=== PATIENT | female | born 1990 | race Caucasian/White ===

== ENCOUNTER 2023-10-26 21:55 | Emergency (ER) | payer MEDICAID, SELFPAY ==
[2023-10-26 21:59] VITALS: BP 147/118; PULSE 139; RESP 22; TEMP 37.3; O2SAT 96; BMI 39.9
--- NOTE | 2023-10-26 22:25 | XR_ITS ---
The [address] [address] Patient Name: FELIZ WEINBERG MRN: [id number] date: 1990 Sex: F Assigned Patient Location: ER Current Patient Location: ER Accession/Order Number: [id number] Exam Date: 10/26/2023 22:30 Report Date: 10/26/2023 22:49 At the request of: BRENNEN SAMUELS Procedure: XR hand LT min 3V EXAM: XR hand LT min 3V HISTORY: hand injury COMPARISON: None. TECHNIQUE: 3 views left hand FINDINGS: There is a anterior dislocation of the proximal fourth interphalangeal joint. Foreshortening of the joint of approximately 5-6 mm. No definite fracture. Carpal rows and arcs are maintained. XR/XR hand LT min 3V IMPRESSION: Anterior subluxation of the fourth proximal interphalangeal joint with overlying soft tissue swelling. Electronically authenticated by: KILO MONTERO Date: 10/26/2023 22:49
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
[2023-10-26] MEDS: ACETAMINOPHEN 500 MG TABLET 1000 MG PO (23:07)
[2023-10-26] MEDS: IBUPROFEN 400 MG TABLET 800 MG PO (23:08)
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
[2023-10-27] MEDS: ONDANSETRON 4 MG RAPDIS TABLET SL (00:11)
[2023-10-27 00:25] VITALS: BP 180/96; PULSE 118; RESP 16; TEMP 36.8; O2SAT 97
== END 2023-10-27 00:30 | disposition home or self-care (01) ==
PROVIDERS: Emergency Provider Emergency Medicine
DX: S63.285A Dislocation of proximal interphalangeal joint of left ring finger, initial encounter (principal); S09.90XA Unspecified injury of head, initial encounter; S00.03XA Contusion of scalp, initial encounter; Y04.8XXA Assault by other bodily force, initial encounter
CPT/HCPCS: 26770; 73130; 73140; 99283

== ENCOUNTER 2025-01-14 16:29 | Emergency (ER) | payer MEDICAID, SELFPAY ==
[2025-01-14 16:38] VITALS: BP 143/96; PULSE 112; TEMP 36.9; O2SAT 98; BMI 38.9
--- OUTSIDE RECORDS SUMMARY | 2025-01-14 16:44 | XMS_ITS | CCD ---
Author Organization [facility] CliniSyin Care Team Providers Care Biomass Plant Technician Name Role Phone SG, DR GALLAGHER Primary Care Unavailable PAY, DR CASSIDY Admitting Unavailable PAY, DR CASSIDY Attending Unavailable MERNA, DR GRAEME Greenwood Consulting Unavailable PAY, DR CASSIDY Consulting Unavailable MILLIE, ABIODUN HARRIS Consulting Unavailable ANI, DR ZOYA Carrizales Admitting Unavailable ANI, DR ZOYA Carrizales Attending Unavailable ROSA, DR GALLAGHER Primary Care Unavailable ANI, DR ZOYA Carrizales Consulting Unavailable HOMER RODRIGUEZ Consulting Unavailable [facility] Primary Care Provider ROSHAN Falk Emergency Provider [phone] [facility] Primary Care Provider DO Gagandeep Bernard Attending Provider [phone] DO Vignesh Vogel Other Provider [facility] Primary Care Provider Gagandeep Bernard DO Attending Provider Vignesh Vogel DO Other Provider Alec Antoine DO Emergency Provider Brayan Calderón MD Admit Provider Brayan Calderón MD Attending Provider [phone] [facility] Primary Care Unavaila Isak Avendano Attending Unavailable Isak Falk Admharvey Unavailable [facility] Primary Care Unavaila Gagandeep Yee Attending Unavailable Gagandeep Bernard Admitting Unavailable Vignesh Vogel Consulting Unavailable [facility] Primary Care Unavaila Brayan Kyle Attending Unavailable Brayan Calderón Admitting Unavailable Medications Current Medications Medication Drug Class(es) Dates Sig (Normalized) Sig (Original) [id number] 200 actuat albuterol 0.09 mg/actuat metered dose inhaler (7 sources) beta2-Adrenergic Agonist Start: 10-01-2024 End: 10-03-2024 take 1 puff(s) by inhalation every four hours as needed for wheezing Albuterol Sulfate 90 mcg/actuation HFA aerosol inhaler Active 1 PUFF INHALATION Q4H as needed for shortness of breath or wheezing 8.5 October 03, 2024 11:56am Start: 03-12-2018 End: 06-05-2018 take 1 puff(s) by inhalation every four to six hours as needed for wheezing Albuterol Sulfate 90 mcg/actuation Hfa Aerosol Inhaler Discontinued 2 PUFF INHALATION EVERY 4-6 HOURS as needed for Shortness Of Breath Or Wheezing March 11, 2018 11:00pm June 05, 2018 7:09pm Blood-Glucose Meter kit (1 source) Start: 10-03-2024 Blood-Glucose Meter kit Active KIT 1 October 03, 2024 12:00am glucose checks four times daily 0.5 ml dulaglutide 1.5 mg/ml auto-injector (2 sources) GLP-1 Receptor Agonist Start: 10-01-2024 Dulaglutide (Trulicity) 0.75 mg/0.5 mL pen injector Active 0.75 MG SUBCUT TU@0900 October 01, 2024 12:00am escitalopram 20 mg oral tablet (2 sources) Serotonin Reuptake Inhibitor Start: 10-01-2024 take 1 tablet by mouth once daily Escitalopram Oxalate 20 mg tablet Active 20 MG PO Daily October 01, 2024 12:00am Fluticasone Propion-Salmeterol (1 source) Corticosteroid, beta2-Adrenergic Agonist Start: 10-03-2024 Fluticasone Propion-Salmeterol (Advair Diskus) 250-50 mcg/dose blister with device Active 1 INH INHALATION Twice daily 60 October 03, 2024 12:00am may use whatever steroid/LABA inhaler is on formulary, if cheaper;intermediate or high dose hydrOXYzine pamoate 25 mg oral capsule (2 sources) Antihistamine Start: 10-01-2024 take 1 capsule by mouth three times daily as needed for anxiety Hydroxyzine Pamoate 25 mg capsule Active 25 MG PO Three times daily as needed for anxiety October 01, 2024 12:00am Insulin Aspart U-100 (Novolog Flexpen U-100 Insulin) 100 unit/mL (3 mL) Insulin Pen (1 source) Start: 10-03-2024 Insulin Aspart U-100 (Novolog Flexpen U-100 Insulin) 100 unit/mL (3 mL) Insulin Pen Active 0 UNIT SUBCUT 3X/Day with meals and bedtime 3 October 03, 2024 12:00am Please contact the information source for Protocol details. 3 ml insulin glargine 100 unt/ml pen injector (1 source) Insulin Analog Start: 10-03-2024 inject 10 [IU] by subcutaneous injection once daily Insulin Glargine (Lantus Solostar U-100 Insulin) 100 unit/mL (3 mL) Insulin Pen Active 10 UNIT SUBCUT Daily 0.5 October 03, 2024 12:00am isopropyl alcohol 0.7 ml/ml medicated pad (1 source) Start: 10-03-2024 Alcohol Swabs pads, medicated Active 1 PAD TOPICAL Four times daily October 03, 2024 12:00am glucose checks four times daily methylPREDNISolone 16 mg oral tablet (1 source) Corticosteroid Start: 10-03-2024 take 2 tablets by mouth twice daily Methylprednisolone 16 mg Tablet Active 32 MG PO Twice daily 20 October 03, 2024 12:00am Norgestimate-Ethinyl Estradiol (Fpg-Za-Chyawtcon) 0.18/0.215/0.25 mg-25 mcg tablet (2 sources) Start: 10-01-2024 take 1 tablet by mouth once daily Norgestimate-Ethinyl Estradiol (Aiy-Nw-Cwrzmaayh) 0.18/0.215/0.25 mg-25 mcg tablet Active 1 TAB PO Daily October 01, 2024 12:00am traZODone hydrochloride 50 mg oral tablet (2 sources) Serotonin Reuptake Inhibitor Start: 10-01-2024 take 1 tablet by mouth once daily at bedtime as needed for sleep Trazodone 50 mg tablet Active 50 MG PO Daily at bedtime as needed for sleep October 01, 2024 12:00am Completed/Discontinued Medications Medication Drug Class(es) Dates Sig (Normalized) Sig (Original) azithromycin 250 mg oral tablet (4 sources) Macrolide Antimicrobial Start: 03-12-2018 End: 06-05-2018 Azithromycin 250 mg tablet Discontinued 250 MG PO Daily March 11, 2018 11:00pm June 05, 2018 7:09pm Take two tabs (500mg) on day 1 then take one tab daily for 4 days benzonatate 100 mg oral capsule (4 sources) Non-narcotic Antitussive Start: 12-28-2017 End: 03-12-2018 take 2 capsules by mouth three times daily as needed for cough Benzonatate (Tessalon Perles) 100 mg capsule Discontinued 200 MG PO Three times daily as needed for cough December 28, 2017 12:00am March 12, 2018 10:24am ibuprofen 800 mg oral tablet (4 sources) Nonsteroidal Anti-inflammatory Drug Start: 07-15-2018 End: 10-01-2024 take 1 tablet by mouth three times daily as needed for pain Ibuprofen 800 mg tablet Discontinued 800 MG PO Three times daily as needed for pain July 14, 2018 11:00pm October 01, 2024 2:31pm predniSONE 20 mg oral tablet (4 sources) Start: 03-12-2018 End: 06-05-2018 take 2 tablets by mouth once daily at mealtime Prednisone 20 mg tablet Discontinued 40 MG PO Daily March 11, 2018 11:00pm June 05, 2018 7:09pm administer with food or milk Start: 03-12-2018 End: 06-05-2018 take 40 mg by mouth once daily at mealtime Prednisone Discontinued 40 MG PO Daily March 12, 2018 12:00am June 05, 2018 8:09pm administer with food or milk promethazine hydrochloride 25 mg oral tablet (4 sources) Phenothiazine Start: 06-05-2018 End: 07-15-2018 take 1 tablet by mouth every six hours as needed for nausea and vomiting Promethazine 25 mg tablet Discontinued 25 MG PO Q6H as needed for nausea and vomiting June 04, 2018 11:00pm July 15, 2018 6:28pm Problems Active Problems Problem Classification Problem Date Documented Da te Episodic/Chronic Abdominal pain (4 sources) Unspecified abdominal pain; Translations: [UNSPECIFIED ABDOMINAL PAIN] Onset: 01-24-2022 Episodic Acute bronchitis (5 sources) Acute bronchitis; Translations: [Acute bronchitis, unspecified] Onset: 10-01-2024 10-01-2024 Episodic Calculus of urinary tract (1 source) Calculus of ureter; Translations: [CALCULUS OF URETER] Onset: 01-26-2022 Episodic Chronic obstructive pulmonary disease and bronchiectasis (4 sources) Bronchitis; Translations: [Bronchitis, not specified as acute or chronic] 11-01-2023 Episodic Comment on above: Problem List clean-u p per request of Phys. EHR Cmte Diabetes mellitus without complication (1 source) Hyperglycemia, unspecified; Translations: [Hyperglycemia, unspecified] Onset: 10-01-2024 Episodic Nausea and vomiting (1 source) Nausea with vomiting, unspecified; Translations: [NAUSEA WITH VOMITING UNSPECIFIED] Onset: 01-26-2022 Episodic Other connective tissue disease (3 sources) Pain in left foot; Translations: [PAIN IN LEFT FOOT] Onset: 01-22-2022 Episodic Other connective tissue disease (1 source) Achilles tendinitis, left leg; Translations: [ACHILLES TENDINITIS LEFT LEG] Onset: 01-24-2022 Episodic Other connective tissue disease (4 sources) Tendinitis of finger; Translations: [Other enthesopathies, not elsewhere classified] 02-08-2024 Episodic Other upper respiratory infections (4 sources) Acute upper respiratory infection; Translations: [Acute upper respiratory infection, unspecified] 11-01-2023 Episodic Comment on above: Problem List clean-u p per request of Phys. EHR Cmte Respiratory failure; insufficiency; arrest (adult) (5 sources) Acute hypoxemic respiratory failure; Translations: [Acute respiratory failure with hypoxia] Onset: 10-01-2024 10-01-2024 Episodic Past or Other Problems Problem Classification Problem Date Documented Da te Episodic/Chronic Other connective tissue disease (1 source) Pain in left finger(s); Translations: [Pain in left finger(s)] Onset: 02-08-2024 Episodic Results Test Name Value Interpretation Reference Range Facility Basophils Auto (Bld) [#/Vol] Ordered By: Milady Jay on 10-03-2024 Basophils (Bld) [#/Vol] Automated basophil count 0.0-0.2 [facility] Basophils/100 WBC Auto (Bld) Ordered By: Milady Jay on 10-03-2024 Basophils/100 WBC (Bld) Automated basophil % . [facility] Complete Blood Count Auto Di ffon 10-03-2024 Basophils (Bld) [#/Vol] 0.0 10*3/uL Normal 0.0-0.2 [facility] Comment on above: Result Comment: PERF ORMED BY: [place] [address] PATHOLOGIST ORDINARY SEAMAN MALENA SORIA M.D. Performed By: #### C OVID19 FLU RSV, CEPHEID NEG #### [address] Basophils/100 WBC (Bld) 0.2 % Normal . [facility] Comment on above: Performed By: #### C OVID19 FLU RSV, CEPHEID NEG #### [address] Eosinophils (Bld) [#/Vol] 0.0 10*3/uL Normal 0.0-0.45 [facility] Comment on above: Performed By: #### C OVID19 FLU RSV, CEPHEID NEG #### [address] Eosinophils/100 WBC (Bld) 0.1 % Normal . [facility] Comment on above: Performed By: #### C OVID19 FLU RSV, CEPHEID NEG #### [address] Erythrocyte distribution width (RBC) [Ratio] 12.6 % Normal 11.9-15.3 [facility] Comment on above: Performed By: #### C OVID19 FLU RSV, CEPHEID NEG #### [address] Hematocrit (Bld) [Volume fraction] 37.9 % Normal 34.0-46.4 [facility] Comment on above: Performed By: #### C OVID19 FLU RSV, CEPHEID NEG #### [address] Hemoglobin (Bld) [Mass/Vol] 13.3 g/dL Normal 11.8-15.4 [facility] Comment on above: Performed By: #### C OVID19 FLU RSV, CEPHEID NEG #### [place] [address] [place] Lymphocytes (Bld) [#/Vol] 2.5 10*3/uL Normal 1.00-4.8 [facility] Comment on above: Performed By: #### C OVID19 FLU RSV, CEPHEID NEG #### [address] Lymphocytes/100 WBC (Bld) 12.6 % Normal . [facility] Comment on above: Performed By: #### C OVID19 FLU RSV, CEPHEID NEG #### [address] MCH (RBC) [Entitic mass] 30.1 pg Normal 24.7-34.3 [facility] Comment on above: Performed By: #### C OVID19 FLU RSV, CEPHEID NEG #### [address] MCV (RBC) [Entitic vol] 86.0 fL Normal 80-100 [facility] Comment on above: Performed By: #### C OVID19 FLU RSV, CEPHEID NEG #### [address] Mean Corpuscular HGB Conc 35.0 g/dL Normal 32.0-35.0 [facility] Comment on above: Performed By: #### C OVID19 FLU RSV, CEPHEID NEG #### [address] Monocytes (Bld) [#/Vol] 0.9 10*3/uL High 0.0-0.8 [facility] Comment on above: Performed By: #### C OVID19 FLU RSV, CEPHEID NEG #### [address] Monocytes/100 WBC (Bld) 4.3 % Normal . [facility] Comment on above: Performed By: #### C OVID19 FLU RSV, CEPHEID NEG #### [address] Neutrophils (Bld) [#/Vol] 16.6 10*3/uL High 1.8-7.7 [facility] Comment on above: Performed By: #### C OVID19 FLU RSV, CEPHEID NEG #### [address] Neutrophils/100 WBC (Bld) 82.8 % Normal . [facility] Comment on above: Performed By: #### C OVID19 FLU RSV, CEPHEID NEG #### [address] NRBC% 0.0 /100{WBC} Normal 0-0.5 [facility] Comment on above: Performed By: #### C OVID19 FLU RSV, CEPHEID NEG #### [address] Platelet mean volume (Bld) [Entitic vol] 6.3 fL Normal 6.3-10.7 [facility] Comment on above: Performed By: #### C OVID19 FLU RSV, CEPHEID NEG #### [address] Platelets (Bld) [#/Vol] 434 10*3/uL Normal 150-450 [facility] Comment on above: Performed By: #### C OVID19 FLU RSV, CEPHEID NEG #### [address] RBC (Bld) [#/Vol] 4.41 10*6/uL Normal 3.60-5.00 [facility] Comment on above: Performed By: #### C OVID19 FLU RSV, CEPHEID NEG #### [address] WBC (Bld) [#/Vol] 20.0 10*3/uL High 3.8-11.6 [facility] Comment on above: Performed By: #### C OVID19 FLU RSV, CEPHEID NEG #### [place] [address] [place] Eosinophils Auto (Bld) [#/Vo l]Ordered By: Milady Jay on 10-03-2024 Eosinophils (Bld) [#/Vol] Automated eosinophil count 0.0-0.45 [facility] Eosinophils/100 WBC Auto (Bl d)Ordered By: Milady Jay on 10-03-2024 Eosinophils/100 WBC (Bld) Automated eosinophil % . [facility] Erythrocyte distribution wid th Auto (RBC) [Ratio]Ordered By: Milady Jay on 10-03-2024 Erythrocyte distribution width (RBC) [Ratio] Erythrocyte distribution width [Ratio] by Automated count 11.9-15.3 [facility] Glucose Glucometer (BldC) [M ass/Vol]Ordered By: Brayan Calderón on 10-03-2024 Glucose [Mass/Vol] Capillary blood gluc ose measurement by glucometer (mass/volume) [facility] Comment on above: Random Glucose Refer ence Range is dependent on time and content of last meal. Glucose of more than 200 mg/dL in a nonstressed, ambulatory subject supports the diagnosis of Diabetes Mellitus. Glucose Poct Glucometerson 1 12-03-2023 Glucose [Mass/Vol] 216 mg/dL Normal [facility] Comment on above: Result Comment: [place] Glucose Reference Range is dependent on time and content of last meal. Glucose of more than 200 mg/dL in a nonstressed, ambulatory subject supports the diagnosis of Diabetes Mellitus. PERFORMED BY: [place] [address] PATHOLOGIST ORDINARY SEAMAN MALENA SORIA M.D. Performed By: #### C OVID19 FLU RSV, CEPHEID NEG #### [address] Glucose [Mass/Vol] 273 mg/dL Normal [facility] Comment on above: Result Comment: [place] [facility] Glucose Reference Range is dependent on time and content of last meal. Glucose of more than 200 mg/dL in a nonstressed, ambulatory subject supports the diagnosis of Diabetes Mellitus. PERFORMED BY: [place] [address] PATHOLOGIST ORDINARY SEAMAN MALENA SORIA M.D. Performed By: #### C OVID19 FLU RSV, CEPHEID NEG #### [facility] [address] Hematocrit Auto (Bld) [Volum e fraction]Ordered By: Milady Jay on 10-03-2024 Hematocrit (Bld) [Volume fraction] Hematocrit [Volume Fraction] of Blood by Automated count 34.0-46.4 [facility] Hemoglobin [Mass/volume] in BloodOrdered By: Milady Jay on 10-03-2024 Hemoglobin (Bld) [Mass/Vol] Hemoglobin [Mass/volume] in Blood 11.8-15.4 [facility] Leukocytes [#/volume] correc david for nucleated erythrocytes in Blood by Automated counOrdered By: Milady Jay on 10-03-2024 WBC corrected for nucl RBC Auto (Bld) [#/Vol] Leukocytes [#/volume] corrected for nucleated erythrocytes in Blood by Automated coun High 3.8-11.6 [facility] Lymphocytes Auto (Bld) [#/Vo l]Ordered By: Milady Jay on 10-03-2024 Lymphocytes (Bld) [#/Vol] Lymphocytes [#/volume] in Blood by Automated count 1.00-4.8 [facility] Lymphocytes/100 WBC Auto (Bl d)Ordered By: Milady Jay on 10-03-2024 Lymphocytes/100 WBC (Bld) Lymphocytes/100 leukocytes in Blood by Automated count . [facility] MCH Auto (RBC) [Entitic mass ]Ordered By: Milady Jay on 10-03-2024 MCH (RBC) [Entitic mass] MCH [Entitic mass] by Automated count 24.7-34.3 [facility] MCHC Auto (RBC) [Mass/Vol]Or dered By: Milady Jay on 10-03-2024 MCHC (RBC) [Mass/Vol] MCHC [Mass/volume] by Automated count 32.0-35.0 [facility] MCV Auto (RBC) [Entitic vol] Ordered By: Milady Jay on 10-03-2024 MCV (RBC) [Entitic vol] MCV [Entitic volume] by Automated count 80-100 [facility] Monocytes Auto (Bld) [#/Vol] Ordered By: Milady Jay on 10-03-2024 Monocytes (Bld) [#/Vol] Automated blood monocyte count High 0.0-0.8 [facility] Monocytes/100 WBC Auto (Bld) Ordered By: Milady Jay on 10-03-2024 Monocytes/100 WBC (Bld) Automated monocyte % . [facility] Neutrophils Auto (Bld) [#/Vo l]Ordered By: Milady Jay on 10-03-2024 Neutrophils (Bld) [#/Vol] Neutrophils [#/volume] in Blood by Automated count High 1.8-7.7 [facility] Neutrophils/100 WBC Auto (Bl d)Ordered By: Milady Jay on 10-03-2024 Neutrophils/100 WBC (Bld) Automated neutrophil % . [facility] Nucleated erythrocytes [Pres ence] in Blood by Automated countOrdered By: Milady Jay on 10-03-2024 Nucleated RBC Auto Ql (Bld) Nucleated erythrocytes [Presence] in Blood by Automated count 0-0.5 [facility] Platelet mean volume Auto (B ld) [Entitic vol]Ordered By: Milady Jay on 10-03-2024 Platelet mean volume (Bld) [Entitic vol] Platelet mean volume [Entitic volume] in Blood by Automated count 6.3-10.7 [facility] Platelets Auto (Bld) [#/Vol] Ordered By: Milady Jay on 10-03-2024 Platelets (Bld) [#/Vol] Platelets [#/volume] in Blood by Automated count 150-450 [facility] RBC Auto (Bld) [#/Vol]Ordere d By: Milady Jay on 10-03-2024 RBC (Bld) [#/Vol] Erythrocytes [#/volu me] in Blood by Automated count 3.60-5.00 [facility] WBC Auto (Bld) [#/Vol]Ordere d By: Milady Jay on 10-03-2024 WBC (Bld) [#/Vol] Leukocytes [#/volume ] in Blood by Automated count High 3.8-11.6 [facility] Complete Blood Count Auto Di ffon 10-02-2024 Basophils (Bld) [#/Vol] 0.1 10*3/uL Normal 0.0-0.2 [facility] Comment on above: Result Comment: PERF ORMED BY: [facility] [address] [place] [address] PATHOLOGIST ORDINARY SEAMAN DUC QUIGLEY M.D. Performed By: #### M G, CMP #### [facility] [address] [place] [address] [place] Basophils/100 WBC (Bld) 0.3 % Normal . [facility] Comment on above: Performed By: #### M G, CMP #### [facility] [address] [place] [address] [place] Eosinophils (Bld) [#/Vol] 0.0 10*3/uL Normal 0.0-0.45 [facility] Comment on above: Performed By: #### M G, CMP #### [facility] [address] Eosinophils/100 WBC (Bld) 0.1 % Normal . [facility] Comment on above: Performed By: #### M G, CMP #### [address] Erythrocyte distribution width (RBC) [Ratio] 12.6 % Normal 11.9-15.3 [facility] Comment on above: Performed By: #### M G, CMP #### [address] Hematocrit (Bld) [Volume fraction] 40.0 % Normal 34.0-46.4 [facility] Comment on above: Performed By: #### M G, CMP #### [place] [address] [place] Hemoglobin (Bld) [Mass/Vol] 13.8 g/dL Normal 11.8-15.4 [facility] Comment on above: Performed By: #### M G, CMP #### [facility] [address] [place] [address] [place] Lymphocytes (Bld) [#/Vol] 2.0 10*3/uL Normal 1.00-4.8 [facility] Comment on above: Performed By: #### M G, CMP #### [facility] [address] [place] [address] [place] Lymphocytes/100 WBC (Bld) 9.3 % Normal . [facility] Comment on above: Performed By: #### M G, CMP #### [address] MCH (RBC) [Entitic mass] 29.5 pg Normal 24.7-34.3 [facility] Comment on above: Performed By: #### M G, CMP #### [address] MCV (RBC) [Entitic vol] 85.5 fL Normal 80-100 [facility] Comment on above: Performed By: #### Yaakov G, CMP #### [address] Mean Corpuscular HGB Conc 34.6 g/dL Normal 32.0-35.0 [facility] Comment on above: Performed By: #### Yaakov G, CMP #### [address] Monocytes (Bld) [#/Vol] 0.8 10*3/uL Normal 0.0-0.8 [facility] Comment on above: Performed By: #### Yaakov G, CMP #### [place] [address] [place] Monocytes/100 WBC (Bld) 3.8 % Normal . [facility] Comment on above: Performed By: #### Yaakov G, CMP #### [address] Neutrophils (Bld) [#/Vol] 18.6 10*3/uL High 1.8-7.7 [facility] Comment on above: Performed By: #### Yaakov G, CMP #### [address] Neutrophils/100 WBC (Bld) 86.5 % Normal . [facility] Comment on above: Performed By: #### M G, CMP #### [address] NRBC% 0.1 /100{WBC} Normal 0-0.5 [facility] Comment on above: Performed By: #### Yaakov G, CMP #### [facility] [address] Platelet mean volume (Bld) [Entitic vol] 6.2 fL Low 6.3-10.7 [facility] Comment on above: Performed By: #### M G, CMP #### [facility] [address] Platelets (Bld) [#/Vol] 432 10*3/uL Normal 150-450 [facility] Comment on above: Performed By: #### Yaakov G, CMP #### [address] RBC (Bld) [#/Vol] 4.68 10*6/uL Normal 3.60-5.00 [facility] Comment on above: Performed By: #### Yaakov G, CMP #### [address] WBC (Bld) [#/Vol] 21.5 10*3/uL High 3.8-11.6 [facility] Comment on above: Performed By: #### Yaakov G, CMP #### [address] Glucose Poct Glucometerson 1 12-02-2023 Glucose [Mass/Vol] 170 mg/dL Normal [facility] Comment on above: Result Comment: [facility] Glucose Reference Range is dependent on time and content of last meal. Glucose of more than 200 mg/dL in a nonstressed, ambulatory subject supports the diagnosis of Diabetes Mellitus. PERFORMED BY: [place] [address] PATHOLOGIST ORDINARY SEAMAN MALENA SORIA M.D. Performed By: #### C OVID19 FLU RSV, CEPHEID NEG #### [address] Glucose [Mass/Vol] 214 mg/dL Normal [facility] Comment on above: Result Comment: [facility] Glucose Reference Range is dependent on time and content of last meal. Glucose of more than 200 mg/dL in a nonstressed, ambulatory subject supports the diagnosis of Diabetes Mellitus. PERFORMED BY: [place] [address] PATHOLOGIST ORDINARY SEAMAN MALENA SORAI M.D. Performed By: #### C OVID19 FLU RSV, CEPHEID NEG #### [facility] [address] [place] [address] Glucose [Mass/Vol] 241 mg/dL Normal [facility] Comment on above: Result Comment: [place] Glucose Reference Range is dependent on time and content of last meal. Glucose of more than 200 mg/dL in a nonstressed, ambulatory subject supports the diagnosis of Diabetes Mellitus. PERFORMED BY: [place] [address] PATHOLOGIST ORDINARY SEAMAN MALENA SORIA M.D. Performed By: #### M G, CMP #### [facility] [address] [place] [address] Glucose [Mass/Vol] 214 mg/dL Normal [facility] Comment on above: Result Comment: [place] Glucose Reference Range is dependent on time and content of last meal. Glucose of more than 200 mg/dL in a nonstressed, ambulatory subject supports the diagnosis of Diabetes Mellitus. PERFORMED BY: [place] [address] PATHOLOGIST ORDINARY SEAMAN DUC QUIGLEY M.D. Performed By: #### G LULS #### Point of Care testing , Alanine aminotransferase [En zymatic activity/volume] in Serum or PlasmaOrdered By: Alec Antoine on 10-01-2024 ALT [Catalytic activity/Vol] Alanine aminotransferase [Enzymatic activity/volume] in Serum or Plasma [facility] Albumin [Mass/volume] in Ser um or Plasma by Bromocresol green (BCG) dye binding methoOrdered By: Alec Antoine on 10-01-2024 Albumin BCG dye [Mass/Vol] Albumin [Mass/volume] in Serum or Plasma by Bromocresol green (BCG) dye binding metho 3.5-5.7 [facility] Alkaline phosphatase [Enzyma tic activity/volume] in Serum or PlasmaOrdered By: Alec Antoine on 10-01-2024 ALP [Catalytic activity/Vol] Alkaline phosphatase [Enzymatic activity/volume] in Serum or Plasma 34-104 [facility] Appearance of UrineOrdered B y: Alec Antoine on 10-01-2024 Appearance (U) Urine appearance Clear [facility] Aspartate aminotransferase [ Enzymatic activity/volume] in Serum or PlasmaOrdered By: Alec Antoine on 10-01-2024 AST [Catalytic activity/Vol] Aspartate aminotransferase [Enzymatic activity/volume] in Serum or Plasma 13-39 [facility] B-Type Natriuretic Peptideon 10-01-2024 Natriuretic peptide B (Bld) [Mass/Vol] 22.0 pg/mL Normal 5-100 [facility] Comment on above: Result Comment: PERF ORMED BY: [facility] [address] [place] [address] PATHOLOGIST ORDINARY SEAMAN DUC QUIGLEY M.D. Performed By: #### B CONVERTIBLE TOP INSTALLER, PTT, PT, CBC, HS TROP, CK #### [facility] [address] Bacteria [Presence] in Urine by AutomatedOrdered By: Alec Antoine on 10-01-2024 Bacteria Auto Ql (U) Bacteria [Presence] in Urine by Automated None Seen [facility] Basophils Auto (Bld) [#/Vol] Ordered By: Alec Antoine on 10-01-2024 Basophils (Bld) [#/Vol] Automated basophil count 0.0-0.2 [facility] Basophils/100 WBC Auto (Bld) Ordered By: Alec Antoine on 10-01-2024 Basophils/100 WBC (Bld) Automated basophil % . [facility] Bilirubin Test strip Ql (U)O rdered By: Alec Antoine on 10-01-2024 Bilirubin Ql (U) Bilirubin.total [Pre sence] in Urine by Test strip Negative [facility] Bilirubin.total [Mass/volume ] in Serum or PlasmaOrdered By: Alec Antoine on 10-01-2024 Bilirubin [Mass/Vol] Bilirubin.total [Mass/volume] in Serum or Plasma 0.3-1.0 [facility] Blood Cultureon 10-01-2024 Bacteria identified Cx Nom (Bld) NO GROWTH 5 DAYS PERFORMED BY: [facility] [address] [facility] [place] [address] PATHOLOGIST ORDINARY SEAMAN MALENA SORIA M.D. Normal [facility] Comment on above: Performed By: #### M G, CMP #### [facility] [address] [place] [address] [facility] COVID Cepheid NegativeOrdere d By: Alec Antoine on 10-01-2024 SARS-CoV-2 (COVID-19) Ab IA Ql COVID Cepheid Negative [facility] Comment on above: This is a duplicate Cepheid Xpert Xpress CoV-2/Flu/RSV Plus RNA by RT-PCR result to be used for statistical tracking purpose only. COVID-19 / Flu A/B / RSV PCR on 10-01-2024 SARS-CoV-2 (COVID-19) RNA STEPHAN+probe Ql (Unsp spec) COVID-19 Cepheid Result Negative for SARS-CoV-2 RNA by RT-PCR Flu A Cepheid Result Negative for Flu A RNA by RT-PCR Flu B Cepheid Result Negative for Flu B RNA by RT-PCR RSV Cepheid Result Negative for RSV RNA by RT-PCR COVID19 Blank Space -- Reference: Negative COVID19 Blank Space -- Cepheid Disclaimer The Cepheid Xpert Xpress CoV-2/Flu/RSV Plus has Cepheid Disclaimer not been FDA cleared or approved; this test has Cepheid Disclaimer been authorized by FDA under an EUA for use by Cepheid Disclaimer authorized laboratories; this test has been Cepheid Disclaimer authorized only for the simultaneous qualitative Cepheid Disclaimer detection and differentiation of nucleic acids from Cepheid Disclaimer SARS-CoV-2, influenza A, influenza B, and Cepheid Disclaimer respiratory syncytial virus (RSV), and not for any Cepheid Disclaimer other viruses or pathogens; and this test is only Cepheid Disclaimer authorized for the duration of the declaration that Cepheid Disclaimer circumstances exist justifying the authorization of Cepheid Disclaimer emergency use of in vitro diagnostic tests for Cepheid Disclaimer detection and/or diagnosis of COVID-19 under Cepheid Disclaimer Section 564(b)(1) of the Act, 21 U.S.C. 360bbb- Cepheid Disclaimer 3(b)(1), unless the authorization is terminated or Cepheid Disclaimer revoked sooner. PERFORMED BY: [place] [address] PATHOLOGIST ORDINARY SEAMAN DUC QUIGLEY M.D. Normal [facility] Comment on above: Performed By: #### C OVID19 FLU RSV, CEPHEID NEG #### [address] angio chest PE protocolon 10-01-2024 CT angio chest PE protocol [facility] [place] [address] [place] [address] CT Scan Report Signed Patient: Stephanie Zayas MR#: [id number] : 1990 Acct:[id number] Age/Sex: 34 / F ADM Date: 10/01/24 Loc: ER Room: Type: [facility] Attending Dr: Copies to: Alec Antoine DO Ordering Provider: Alec Antoine DO Date of Service: 10/01/24 CT/CT angio chest PE protocol: dyspnea CT PULMONARY ANGIOGRAM WITH CONTRAST CLINICAL HISTORY: Cough and shortness of breath COMPARISON: None TECHNIQUE: Spiral images were obtained through the chest following intravenous administration of 90 mL of Isovue 370. Images were reviewed using both narrow and wide window settings. Sagittal, coronal and 3 D volume-rendered reconstructions were performed and reviewed. This CT exam was performed using one or more following dose reduction techniques: Automated exposure control, adjustment of the mA and/or kV according to patient size, or use of iterative reconstruction technique. FINDINGS: The heart is not enlarged. There is no pericardial effusion. No aortic aneurysm or dissection is seen. There is adequate opacification of the pulmonary arteries. There is some res piratory motion. No definite urinary emboli are identified. A few small nonpathologic mediastinal lymph nodes are present. There is minor endplate spurring at the spine. Respiratory motion slightly limits evaluation of the lung parenchyma. There is no infiltrate, effusion or pneumothorax. The tiny left lower lobe nodular density adjacent to the major fissure may be an intrapulmonary lymph node. Limited cuts through the upper abdomen show possible fatty liver. There is a tiny low-density left adrenal nodule and mild thickening of the adrenal limbs. CT/CT angio chest PE protocol IMPRESSION: NO OBVIOUS PULMONARY EMBOLISM WITHIN LIMITS OF RESPIRATORY MOTION. NO ACUTE INTRATHORACIC FINDINGS. Impression dictated by: Kati Mckeon M.D.10/01/2024 1:55 PM Dictation Location: [place] [address] Transcribed By: MO 10/01/24 1355 Dictated By: Kati Mckeon MD 10/01/24 1347 Signed By: 10/01/24 1355 Normal [facility] Calcium [Mass/volume] in Ser um or PlasmaOrdered By: Alec Antoine on 10-01-2024 Calcium [Mass/Vol] Calcium [Mass/volume ] in Serum or Plasma 8.6-10.3 [facility] Carbon dioxide, total [Moles /volume] in Serum or PlasmaOrdered By: Alec Antoine on 10-01-2024 CO2 [Moles/Vol] Carbon dioxide, tota l [Moles/volume] in Serum or Plasma 21.0-31.0 [facility] Cepheid COVID PCR Negativeon 10-01-2024 SARS-CoV-2 (COVID-19) RNA STEPHAN+probe Ql (Unsp spec) Negative Normal Negative [facility] Comment on above: Result Comment: This is a duplicate Cepheid Xpert Xpress CoV-2/Flu/RSV Plus RNA by RT-PCR result to be used for statistical tracking purpose only. PERFORMED BY: [place] [address] PATHOLOGIST ORDINARY SEAMAN DUC QUIGLEY M.D. Performed By: #### C OVID19 FLU RSV, CEPHEID NEG #### [address] Chloride [Moles/volume] in S zully or PlasmaOrdered By: Alec Antoine on 10-01-2024 Chloride [Moles/Vol] Chloride [Moles/vol ume] in Serum or Plasma 98-107 [facility] Color Auto (U)Ordered By: Shailesh Antoine on 10-01-2024 Color (U) Color of Urine by Auto Yellow [facility] Complete Blood Count Auto Di ffon 10-01-2024 Basophils (Bld) [#/Vol] 0.1 10*3/uL Normal 0.0-0.2 [facility] Comment on above: Result Comment: PERF ORMED BY: [place] [address] PATHOLOGIST ORDINARY SEAMAN DUC QUIGLEY M.D. Performed By: #### B CONVERTIBLE TOP INSTALLER, PTT, PT, CBC, HS TROP, CK #### [address] Basophils/100 WBC (Bld) 0.8 % Normal . [facility] Comment on above: Performed By: #### B CONVERTIBLE TOP INSTALLER, PTT, PT, CBC, HS TROP, CK #### [address] Eosinophils (Bld) [#/Vol] 1.1 10*3/uL High 0.0-0.45 [facility] Comment on above: Performed By: #### B CONVERTIBLE TOP INSTALLER, PTT, PT, CBC, HS TROP, CK #### [address] Eosinophils/100 WBC (Bld) 5.8 % Normal . [facility] Comment on above: Performed By: #### B CONVERTIBLE TOP INSTALLER, PTT, PT, CBC, HS TROP, CK #### [address] Erythrocyte distribution width (RBC) [Ratio] 12.9 % Normal 11.9-15.3 [facility] Comment on above: Performed By: #### B CONVERTIBLE TOP INSTALLER, PTT, PT, CBC, HS TROP, CK #### [address] Hematocrit (Bld) [Volume fraction] 40.9 % Normal 34.0-46.4 [facility] Comment on above: Performed By: #### B CONVERTIBLE TOP INSTALLER, PTT, PT, CBC, HS TROP, CK #### [address] Hemoglobin (Bld) [Mass/Vol] 14.4 g/dL Normal 11.8-15.4 [facility] Comment on above: Performed By: #### B CONVERTIBLE TOP INSTALLER, PTT, PT, CBC, HS TROP, CK #### [address] Lymphocytes (Bld) [#/Vol] 2.5 10*3/uL Normal 1.00-4.8 [facility] Comment on above: Performed By: #### B CONVERTIBLE TOP INSTALLER, PTT, PT, CBC, HS TROP, CK #### [address] Lymphocytes/100 WBC (Bld) 13.6 % Normal . [facility] Comment on above: Performed By: #### B CONVERTIBLE TOP INSTALLER, PTT, PT, CBC, HS TROP, CK #### [address] MCH (RBC) [Entitic mass] 30.3 pg Normal 24.7-34.3 [facility] Comment on above: Performed By: #### B CONVERTIBLE TOP INSTALLER, PTT, PT, CBC, HS TROP, CK #### [address] MCV (RBC) [Entitic vol] 85.8 fL Normal 80-100 [facility] Comment on above: Performed By: #### B CONVERTIBLE TOP INSTALLER, PTT, PT, CBC, HS TROP, CK #### [address] Mean Corpuscular HGB Conc 35.3 g/dL High 32.0-35.0 [facility] Comment on above: Performed By: #### B CONVERTIBLE TOP INSTALLER, PTT, PT, CBC, HS TROP, CK #### [address] Monocytes (Bld) [#/Vol] 1.3 10*3/uL High 0.0-0.8 [facility] Comment on above: Performed By: #### B CONVERTIBLE TOP INSTALLER, PTT, PT, CBC, HS TROP, CK #### [facility] [address] [place] [address] [place] Monocytes/100 WBC (Bld) 18.16 % Normal 0.00-20.00 [facility] Comment on above: Performed By: #### B CONVERTIBLE TOP INSTALLER, PTT, PT, CBC, HS TROP, CK #### [place] [address] [place] Monocytes/100 WBC (Bld) 7.2 % Normal . [facility] Comment on above: Performed By: #### B CONVERTIBLE TOP INSTALLER, PTT, PT, CBC, HS TROP, CK #### [address] Neutrophils (Bld) [#/Vol] 13.1 10*3/uL High 1.8-7.7 [facility] Comment on above: Performed By: #### B CONVERTIBLE TOP INSTALLER, PTT, PT, CBC, HS TROP, CK #### [place] [address] [place] Neutrophils/100 WBC (Bld) 72.6 % Normal . [facility] Comment on above: Performed By: #### B CONVERTIBLE TOP INSTALLER, PTT, PT, CBC, HS TROP, CK #### [place] [address] [place] NRBC% 0.1 /100{WBC} Normal 0-0.5 [facility] Comment on above: Performed By: #### B CONVERTIBLE TOP INSTALLER, PTT, PT, CBC, HS TROP, CK #### [place] [address] [place] Platelet mean volume (Bld) [Entitic vol] 6.1 fL Low 6.3-10.7 [facility] Comment on above: Performed By: #### B CONVERTIBLE TOP INSTALLER, PTT, PT, CBC, HS TROP, CK #### [place] [address] [place] Platelets (Bld) [#/Vol] 423 10*3/uL Normal 150-450 [facility] Comment on above: Performed By: #### B CONVERTIBLE TOP INSTALLER, PTT, PT, CBC, HS TROP, CK #### [address] RBC (Bld) [#/Vol] 4.77 10*6/uL Normal 3.60-5.00 [facility] Comment on above: Performed By: #### B CONVERTIBLE TOP INSTALLER, PTT, PT, CBC, HS TROP, CK #### [address] WBC (Bld) [#/Vol] 18.1 10*3/uL High 3.8-11.6 [facility] Comment on above: Performed By: #### B CONVERTIBLE TOP INSTALLER, PTT, PT, CBC, HS TROP, CK #### [address] Comprehensive Metabolic Pane [facility] 10-01-2024 Albumin [Mass/Vol] 4.7 g/dL Normal 3.5-5.7 [facility] Comment on above: Performed By: #### Yaakov Vigil, CMP #### [address] Albumin/Globulin [Mass ratio] 1.4 {ratio} Normal [facility] Comment on above: Performed By: #### Yaakov Vigil, CMP #### [address] ALP [Catalytic activity/Vol] 78 U/L Normal 34-104 [facility] Comment on above: Performed By: #### M Musa, CMP #### [address] ALT [Catalytic activity/Vol] 40 U/L Normal 7-52 [facility] Comment on above: Performed By: #### M G, CMP #### [address] Anion gap [Moles/Vol] 14.5 mmol/L Normal 6.0-15.0 [facility] Comment on above: Performed By: #### Yaakov Vigil, CMP #### [address] AST [Catalytic activity/Vol] 23 U/L Normal 13-39 [facility] Comment on above: Performed By: #### Yaakov Vigil, CMP #### [address] Bilirubin [Mass/Vol] 0.5 mg/dL Normal 0.3-1.0 [facility] Comment on above: Performed By: #### Yaakov Vigil, CMP #### [address] Calcium [Mass/Vol] 9.3 mg/dL Normal 8.6-10.3 [facility] Comment on above: Performed By: #### Yaakov Vigil, CMP #### [address] Chloride [Moles/Vol] 102 mmol/L Normal 98-107 [facility] Comment on above: Performed By: #### Yaakov Vigil, CMP #### [address] CO2 [Moles/Vol] 22.4 mmol/L Normal 21.0-31.0 [facility] Comment on above: Performed By: #### Yaakov Vigil, CMP #### [address] Creatinine [Mass/Vol] 0.60 mg/dL Normal 0.60-1.20 [facility] Comment on above: Performed By: #### Yaakov Vigil, CMP #### [address] Creatinine Clr Calc Pharmacy 176.33 Normal [facility] Comment on above: Performed By: #### Yaakov Vigil, CMP #### [address] GFR/1.73 sq M.predicted MDRD (S/P/Bld) [Vol rate/Area] mL/min/{1.73_m2} Normal [facility] Comment on above: Performed By: #### Yaakov Vigil, CMP #### [address] Globulin (S) [Mass/Vol] 3.3 g/dL Normal [facility] Comment on above: Performed By: #### M G, CMP #### [address] Glucose [Mass/Vol] 220 mg/dL High 70-100 [facility] Comment on above: Result Comment: [place] Glucose Reference Range is dependent on time and content of last meal. Glucose of more than 200 mg/dL in a nonstressed, ambulatory subject supports the diagnosis of Diabetes Mellitus. ADA recommended reference range Performed By: #### M G, CMP #### [address] Potassium [Moles/Vol] 3.9 mmol/L Normal 3.5-5.1 [facility] Comment on above: Performed By: #### Yaakov G, CMP #### [place] [address] [place] Protein [Mass/Vol] 8.0 g/dL Normal 6.4-8.9 [facility] Comment on above: Performed By: #### Yaakov G, CMP #### [place] [address] [place] Sodium [Moles/Vol] 135 mmol/L Low 136-145 [facility] Comment on above: Performed By: #### Yaakov G, CMP #### [place] [id number] [place] Urea nitrogen [Mass/Vol] 10 mg/dL Normal 7-25 [facility] Comment on above: Performed By: #### M G, CMP #### [place] [id number] [place] Creatine Kinaseon 10-01-2024 CK [Catalytic activity/Vol] 147 U/L Normal 30-223 [facility] Comment on above: Performed By: #### B CONVERTIBLE TOP INSTALLER, PTT, PT, CBC, HS TROP, CK #### [place] [id number] [place] Creatine kinase [Enzymatic a ctivity/volume] in Serum or PlasmaOrdered By: Alec Antoine on 10-01-2024 CK [Catalytic activity/Vol] Creatine kinase [Enzymatic activity/volume] in Serum or Plasma 30-223 [facility] Creatinine [Mass/volume] in Serum or PlasmaOrdered By: Alec Antoine on 10-01-2024 Creatinine [Mass/Vol] Creatinine [Mass/v olume] in Serum or Plasma 0.60-1.20 [facility] Dipstick and Microscopicon 1 12-01-2023 Appearance (U) Clear Normal Clear [facility] Comment on above: Order Comment: Name Collection Type:: Clean-Voided Midstream Performed By: #### C OVID19 FLU RSV, CEPHEID NEG #### [address] Bacteria,Urine None Seen Normal None Seen [facility] Comment on above: Order Comment: Name Collection Type:: Clean-Voided Midstream Performed By: #### C OVID19 FLU RSV, CEPHEID NEG #### [place] [address] [place] Bilirubin,Urine Negative Normal Negative [facility] Comment on above: Order Comment: Name Collection Type:: Clean-Voided Midstream Performed By: #### C OVID19 FLU RSV, CEPHEID NEG #### [place] [address] [place] Color (U) Light-Yellow Normal Yellow [facility] Comment on above: Order Comment: Name Collection Type:: Clean-Voided Midstream Performed By: #### C OVID19 FLU RSV, CEPHEID NEG #### [place] [address] [place] Glucose Ql (U) 300 mg/dL High Normal [facility] Comment on above: Order Comment: Name Collection Type:: Clean-Voided Midstream Performed By: #### C OVID19 FLU RSV, CEPHEID NEG #### [place] [address] [place] Hyaline Casts,Urine None Normal 0-8 [facility] Comment on above: Order Comment: Name Collection Type:: Clean-Voided Midstream Result Comment: PERF ORMED BY: [place] [address] PATHOLOGIST ORDINARY SEAMAN DUC QUIGLEY M.D. Performed By: #### C OVID19 FLU RSV, CEPHEID NEG #### [address] Ketones Ql (U) Negative Normal Negative [facility] Comment on above: Order Comment: Name Collection Type:: Clean-Voided Midstream Performed By: #### C OVID19 FLU RSV, CEPHEID NEG #### [address] Leukocyte esterase Test strip Ql (U) Negative Normal Negative [facility] Comment on above: Order Comment: Name Collection Type:: Clean-Voided Midstream Performed By: #### C OVID19 FLU RSV, CEPHEID NEG #### [place] [address] [place] Nitrite,Urine Negative Normal Negative [facility] Comment on above: Order Comment: Name Collection Type:: Clean-Voided Midstream Performed By: #### C OVID19 FLU RSV, CEPHEID NEG #### [address] Occult Blood,Urine Negative Normal Negative [facility] Comment on above: Order Comment: Name Collection Type:: Clean-Voided Midstream Result Comment: PERF ORMED BY: [place] [address] PATHOLOGIST ORDINARY SEAMAN DUC QUIGLEY M.D. Performed By: #### C OVID19 FLU RSV, CEPHEID NEG #### [address] pH (U) 6.0 [pH] Normal 5.0-9.0 [facility] Comment on above: Order Comment: Name Collection Type:: Clean-Voided Midstream Performed By: #### C OVID19 FLU RSV, CEPHEID NEG #### [address] Protein (U) [Mass/Vol] 30 mg/dL High Negative [facility] Comment on above: Order Comment: Name Collection Type:: Clean-Voided Midstream Performed By: #### C OVID19 FLU RSV, CEPHEID NEG #### [address] RBC,Urine None Seen Normal 0-4 [facility] Comment on above: Order Comment: Name Collection Type:: Clean-Voided Midstream Performed By: #### C OVID19 FLU RSV, CEPHEID NEG #### [address] Specificy [place],Urine 1.028 Normal 1.001-1.030 [facility] Comment on above: Order Comment: Name Collection Type:: Clean-Voided Midstream Performed By: #### C OVID19 FLU RSV, CEPHEID NEG #### [address] Squamous Epithelial Cell,Urine 1 [HPF] Normal 0-2 [facility] Comment on above: Order Comment: Name Collection Type:: Clean-Voided Midstream Performed By: #### C OVID19 FLU RSV, CEPHEID NEG #### [address] Urobilinogen,Urine Normal Normal Normal [facility] Comment on above: Order Comment: Name Collection Type:: Clean-Voided Midstream Performed By: #### C OVID19 FLU RSV, CEPHEID NEG #### [address] WBC,Urine 1 [HPF] Normal 0-4 [facility] Comment on above: Order Comment: Name Collection Type:: Clean-Voided Midstream Performed By: #### C OVID19 FLU RSV, CEPHEID NEG #### [address] ECG 12 lead ECGon 10-01-2024 ECG 12 lead ECG [facility] [place] [address] [place] [address] Electrocardiograph Report Signed Patient: Stephanie Zayas MR#: [id number] : 1990 Acct:[id number] Age/Sex: 34 / F ADM Date: 10/01/24 Loc: Room: [address] [place] [address] Type: ADM IN Attending Dr: Brayan Calderón MD Ordering Provider: Alec Antoine DO Date of Service: 10/01/2411/12/1637 ECG/ECG 12 lead ECG: clinically indicated Copies to: Test Reason : Blood Pressure : 180/103 mmHG Vent. Rate : 134 BPM Atrial Rate : 134 BPM P-R Int : 132 ms QRS Dur : 90 ms QT Int : 300 ms P-R-T Axes : 77 -61 76 degrees QTcB Int : 448 ms Sinus tachycardia Left anterior fascicular block Septal infarct , age undetermined Abnormal ECG When compared with ECG of 01-Oct-2024 11:45, Left anterior fascicular block is now present Septal infarct is now present Confirmed by LILIANA WEBBER DO ([id number]) on 10/02/2024 2:01:30 AM Referred By: Electronically Signed By: LILIANA WEBBER DO Transcribed By: MUS Signed By Liliana Webber DO 0201 Normal [facility] ECG 12 lead ECG [facility] [place] [address] [place] [address] Electrocardiograph Report Signed Patient: Stephanie Zayas MR#: [id number] : 1990 Acct:[id number] Age/Sex: 34 / F ADM Date: 10/01/24 Loc: ER Room: Type: [facility] ER Attending Dr: Ordering Provider: Alec Antoine DO Date of Service: 10/01/2411/12/1155 ECG/ECG 12 lead ECG: Shortness of Breath/Dyspnea Copies to: Test Reason : Blood Pressure : 185/97 mmHG Vent. Rate : 96 BPM Atrial Rate : 96 BPM P-R Int : 154 ms QRS Dur : 94 ms QT Int : 390 ms P-R-T Axes : 72 -7 56 degrees QTcB Int : 492 ms Normal sinus rhythm Incomplete right bundle branch block Prolonged QT Confirmed by Alec ANTOINE DO ([id number]) on 10/01/2024 2:09:05 PM Referred By: Electronically Signed By: Alec ANTOINE DO Transcribed By: MUS Signed By Alec Antoine DO 1 12/01/23 1409 Normal [facility] Eosinophils Auto (Bld) [#/Vo l]Ordered By: Alec Antoine on 10-01-2024 Eosinophils (Bld) [#/Vol] Automated eosinophil count High 0.0-0.45 [facility] Eosinophils/100 WBC Auto (Bl d)Ordered By: Alec Antoine on 10-01-2024 Eosinophils/100 WBC (Bld) Automated eosinophil % . [facility] Epithelial cells.squamous [# /area] in Urine sediment by Automated countOrdered By: Alec Antoine on 10-01-2024 Epithelial cells.squamous Auto (Urine sed) [#/Area] Epithelial cells.squamous [#/area] in Urine sediment by Automated count 0-2 [facility] Erythrocyte distribution wid th Auto (RBC) [Ratio]Ordered By: Alec Antoine on 10-01-2024 Erythrocyte distribution width (RBC) [Ratio] Erythrocyte distribution width [Ratio] by Automated count 11.9-15.3 [facility] Erythrocytes [#/area] in Uri ne sediment by Automated countOrdered By: Alec Antoine on 10-01-2024 RBC Auto (Urine sed) [#/Area] Erythrocytes [#/area] in Urine sediment by Automated count 0-4 [facility] Globulin Calc (S) [Mass/Vol] Ordered By: Alec Antoine on 10-01-2024 Globulin (S) [Mass/Vol] Serum globulin measurement by calculation (mass/volume) [facility] Glucose Poct Glucometerson 1 12-01-2023 Glucose [Mass/Vol] 224 mg/dL Normal [facility] Comment on above: Result Comment: [facility] Glucose Reference Range is dependent on time and content of last meal. Glucose of more than 200 mg/dL in a nonstressed, ambulatory subject supports the diagnosis of Diabetes Mellitus. PERFORMED BY: [address] [place] [id number] PATHOLOGIST ORDINARY SEAMAN DUC QUIGLEY M.D. Performed By: #### G LULS #### Point of Care testing , Glucose [Mass/Vol] 199 mg/dL Normal [facility] Comment on above: Result Comment: [facility] Glucose Reference Range is dependent on time and content of last meal. Glucose of more than 200 mg/dL in a nonstressed, ambulatory subject supports the diagnosis of Diabetes Mellitus. PERFORMED BY: [address] [address] PATHOLOGIST ORDINARY SEAMAN DUC QUIGLEY M.D. Performed By: #### M G, CMP #### [facility] [address] Glucose [Mass/volume] in Ser um or PlasmaOrdered By: Alec Antoine on 10-01-2024 Glucose [Mass/Vol] Glucose [Mass/volume ] in Serum or Plasma High 70-100 [facility] Comment on above: ADA recommended refe rence rangeRandom Glucose Reference Range is dependent on time and content of last meal. Glucose of more than 200 mg/dL in a nonstressed, ambulatory subject supports the diagnosis of Diabetes Mellitus. Glucose [Mass/volume] in Uri ne by Test stripOrdered By: Alec Antoine on 10-01-2024 Glucose Test strip (U) [Mass/Vol] Glucose [Mass/volume] in Urine by Test strip High Normal [facility] Hematocrit Auto (Bld) [Volum e fraction]Ordered By: Alec Antoine on 10-01-2024 Hematocrit (Bld) [Volume fraction] Hematocrit [Volume Fraction] of Blood by Automated count 34.0-46.4 [facility] Hemoglobin Test strip Ql (U) Ordered By: Alec Antoine on 10-01-2024 Hemoglobin Ql (U) Hemoglobin [Presence ] in Urine by Test strip Negative [facility] Hemoglobin [Mass/volume] in BloodOrdered By: Alec Antoine on 10-01-2024 Hemoglobin (Bld) [Mass/Vol] Hemoglobin [Mass/volume] in Blood 11.8-15.4 [facility] Hyaline casts [#/area] in Ur ine sediment by Automated countOrdered By: Alec Antoine on 10-01-2024 Hyaline casts Auto (Urine sed) [#/Area] Hyaline casts [#/area] in Urine sediment by Automated count 0-8 [facility] INR in Platelet poor plasma by Coagulation assayOrdered By: Alec Antoine on 10-01-2024 INR Coag (PPP) [Relative time] INR in Platelet poor plasma by Coagulation assay [facility] Comment on above: INR Therapeutic Rang e A) Pre- and Peroperative OAT started two weeks before surgery. NOT HIP SURGERY: 1.5 - 2.5 HIP SURGERY: 2 - 3B) Primary and secondary prevention of venous THROMBOSIS: 2 - 3C) Active venous thrombosis, pulmonary embolismand prevention of recurrent venous thrombosis: 2 - 3D) Prevention of arterial thromboembolismincluding patients with mechanical heart valves: 3 - 4.5 Ketones Test strip Ql (U)Ord ered By: Alec Antoine on 10-01-2024 Ketones Ql (U) Ketones [Presence] i n Urine by Test strip Negative [facility] Lactate [Moles/volume] in Se rum or PlasmaOrdered By: Alec Antoine on 10-01-2024 Lactate [Moles/Vol] Lactate [Moles/volum e] in Serum or Plasma Critically high 0.5-2.2 [facility] Comment on above: Critical Result : Ca lled to and read back by: ADRIEL CHOI at: 10/01/2024 18:22:45 by:LFM Lactate [Moles/Vol] Lactate [Moles/volum e] in Serum or Plasma Critically high 0.5-2.2 [facility] Comment on above: Critical Result : Ca lled to and read back by: AMRIK LEWIS at: 10/01/2024 14:05:17 by:SHERRY Lactic Acidon 10-01-2024 Lactate [Moles/Vol] 2.0 mmol/L Off scale high 0.5-2.2 [facility] Comment on above: Result Comment: Crit ical Result : Called to and read back by: AMRIK LEWIS at: 10/01/2024 14:05:17 by:SHERRY PERFORMED BY: [place] [address] PATHOLOGIST ORDINARY SEAMAN DUC QUIGLEY M.D. Performed By: #### M G, CMP #### [address] Lactic Acid Reflexon 024 Lactic Acid Reflex 2.1 mmol/L Off scale high 0.5-2.2 [facility] Comment on above: Result Comment: Crit ical Result : Called to and read back by: ADRIEL CHOI at: 10/01/2024 18:22:45 by:LFM PERFORMED BY: [address] [place] [address] PATHOLOGIST ORDINARY SEAMAN DUC QUIGLEY M.D. Performed By: #### M G, CMP #### [address] Leukocyte esterase [Presence ] in Urine by Test stripOrdered By: Alec Antoine on 10-01-2024 Leukocyte esterase Test strip Ql (U) Leukocyte esterase [Presence] in Urine by Test strip Negative [facility] Leukocytes [#/area] in Urine sediment by Automated countOrdered By: Alec Antoine on 10-01-2024 WBC Auto (Urine sed) [#/Area] Leukocytes [#/area] in Urine sediment by Automated count 0-4 [facility] Leukocytes [#/volume] correc david for nucleated erythrocytes in Blood by Automated counOrdered By: Alec Antoine on 10-01-2024 WBC corrected for nucl RBC Auto (Bld) [#/Vol] Leukocytes [#/volume] corrected for nucleated erythrocytes in Blood by Automated coun High 3.8-11.6 [facility] Lymphocytes Auto (Bld) [#/Vo l]Ordered By: Alec Antoine on 10-01-2024 Lymphocytes (Bld) [#/Vol] Lymphocytes [#/volume] in Blood by Automated count 1.00-4.8 [facility] Lymphocytes/100 WBC Auto (Bl d)Ordered By: Alec Antoine on 10-01-2024 Lymphocytes/100 WBC (Bld) Lymphocytes/100 leukocytes in Blood by Automated count . [facility] MCH Auto (RBC) [Entitic mass ]Ordered By: Alec Antoine on 10-01-2024 MCH (RBC) [Entitic mass] MCH [Entitic mass] by Automated count 24.7-34.3 [facility] MCHC Auto (RBC) [Mass/Vol]Or dered By: Alec Antoine on 10-01-2024 MCHC (RBC) [Mass/Vol] MCHC [Mass/volume] by Automated count High 32.0-35.0 [facility] MCV Auto (RBC) [Entitic vol] Ordered By: Alec Antoine on 10-01-2024 MCV (RBC) [Entitic vol] MCV [Entitic volume] by Automated count 80-100 [facility] Magnesiumon 10-01-2024 Magnesium [Mass/Vol] 1.7 mg/dL Low 1.9-2.7 [facility] Comment on above: Result Comment: PERF ORMED BY: [place] [address] PATHOLOGIST ORDINARY SEAMAN DUC QUIGLEY M.D. Performed By: #### M G, CMP #### [address] Magnesium [Mass/volume] in S zully or PlasmaOrdered By: Alec Antoine on 10-01-2024 Magnesium [Mass/Vol] Magnesium [Mass/vol ume] in Serum or Plasma Low 1.9-2.7 [facility] Monocyte distribution width [Entitic volume] in Blood by AutomatedOrdered By: Alec Antoine on 10-01-2024 Monocyte distribution width Auto (Bld) [Entitic vol] Monocyte distribution width [Entitic volume] in Blood by Automated 0.00-20.00 [facility] Monocytes Auto (Bld) [#/Vol] Ordered By: Alec Antoine on 10-01-2024 Monocytes (Bld) [#/Vol] Automated blood monocyte count High 0.0-0.8 [facility] Monocytes/100 WBC Auto (Bld) Ordered By: Alec Antoine on 10-01-2024 Monocytes/100 WBC (Bld) Automated monocyte % . [facility] Natriuretic peptide B [Mass/ Vol]Ordered By: Alec Antoine on 10-01-2024 Natriuretic peptide B (Bld) [Mass/Vol] BNP ser/plas 5-100 [facility] Neutrophils Auto (Bld) [#/Vo l]Ordered By: Alec Antoine on 10-01-2024 Neutrophils (Bld) [#/Vol] Neutrophils [#/volume] in Blood by Automated count High 1.8-7.7 [facility] Neutrophils/100 WBC Auto (Bl d)Ordered By: Alec Antoine on 10-01-2024 Neutrophils/100 WBC (Bld) Automated neutrophil % . [facility] Nitrite Test strip Ql (U)Ord ered By: Alec Antoine on 10-01-2024 Nitrite Ql (U) Nitrite [Presence] i n Urine by Test strip Negative [facility] No Panel InformationOrdered By: Alec Antoine on 10-01-2024 Estimated GFR (CKD-EPI) > 60.0 mL/Min [facility] Creatinine Clearance (Chem 176.33 [facility] Nucleated erythrocytes [Pres ence] in Blood by Automated countOrdered By: Alec Antoine on 10-01-2024 Nucleated RBC Auto Ql (Bld) Nucleated erythrocytes [Presence] in Blood by Automated count 0-0.5 [facility] Partial Thromboplastin Timeo n 10-01-2024 aPTT Coag (Bld) [Time] 33.7 s Normal 25.1-36.5 [facility] Comment on above: Result Comment: A he matocrit value greater than 55% may lead to inaccurate results in coagulation testing. Patients having hematocrit values >55% require a special collection tube for coagulation studies. Please contact the laboratory at [phone] for redraw instructions. PERFORMED BY: [place] [address] PATHOLOGIST ORDINARY SEAMAN DUC QUIGLEY M.D. Performed By: #### C OVID19 FLU RSV, CEPHEID NEG #### [address] Platelet mean volume Auto (B ld) [Entitic vol]Ordered By: Alec Antoine on 10-01-2024 Platelet mean volume (Bld) [Entitic vol] Platelet mean volume [Entitic volume] in Blood by Automated count Low 6.3-10.7 [facility] Platelets Auto (Bld) [#/Vol] Ordered By: Alec Antoine on 10-01-2024 Platelets (Bld) [#/Vol] Platelets [#/volume] in Blood by Automated count 150-450 [facility] Potassium [Moles/volume] in Serum or PlasmaOrdered By: Alec Antoine on 10-01-2024 Potassium [Moles/Vol] Potassium [Moles/v olume] in Serum or Plasma 3.5-5.1 [facility] Protein Test strip (U) [Mass /Vol]Ordered By: Alec Antoine on 10-01-2024 Protein (U) [Mass/Vol] Protein [Mass/vol ume] in Urine by Test strip High Negative [facility] Protein [Mass/volume] in Ser um or PlasmaOrdered By: Alec Antoine on 10-01-2024 Protein [Mass/Vol] Protein [Mass/volume ] in Serum or Plasma 6.4-8.9 [facility] Prothrombin Time INRon 10-01 INR Coag (PPP) [Relative time] 1.0 {INR} Normal [facility] Comment on above: Result Comment: INR Therapeutic Range A) Pre- and Peroperative OAT started two weeks before surgery. NOT HIP SURGERY: 1.5 - 2.5 HIP SURGERY: 2 - 3 B) Primary and secondary prevention of venous THROMBOSIS: 2 - 3 C) Active venous thrombosis, pulmonary embolism and prevention of recurrent venous thrombosis: 2 - 3 D) Prevention of arterial thromboembolism including patients with mechanical heart valves: 3 - 4.5 Performed By: #### C OVID19 FLU RSV, CEPHEID NEG #### [facility] [address] PT Coag (PPP) [Time] 11.8 s Normal 9.0-12.9 [facility] Comment on above: Result Comment: A he matocrit value greater than 55% may lead to inaccurate results in coagulation testing. Patients having hematocrit values >55% require a special collection tube for coagulation studies. Please contact the laboratory at [phone] for redraw instructions. Performed By: #### C OVID19 FLU RSV, CEPHEID NEG #### [facility] [address] [place] [id number] [facility] Prothrombin time (PT)Ordered By: Alec Antoine on 10-01-2024 PT Coag (PPP) [Time] Prothrombin time (PT) 9.0- 12.9 [facility] Comment on above: A hematocrit value g reater than 55% may lead to inaccurate results in coagulation testing. Patients having hematocrit values >55% require a special collection tube for coagulation studies. Please contact the laboratory at [phone] for redraw instructions. RBC Auto (Bld) [#/Vol]Ordere d By: Alec Antoine on 10-01-2024 RBC (Bld) [#/Vol] Erythrocytes [#/volu me] in Blood by Automated count 3.60-5.00 [facility] Respiratory specimen influen za A virus, influenza B virus, respiratory syncytical virOrdered By: Alec Antoine on 10-01-2024 SARS-CoV-2 (COVID-19) RNA STEPHAN+probe Ql (Unsp spec) Respiratory specimen influenza A virus, influenza B virus, respiratory syncytical vir [facility] Serum or plasma albumin/glob ulin mass ratioOrdered By: Alec Antoine on 10-01-2024 Albumin/Globulin [Mass ratio] Serum or plasma albumin/globulin mass ratio [facility] Serum or plasma anion gap de terminationOrdered By: Alec Antoine on 10-01-2024 Anion gap [Moles/Vol] Serum or plasma an ion gap determination 6.0-15.0 [facility] Sodium [Moles/volume] in Ser um or PlasmaOrdered By: Alec Antoine on 10-01-2024 Sodium [Moles/Vol] Sodium [Moles/volume ] in Serum or Plasma Low 136-145 [facility] Specific gravity Test strip (U) [Rel density]Ordered By: Alec Antoine on 10-01-2024 Specific gravity (U) [Rel density] Specific gravity of Urine by Test strip 1.001-1.030 [facility] Troponin I High Sensitivityo n 10-01-2024 Troponin I High Sensitivity 2.9 pg/mL Normal 0.0-15.0 [facility] Comment on above: Result Comment: PERF ORMED BY: [place] [address] PATHOLOGIST ORDINARY SEAMAN DUC QUIGLEY M.D. Performed By: #### B CONVERTIBLE TOP INSTALLER, PTT, PT, CBC, HS TROP, CK #### [facility] [address] Troponin I.cardiac [Mass/vol ume] in Serum or Plasma by Detection limit <= 0.01 ng/Ordered By: Alec Antoine on 10-01-2024 Troponin I.cardiac DL <= 0.01 ng/mL [Mass/Vol] Troponin I.cardiac [Mass/volume] in Serum or Plasma by Detection limit <= 0.01 ng/ 0.0-15.0 [facility] Urea nitrogen [Mass/volume] in Serum or PlasmaOrdered By: Alec Antoine on 10-01-2024 Urea nitrogen [Mass/Vol] Urea nitrogen [Mass/volume] in Serum or Plasma 06-13 [facility] Urobilinogen Test strip (U) [Mass/Vol]Ordered By: Alec Antoine on 10-01-2024 Urobilinogen (U) [Mass/Vol] Urobilinogen [Mass/volume] in Urine by Test strip Normal [facility] WBC Auto (Bld) [#/Vol]Ordere d By: Alec Antoine on 10-01-2024 WBC (Bld) [#/Vol] Leukocytes [#/volume ] in Blood by Automated count High 3.8-11.6 [facility] X-ray reportOrdered By: Zoya Busby on 10-01-2024 Study report [facility] [place] [address] XRay Report Signed Patient: Stephanie Zayas MR#: [id number] : 1990 Acct:[id number] Age/Sex: 34 / F ADM Date: 4 Loc: ER Room: Type: [facility] ER Attending Dr: Copies to: Alec Antoine DO~ Ordering Provider: Alec Antoine DO Date of Service: 10/01/24 XR/XR chest 2V*: Shortness of Breath/Dyspnea XR chest 2V* 10/01/2024 11:55 AM SIGNS AND SYMPTOMS: Cough, shortness of breath PROTOCOL: Frontal and lateral radiograph of the chest COMPARISON: None FINDINGS: The trachea is midline. The heart and mediastinal structures are within normal limits. The lung parenchyma is clear. The bony thorax is intact. XR/XR chest 2V* IMPRESSION: No acute cardiopulmonary pathology. Impression dictated by: Zoya Busby M.D.10/01/2024 12:50 PM Dictation Location: [place] [address] Transcribed By: [facility] 10/01/24 1250 Dictated By: Zoya Busby II, MD 10/01/24 1250 Signed By: 10/01/[address] [facility] Work Phone: XR chest 2V*on 10-01-2024 XR chest 2V* [facility] [place] [address] [place] [address] XRay Report Signed Patient: Stephanie Zayas MR#: [id number] : 1990 Acct:[id number] Age/Sex: 34 / F ADM Date: 10/01/24 Loc: ER Room: Type: [facility] ER Attending Dr: Copies to: Alec Antoine DO Ordering Provider: Alec Antoine DO Date of Service: 10/01/24 XR/XR chest 2V*: Shortness of Breath/Dyspnea XR chest 2V* 10/01/2024 11:55 AM SIGNS AND SYMPTOMS: Cough, shortness of breath PROTOCOL: Frontal and lateral radiograph of the chest COMPARISON: None FINDINGS: The trachea is midline. The heart and mediastinal structures are within normal limits. The lung parenchyma is clear. The bony thorax is intact. XR/XR chest 2V* IMPRESSION: No acute cardiopulmonary pathology. Impression dictated by: Zoya Busby M.D.10/01/2024 12:50 PM Dictation Location: [place] [address] Transcribed By: [facility] 10/01/24 1250 Dictated By: Zoya Busby II, MD 10/01/24 1250 Signed By: 10/01/24 1250 Normal [facility] aPTT in Platelet poor plasma by Coagulation assayOrdered By: Alec Antoine on 10-01-2024 aPTT Coag (PPP) [Time] Activated partial thromboplastin time (aPTT) in platelet poor plasma by coagulation a 25.1-36.5 [facility] Comment on above: A hematocrit value g reater than 55% may lead to inaccurate results in coagulation testing. Patients having hematocrit values >55% require a special collection tube for coagulation studies. Please contact the laboratory at [phone] for redraw instructions. pH Test strip (U)Ordered By: Alec Antoine on 10-01-2024 pH (U) pH of Urine by Test strip 5.0-9.0 [facility] Alanine aminotransferase [En zymatic activity/volume] in Serum or PlasmaOrdered By: Vignesh Vogel on 09-03-2024 ALT [Catalytic activity/Vol] 77 U/L High [facility] Comment on above: Order Comment: Reaso n for Exam Routine lab draw Performed By: #### M Musa, CMP #### [facility] [address] [place] [address] ALT [Catalytic activity/Vol] Alanine aminotransferase [Enzymatic activity/volume] in Serum or Plasma High [facility] Albumin [Mass/volume] in Ser um or Plasma by Bromocresol green (BCG) dye binding methoOrdered By: Vignesh Vogel on 09-03-2024 Albumin BCG dye [Mass/Vol] 4.6 g/dL 3.5-5.7 [facility] Albumin BCG dye [Mass/Vol] Albumin [Mass/volume] in Serum or Plasma by Bromocresol green (BCG) dye binding metho 3.5-5.7 [facility] Alkaline phosphatase [Enzyma tic activity/volume] in Serum or PlasmaOrdered By: Vignesh Vogel on 09-03-2024 ALP [Catalytic activity/Vol] 92 U/L Normal 34-104 [facility] Comment on above: Order Comment: Reaso n for Exam Routine lab draw Performed By: #### M Musa, CMP #### [facility] [address] [place] [address] ALP [Catalytic activity/Vol] Alkaline phosphatase [Enzymatic activity/volume] in Serum or Plasma 34-104 [facility] Aspartate aminotransferase [ Enzymatic activity/volume] in Serum or PlasmaOrdered By: Vignesh Vogel on 09-03-2024 AST [Catalytic activity/Vol] 49 U/L [facility] [address] Comment on above: Order Comment: Reaso n for Exam Routine lab draw Performed By: #### M Musa, CMP #### [facility] [address] [place], [place] [id number] [place] AST [Catalytic activity/Vol] Aspartate aminotransferase [Enzymatic activity/volume] in Serum or Plasma High [address] Automated basophil %Ordered By: Vignesh Vogel on 09-03-2024 Basophils/100 WBC (Bld) 0.5 % Normal . [facility] Comment on above: Order Comment: Reaso n for Exam Routine lab draw Performed By: #### M G, CMP #### [address] Automated basophil countOrde red By: Vignesh Vogel on 09-03-2024 Basophils (Bld) [#/Vol] 0.1 10*3/uL Normal 0.0-0.2 [facility] Comment on above: Order Comment: Reaso n for Exam Routine lab draw Result Comment: PERF ORMED BY: [place] [address] PATHOLOGIST ORDINARY SEAMAN DUC QUIGLEY M.D. Performed By: #### M G, CMP #### [address] Automated blood monocyte cou ntOrdered By: Vignesh Vogel on 09-03-2024 Monocytes (Bld) [#/Vol] 1.0 10*3/uL High 0.0-0.8 [facility] Comment on above: Order Comment: Reaso n for Exam Routine lab draw Performed By: #### M G, CMP #### [address] Automated eosinophil %Ordere d By: Vignesh Vgoel on 09-03-2024 Eosinophils/100 WBC (Bld) 1.2 % Normal . [facility] Comment on above: Order Comment: Reaso n for Exam Routine lab draw Performed By: #### M G, CMP #### [address] Automated eosinophil countOr dered By: Vignesh Vogel on 09-03-2024 Eosinophils (Bld) [#/Vol] 0.2 10*3/uL Normal 0.0-0.45 [facility] Comment on above: Order Comment: Reaso n for Exam Routine lab draw Performed By: #### M G, CMP #### [address] Automated monocyte %Ordered By: Vignesh Vogel on 09-03-2024 Monocytes/100 WBC (Bld) 7.0 % Normal . [facility] Comment on above: Order Comment: Reaso n for Exam Routine lab draw Performed By: #### M G, CMP #### [facility] [address] Automated neutrophil %Ordere d By: Vignesh Vogel on 09-03-2024 Neutrophils/100 WBC (Bld) 71.4 % Normal . [facility] Comment on above: Order Comment: Reaso n for Exam Routine lab draw Performed By: #### M G, CMP #### [facility] [address] [place] [address] [place] Basophils Auto (Bld) [#/Vol] Ordered By: Vignesh Vogel on 09-03-2024 Basophils (Bld) [#/Vol] Automated basophil count 0.0-0.2 [facility] Basophils/100 WBC Auto (Bld) Ordered By: Vignesh Vogel on 09-03-2024 Basophils/100 WBC (Bld) Automated basophil % . [facility] Bilirubin.total [Mass/volume ] in Serum or PlasmaOrdered By: Vignesh Vogel on 09-03-2024 Bilirubin [Mass/Vol] 0.8 mg/dL Normal 0.3-1.0 [facility] Comment on above: Order Comment: Reaso n for Exam Routine lab draw Performed By: #### M Musa, CMP #### [address] Bilirubin [Mass/Vol] Bilirubin.total [Mass/volume] in Serum or Plasma 0.3-1.0 [facility] Calcium [Mass/volume] in Ser um or PlasmaOrdered By: Vignesh Vogel on 09-03-2024 Calcium [Mass/Vol] 9.4 mg/dL Normal 8.6-10.3 [facility] Comment on above: Order Comment: Reaso n for Exam Routine lab draw Performed By: #### M G, CMP #### [place] [id number] [facility] Calcium [Mass/Vol] Calcium [Mass/volume ] in Serum or Plasma 8.6-10.3 [facility] Carbon dioxide, total [Moles /volume] in Serum or PlasmaOrdered By: Vignesh Vogel on 09-03-2024 CO2 [Moles/Vol] 23.8 mmol/L Normal 21.0-31.0 [facility] Comment on above: Order Comment: Reaso n for Exam Routine lab draw Performed By: #### M Musa, CMP #### [facility] [address] [place] [address] [place] CO2 [Moles/Vol] Carbon dioxide, tota l [Moles/volume] in Serum or Plasma 21.0-31.0 [facility] Chloride [Moles/volume] in S zully or PlasmaOrdered By: Vignesh Vogel on 09-03-2024 Chloride [Moles/Vol] 100 mmol/L Normal 98-107 [facility] Comment on above: Order Comment: Reaso n for Exam Routine lab draw Performed By: #### Yaakov Vigil, CMP #### [facility] [address] [place] [id number] [place] Chloride [Moles/Vol] Chloride [Moles/vol ume] in Serum or Plasma 98-107 [facility] Cholesterol [Mass/volume] in Serum or PlasmaOrdered By: Vignesh Vogel on 09-03-2024 Cholesterol [Mass/Vol] 196 mg/dL Normal 140-200 [facility] Comment on above: Chol less than 200 m g/dl low riskChol 201-239 mg/dl borderline riskChol 240 mg/dl and greater high risk Order Comment: Reaso n for Exam Routine lab draw Result Comment: Chol less than 200 mg/dl low risk Chol 201-239 mg/dl borderline risk Chol 240 mg/dl and greater high risk Performed By: #### M Musa, CMP #### [facility] [address] [place] [address] [place] Cholesterol [Mass/Vol] Cholesterol [Mass /volume] in Serum or Plasma 140-200 [facility] Comment on above: Chol less than 200 m g/dl low riskChol 201-239 mg/dl borderline riskChol 240 mg/dl and greater high risk Cholesterol in HDL [Mass/vol ume] in Serum or PlasmaOrdered By: Vignesh Vogel on 09-03-2024 Cholesterol in HDL [Mass/Vol] Serum or plasma high density lipoprotein (HDL) cholesterol measurement 23-92 [facility] Comment on above: HDL CHOL ATP-III CLA SSIFICATION Cardiovascular RiskHDL > or equal to 60 mg/dL LOWHDL < 40 mg/dL HIGH Cholesterol in LDL Calc [Mas s/Vol]Ordered By: Vignesh Vogel on 09-03-2024 Cholesterol in LDL [Mass/Vol] TNP [facility] Comment on above: Test not performed Cholesterol in LDL [Mass/Vol] Cholesterol in LDL [Mass/volume] in Serum or Plasma by calculation [facility] Comment on above: Test not performed Cholesterol in LDL [Mass/vol ume] in Serum or PlasmaOrdered By: Vignesh Vogel on 09-03-2024 Cholesterol in LDL [Mass/Vol] 112 mg/dL High 0-100 [facility] Comment on above: LDL ATP III CLASSIFI CATIONLDL less than 100 mg/dL OptimalLDL 100-129 mg/dL Near or above optimalLDL 130-159 mg/dL Borderline highLDL 160-189 mg/dL HighLDL greater than 189 mg/dL Very high Cholesterol in LDL [Mass/Vol] Cholesterol in LDL [Mass/volume] in Serum or Plasma High 0-100 [facility] Comment on above: LDL ATP III CLASSIFI CATIONLDL less than 100 mg/dL OptimalLDL 100-129 mg/dL Near or above optimalLDL 130-159 mg/dL Borderline highLDL 160-189 mg/dL HighLDL greater than 189 mg/dL Very high Cholesterol in VLDL Calc [Ma ss/Vol]Ordered By: Vignesh Vogel on 09-03-2024 Cholesterol in VLDL [Mass/Vol] 90 mg/dL [facility] Cholesterol in VLDL [Mass/Vol] Cholesterol in VLDL [Mass/volume] in Serum or Plasma by calculation [facility] Complete Blood Count Auto Di ffon 09-03-2024 Mean Corpuscular HGB Conc 35.0 g/dL Normal 32.0-35.0 [facility] Comment on above: Order Comment: Reaso n for Exam Routine lab draw Performed By: #### M G, CMP #### [address] NRBC% 0.0 /100{WBC} Normal 0-0.5 [facility] Comment on above: Order Comment: Reaso n for Exam Routine lab draw Performed By: #### M G, CMP #### [facility] [address] [place] [id number] [place] Comprehensive Metabolic Pane reece 09-03-2024 Albumin [Mass/Vol] 4.6 g/dL Normal 3.5-5.7 [facility] Comment on above: Order Comment: Reaso n for Exam Routine lab draw Performed By: #### M G, CMP #### [facility] [address] [place] [id number] [place] GFR/1.73 sq M.predicted MDRD (S/P/Bld) [Vol rate/Area] mL/min/{1.73_m2} Normal [facility] Comment on above: Order Comment: Reaso n for Exam Routine lab draw Performed By: #### M G, CMP #### [facility] [address] [place] [address] [place] Creatinine [Mass/volume] in Serum or PlasmaOrdered By: Vignesh Vogel on 09-03-2024 Creatinine [Mass/Vol] 0.61 mg/dL Normal 0.60-1.20 [facility] Comment on above: Order Comment: Reaso n for Exam Routine lab draw Performed By: #### M G, CMP #### [facility] [address] [place], [place] [phone] [place] Creatinine [Mass/Vol] Creatinine [Mass/v olume] in Serum or Plasma 0.60-1.20 [facility] Eosinophils Auto (Bld) [#/Vo l]Ordered By: Vignesh Vogel on 09-03-2024 Eosinophils (Bld) [#/Vol] Automated eosinophil count 0.0-0.45 [facility] Eosinophils/100 WBC Auto (Bl d)Ordered By: Vignesh Vogel on 09-03-2024 Eosinophils/100 WBC (Bld) Automated eosinophil % . [facility] Erythrocyte distribution wid th Auto (RBC) [Ratio]Ordered By: Vignesh Vogel on 09-03-2024 Erythrocyte distribution width (RBC) [Ratio] Erythrocyte distribution width [Ratio] by Automated count 11.9-15.3 [facility] Erythrocyte distribution wid th [Ratio] by Automated countOrdered By: Vignesh Vogel on 09-03-2024 Erythrocyte distribution width (RBC) [Ratio] 12.4 % Normal 11.9-15.3 [facility] Comment on above: Order Comment: Farraho n for Exam Routine lab draw Performed By: #### M Musa, CMP #### [address] Erythrocytes [#/volume] in B lood by Automated countOrdered By: Vignesh Vogel on 09-03-2024 RBC (Bld) [#/Vol] 4.81 10*6/uL Normal 3.60-5.00 [facility] Comment on above: Order Comment: Reaso n for Exam Routine lab draw Performed By: #### M Musa, CMP #### [address] Globulin Calc (S) [Mass/Vol] Ordered By: Vignesh Vogel on 09-03-2024 Globulin (S) [Mass/Vol] Serum globulin measurement by calculation (mass/volume) [facility] Glucose [Mass/volume] in Ser um or PlasmaOrdered By: Vignesh Vogel on 09-03-2024 Glucose [Mass/Vol] 195 mg/dL High 70-100 [facility] Comment on above: ADA recommended refe rence rangeRandom Glucose Reference Range is dependent on time and content of last meal. Glucose of more than 200 mg/dL in a nonstressed, ambulatory subject supports the diagnosis of Diabetes Mellitus. Order Comment: Reaso n for Exam Routine lab draw Result Comment: [place] Glucose Reference Range is dependent on time and content of last meal. Glucose of more than 200 mg/dL in a nonstressed, ambulatory subject supports the diagnosis of Diabetes Mellitus. ADA recommended reference range Performed By: #### M Musa, CMP #### [address] Glucose [Mass/Vol] Glucose [Mass/volume ] in Serum or Plasma High 70-100 [facility] Comment on above: ADA recommended refe rence rangeRandom Glucose Reference Range is dependent on time and content of last meal. Glucose of more than 200 mg/dL in a nonstressed, ambulatory subject supports the diagnosis of Diabetes Mellitus. Hematocrit Auto (Bld) [Volum e fraction]Ordered By: Vignesh Vogel on 09-03-2024 Hematocrit (Bld) [Volume fraction] Hematocrit [Volume Fraction] of Blood by Automated count 34.0-46.4 [facility] Hematocrit [Volume Fraction] of Blood by Automated countOrdered By: Vignesh Vogel on 09-03-2024 Hematocrit (Bld) [Volume fraction] 41.2 % Normal 34.0-46.4 [facility] Comment on above: Order Comment: Reaso n for Exam Routine lab draw Performed By: #### Yaakov Vigil, CMP #### [facility] [address] [place] [address] [place] Hemoglobin [Mass/volume] in BloodOrdered By: Vignesh Vogel on 09-03-2024 Hemoglobin (Bld) [Mass/Vol] 14.4 g/dL Normal 11.8-15.4 [facility] Comment on above: Order Comment: Reaso n for Exam Routine lab draw Performed By: #### Yaakov Vigil, CMP #### [facility] [address] [place] [address] [place] Hemoglobin (Bld) [Mass/Vol] Hemoglobin [Mass/volume] in Blood 11.8-15.4 [facility] LDL Cholesterol Measuredon LDL Cholesterol Measured 112 mg/dL High 0-100 [facility] Comment on above: Order Comment: Reaso n for Exam Routine lab draw Result Comment: LDL ATP III CLASSIFICATION LDL less than 100 mg/dL Optimal LDL 100-129 mg/dL Near or above optimal LDL 130-159 mg/dL Borderline high LDL 160-189 mg/dL High LDL greater than 189 mg/dL Very high PERFORMED BY: [place] [address] PATHOLOGIST ORDINARY SEAMAN [facility]DC QUIGLEY M.D. Performed By: #### Yaakov Vigil, CMP #### [facility] [address] [place] [address] [place] Leukocytes [#/volume] correc david for nucleated erythrocytes in Blood by Automated counOrdered By: Vignesh Vogel on 09-03-2024 WBC corrected for nucl RBC Auto (Bld) [#/Vol] 13.8 10*3/uL High 3.8-11.6 [facility] WBC corrected for nucl RBC Auto (Bld) [#/Vol] Leukocytes [#/volume] corrected for nucleated erythrocytes in Blood by Automated coun [facility] 3.8-11.6 [facility] Leukocytes [#/volume] in Blo od by Automated countOrdered By: Vignesh Vogel on 09-03-2024 WBC (Bld) [#/Vol] 13.8 10*3/uL [facility] 3.8-11.6 [facility] Comment on above: Order Comment: Reaso n for Exam Routine lab draw Performed By: #### M G, CMP #### [address] Lipid Panelon 09-03-2024 LDL Cholesterol,Calculated Not performed Normal 0-100 [facility] Comment on above: Order Comment: Reaso n for Exam Routine lab draw Performed By: #### M G, CMP #### [address] Triglyceride w/Reflex 450 mg/dL High 0-149 [facility] Comment on above: Order Comment: Reaso n for Exam Routine lab draw Result Comment: TRIG ATP III CLASSIFICATION TRIG less than 150 mg/dL Normal TRIG 150-199 mg/dL Borderline high TRIG 200-500 mg/dL High TRIG greater than 500 mg/dL Very high Standard traceable to the Center for Disease Conrtrol and Prevention (CDC) test method. If the triglyceride result is greater than 400, LDLC and related calculations cannot be calculated and resulted. Performed By: #### M G, CMP #### [address] VLDL CHOLESTEROL 90 mg/dL Normal [facility] Comment on above: Order Comment: Reaso n for Exam Routine lab draw Performed By: #### M G, CMP #### [place] [address] [place] Lymphocytes Auto (Bld) [#/Vo l]Ordered By: Vignesh Vogel on 09-03-2024 Lymphocytes (Bld) [#/Vol] Lymphocytes [#/volume] in Blood by Automated count 1.00-4.8 [facility] Lymphocytes [#/volume] in Bl ood by Automated countOrdered By: Vignesh Vogel on 09-03-2024 Lymphocytes (Bld) [#/Vol] 2.8 10*3/uL Normal 1.00-4.8 [facility] Comment on above: Order Comment: Reaso n for Exam Routine lab draw Performed By: #### M G, CMP #### [facility] [address] [place] [address] Lymphocytes/100 WBC Auto (Bl d)Ordered By: Vignesh Vogel on 09-03-2024 Lymphocytes/100 WBC (Bld) Lymphocytes/100 leukocytes in Blood by Automated count . [facility] Lymphocytes/100 leukocytes i n Blood by Automated countOrdered By: Vignesh Vogel on 09-03-2024 Lymphocytes/100 WBC (Bld) 19.9 % Normal . [facility] Comment on above: Order Comment: Reaso n for Exam Routine lab draw Performed By: #### M G, CMP #### [address] MCH Auto (RBC) [Entitic mass ]Ordered By: Vignesh Vogel on 09-03-2024 MCH (RBC) [Entitic mass] MCH [Entitic mass] by Automated count 24.7-34.3 [facility] MCH [Entitic mass] by Automa david countOrdered By: Vignesh Vogel on 09-03-2024 MCH (RBC) [Entitic mass] 30.0 pg Normal 24.7-34.3 [facility] Comment on above: Order Comment: Reaso n for Exam Routine lab draw Performed By: #### M G, CMP #### [address] MCHC Auto (RBC) [Mass/Vol]Or dered By: Vignesh Vogel on 09-03-2024 MCHC (RBC) [Mass/Vol] 35.0 g/dL 32.0-35.0 [facility] MCHC (RBC) [Mass/Vol] MCHC [Mass/volume] by Automated count 32.0-35.0 [facility] MCV Auto (RBC) [Entitic vol] Ordered By: Vignesh Vogel on 09-03-2024 MCV (RBC) [Entitic vol] MCV [Entitic volume] by Automated count 80-100 [facility] MCV [Entitic volume] by Auto mated countOrdered By: Vignesh Vogel on 09-03-2024 MCV (RBC) [Entitic vol] 85.7 fL Normal 80-100 [facility] Comment on above: Order Comment: Reaso n for Exam Routine lab draw Performed By: #### M G, CMP #### [address] Monocytes Auto (Bld) [#/Vol] Ordered By: Vignesh Vogel on 09-03-2024 Monocytes (Bld) [#/Vol] Automated blood monocyte count High 0.0-0.8 [facility] Monocytes/100 WBC Auto (Bld) Ordered By: Vignesh Vogel on 09-03-2024 Monocytes/100 WBC (Bld) Automated monocyte % . [facility] Neutrophils Auto (Bld) [#/Vo l]Ordered By: Vignesh Vogel on 09-03-2024 Neutrophils (Bld) [#/Vol] Neutrophils [#/volume] in Blood by Automated count High 1.8-7.7 [facility] Neutrophils [#/volume] in Bl ood by Automated countOrdered By: Vignesh Vogel on 09-03-2024 Neutrophils (Bld) [#/Vol] 9.9 10*3/uL High 1.8-7.7 [facility] Comment on above: Order Comment: Reaso n for Exam Routine lab draw Performed By: #### M G, CMP #### [place] [address] [place] Neutrophils/100 WBC Auto (Bl d)Ordered By: Vignesh Vogel on 09-03-2024 Neutrophils/100 WBC (Bld) Automated neutrophil % . [facility] No Panel InformationOrdered By: Vignesh Vogel on 09-03-2024 Estimated GFR (CKD-EPI) > 60.0 mL/Min [facility] Creatinine Clearance (Chem N/A [facility] Nucleated erythrocytes [Pres ence] in Blood by Automated countOrdered By: Vignesh Vogel on 09-03-2024 Nucleated RBC Auto Ql (Bld) 0.0 /100{WBC} 0-0.5 [facility] Nucleated RBC Auto Ql (Bld) Nucleated erythrocytes [Presence] in Blood by Automated count 0-0.5 [facility] Platelet mean volume Auto (B ld) [Entitic vol]Ordered By: Vignesh Vogel on 09-03-2024 Platelet mean volume (Bld) [Entitic vol] Platelet mean volume [Entitic volume] in Blood by Automated count 6.3-10.7 [facility] Platelet mean volume [Entiti c volume] in Blood by Automated countOrdered By: Vignesh Vogel on 09-03-2024 Platelet mean volume (Bld) [Entitic vol] 6.4 fL Normal 6.3-10.7 [facility] Comment on above: Order Comment: Reaso n for Exam Routine lab draw Performed By: #### M Musa, CMP #### [place] [address] [place] Platelets Auto (Bld) [#/Vol] Ordered By: Vignesh Vogel on 09-03-2024 Platelets (Bld) [#/Vol] Platelets [#/volume] in Blood by Automated count 150-450 [facility] Platelets [#/volume] in Bloo d by Automated countOrdered By: Vignesh Vogel on 09-03-2024 Platelets (Bld) [#/Vol] 388 10*3/uL Normal 150-450 [facility] Comment on above: Order Comment: Reaso n for Exam Routine lab draw Performed By: #### Yaakov Vigil, CMP #### [facility] [address] [place] [address] [place] Potassium [Moles/volume] in Serum or PlasmaOrdered By: Vignesh Vogel on 09-03-2024 Potassium [Moles/Vol] 4.2 mmol/L Normal 3.5-5.1 [facility] Comment on above: Order Comment: Reaso n for Exam Routine lab draw Performed By: #### Yaakov Vigil, CMP #### [facility] [address] [place], [place] [id number] [place] Potassium [Moles/Vol] Potassium [Moles/v olume] in Serum or Plasma 3.5-5.1 [facility] Protein [Mass/volume] in Ser um or PlasmaOrdered By: Vignesh Vogel on 09-03-2024 Protein [Mass/Vol] 8.0 g/dL Normal 6.4-8.9 [facility] Comment on above: Order Comment: Reaso n for Exam Routine lab draw Performed By: #### M Musa, CMP #### [facility] [address] [place] [address] Protein [Mass/Vol] Protein [Mass/volume ] in Serum or Plasma 6.4-8.9 [facility] RBC Auto (Bld) [#/Vol]Ordere d By: Vignesh Vogel on 09-03-2024 RBC (Bld) [#/Vol] Erythrocytes [#/volu me] in Blood by Automated count 3.60-5.00 [facility] Serum globulin measurement b y calculation (mass/volume)Ordered By: Vignesh Vogel on 09-03-2024 Globulin (S) [Mass/Vol] 3.4 g/dL Normal [facility] Comment on above: Order Comment: Reaso n for Exam Routine lab draw Performed By: #### M G, CMP #### [facility] [address] [place] [address] Serum or plasma albumin/glob ulin mass ratioOrdered By: Vignesh Vogel on 09-03-2024 Albumin/Globulin [Mass ratio] 1.4 {ratio} [facility] Comment on above: Order Comment: Reaso n for Exam Routine lab draw Performed By: #### M Musa, CMP #### [facility] [address] [place] [address] Albumin/Globulin [Mass ratio] Serum or plasma albumin/globulin mass ratio [facility] Serum or plasma anion gap de terminationOrdered By: Vignesh Vogel on 09-03-2024 Anion gap [Moles/Vol] 15.4 mmol/L High 6.0-15.0 [facility] Comment on above: Order Comment: Reaso n for Exam Routine lab draw Performed By: #### M G, CMP #### [facility] [address] [place] [address] [place] Anion gap [Moles/Vol] Serum or plasma an ion gap determination High 6.0-15.0 [facility] Serum or plasma high density lipoprotein (HDL) cholesterol measurementOrdered By: Vignesh Vogel on 09-03-2024 Cholesterol in HDL [Mass/Vol] 28 mg/dL Normal 23-92 [facility] Comment on above: HDL CHOL ATP-III CLA SSIFICATION Cardiovascular RiskHDL > or equal to 60 mg/dL LOWHDL < 40 mg/dL HIGH Order Comment: Reaso n for Exam Routine lab draw Result Comment: HDL CHOL ATP-III CLASSIFICATION Cardiovascular Risk HDL > or equal to 60 mg/dL LOW HDL < 40 mg/dL HIGH Performed By: #### M Musa, CMP #### [facility] [address] Serum or plasma total choles terol/high density lipoprotein (HDL) cholesterol mass ratOrdered By: Vignesh Vogel on 09-03-2024 Cholesterol.total/Chol esterol in HDL [Mass ratio] 7.0 {ratio} Normal <5.0 [facility] Comment on above: Order Comment: Reaso n for Exam Routine lab draw Result Comment: PERF ORMED BY: [place] [address] PATHOLOGIST ORDINARY SEAMAN DUC QUIGLEY M.D. Performed By: #### M Msua, CMP #### [facility] [address] [place] [address] Cholesterol.total/Chol esterol in HDL [Mass ratio] Serum or plasma total cholesterol/high density lipoprotein (HDL) cholesterol mass rat <5.0 [facility] Sodium [Moles/volume] in Ser um or PlasmaOrdered By: Vignesh Vogel on 09-03-2024 Sodium [Moles/Vol] 135 mmol/L Low 136-145 [facility] Comment on above: Order Comment: Reaso n for Exam Routine lab draw Performed By: #### M G, CMP #### [facility] [address] Sodium [Moles/Vol] Sodium [Moles/volume ] in Serum or Plasma Low 136-145 [facility] Triglyceride [Mass/volume] i n Serum or PlasmaOrdered By: Vignesh Vogel on 09-03-2024 Triglyceride [Mass/Vol] 450 mg/dL High 0-149 [facility] Comment on above: If the triglyceride result is greater than 400, LDLC and related calculations cannot be calculated and resulted.TRIG ATP III CLASSIFICATIONTRIG less than 150 mg/dL NormalTRIG 150-199 mg/dL Borderline highTRIG 200-500 mg/dL High TRIG greater than 500 mg/dL Very highStandard traceable to the Center for Disease Conrtrol and Prevention (CDC) test method. Triglyceride [Mass/Vol] Triglyceride [Mass/volume] in Serum or Plasma High 0-149 [facility] Comment on above: If the triglyceride result is greater than 400, LDLC and related calculations cannot be calculated and resulted.TRIG ATP III CLASSIFICATIONTRIG less than 150 mg/dL NormalTRIG 150-199 mg/dL Borderline highTRIG 200-500 mg/dL High TRIG greater than 500 mg/dL Very highStandard traceable to the Center for Disease Conrtrol and Prevention (CDC) test method. Urea nitrogen [Mass/volume] in Serum or PlasmaOrdered By: Vignesh Vogel on 09-03-2024 Urea nitrogen [Mass/Vol] 18 mg/dL Normal 06-13 [facility] Comment on above: Order Comment: Reaso n for Exam Routine lab draw Performed By: #### M G, CMP #### [address] Urea nitrogen [Mass/Vol] Urea nitrogen [Mass/volume] in Serum or Plasma 06-13 [facility] WBC Auto (Bld) [#/Vol]Ordere d By: Vignesh Vogel on 09-03-2024 WBC (Bld) [#/Vol] Leukocytes [#/volume ] in Blood by Automated count High 3.8-11.6 [facility] XR finger LT 4th digiton XR finger LT 4th digit [facility] [place] [address] XRay Report Signed Patient: Stephanie Zayas MR#: [id number] : 1990 Acct:[id number] Age/Sex: 33 / F ADM Date: 02/08/24 Loc: ER Room: Type: [facility] ER Attending Dr: Copies to: Isak Falk APRN Ordering Provider: Isak Falk APRN Date of Service: 02/08/24 XR/XR finger LT 4th digit: Extremity Injury, Upper 3 views left hand plain film COMPARISON: None HISTORY: Left fourth digit swelling proximally. Dislocation 3 months ago. ACUTE FINDINGS: There is cortical irregularity and articular step-off involving the distal portion of the fourth proximal phalanx. This appears to correspond with old healed fracture. DEGENERATIVE CHANGE: Unremarkable SOFT TISSUE FINDINGS: Proximal left fourth digit soft tissue prominence identified. JOINT EFFUSION: None POSTOP CHANGES: None BONY MINERALIZATION: Adequate XR/XR finger LT 4th digit IMPRESSION: Healed/healing fracture distal portion of the fourth proximal phalanx with adjacent soft tissue swelling. Impression dictated by: Aston Griffin M.D.02/08/2024 12:49 PM Dictation Location: [place] [address] Transcribed By: [facility] 02/08/24 1249 Dictated By: Aston Griffin DO 02/08/24 1246 Signed By: 02/08/24 1249 Normal [facility] CBC W MANUAL DIFFon 01-25-20 22 ATYPICAL LYMPH # Normal [facility] Comment on above: Performed By: #### C MELISSA ####[facility] [id number] [place] [address]Dr. Marge [place] ATYPICAL LYMPH % Normal [facility] Comment on above: Performed By: #### C MELISSA ####[facility] [id number] [place] [address]Dr. Yilan Harrell BAND # Normal 0.0-0.3 [facility] Comment on above: Performed By: #### C JENNIFERMAN ####[facility] [address] [place] [address]Dr. Yilan Har[place] BAND % Normal 0-5 [facility] Comment on above: Performed By: #### C JENNIFERMAN ####[facility] [address] [place] [address]Dr. Judielan Harrell BASOM # 0.00 103/ul Normal 0.00-0.10 [facility] Comment on above: Performed By: #### C MELISSA ####[facility] [address] [place] [address]Dr. Marge Harrell BASOM % 0.0 % Critically low 0.2-2.0 [facility] Comment on above: Performed By: #### C MELISSA ####[facility] [address] [place] [address]Dr. Marge Harrell BLAST # Normal [facility] Comment on above: Performed By: #### C MELISSA ####[facility] [address] [place] [address]Dr. Marge Harrell BLAST % Normal [facility] Comment on above: Performed By: #### C MELISSA ####[facility] [address] [place], [place] [address]Dr. Marge Harrell CORRECTED WBC Normal 4.0-11.0 [facility] Comment on above: Performed By: #### C MELISSA ####[facility] [address] [place], [place] [address]Dr. Marge Harrell EOS # 0.20 103/ul Normal 0.00-0.70 [facility] Comment on above: Performed By: #### C MELISSA ####[facility] [address] [place], [place] [address]Dr. Marge Harrell EOS% 1.0 % Normal 0.9-7.0 [facility] Comment on above: Performed By: #### C MELISSA ####[facility] [address] [place], [place] [address]Dr. Marge Harrell HCT 42.4 % Normal 36.0-48.0 [facility] Comment on above: Performed By: #### C MELISSA ####[facility] [address] [place], [place] [address]Dr. Marge Harrell HGB 14.3 g/dl Normal 12.0-16.0 [facility] [facility] Comment on above: Performed By: #### C MELISSA ####[facility] [address] [place], [place] [address]Dr. Marge Harrell LYMPHM # 3.37 103/ul Normal 1.20-3.80 [facility] Comment on above: Performed By: #### C MELISSA ####[facility] [address] [place] [id number]. Marge Harrell LYMPHM% 17.0 % Critically low 20.5-60.0 [facility] Comment on above: Performed By: #### C MELISSA ####[facility] [address] [place] [id number]. Marge Harrell MCH 29.4 pg Normal 26.7-34.0 [facility] Comment on above: Performed By: #### C MELISSA ####[facility] [address] [place] [id number]. Marge Harrell MCHC 33.7 g/dl Normal 29.9-35.2 [facility] Comment on above: Performed By: #### C MELISSA ####[facility] [address] [place] [address]Dr. Marge Harrell MCV 87.1 fL Normal 81.0-99.0 [facility] Comment on above: Performed By: #### C MELISSA ####[facility] [address] [place], [place] [id number]. Marge Harrell METAMYELOCYTE # Normal [facility] Comment on above: Performed By: #### C MELISSA ####[facility] [address] [place] [id number]. Marge Harrell METAMYELOCYTE % Normal [facility] Comment on above: Performed By: #### C MELISSA ####[facility] [address] [place] [id number]. Marge Harrell MONOM# 1.39 103/ul Critically high 0.30-0.80 [facility] Comment on above: Performed By: #### C MELISSA ####[facility] [address] [place] [id number]. Marge Harrell MONOM% 7.0 % Normal 1.7-12.0 [facility] Comment on above: Performed By: #### C MELISSA ####[facility] [address] [place] [id number]. Marge Harrell MPV 8.6 fL Critically low 9.5-13.5 [facility] Comment on above: Performed By: #### C MELISSA ####[facility] [address] [place] [id number]. Marge Harrell MYELOCYTE # Normal [facility] Comment on above: Performed By: #### C MELISSA ####[facility] [address] [place] [id number]. Marge Harrell MYELOCYTE % Normal [facility] Comment on above: Performed By: #### C MELISSA ####[facility] [address] [place] [address]Dr. Marge Harrell NRBC Normal [facility] Comment on above: Performed By: #### C MELISSA ####[facility] [address] [place] [id number]. Marge Harrell PLT 418 103/ul Normal 150-450 [facility] Comment on above: Performed By: #### C MELISSA ####[facility] [address] [place], [place] [id number]. Marge Harrell RBC 4.87 106/ul Normal 4.20-5.40 [facility] Comment on above: Performed By: #### C MELISSA ####[facility] L[address] [place], [place] [id number]. Marge Harrell RDW 12.3 % Normal 11.0-15.0 [facility] Comment on above: Performed By: #### C MELISSA ####[facility] [address] [place] [id number]. Marge Harrell SEG # 14.85 103/ul Critically high 1.40-6.50 [facility] Comment on above: Performed By: #### C MELISSA ####[facility] [address] [place] [address]Dr. Marge Harrell SEG % 75.0 % Normal 43.0-75.0 [facility] Comment on above: Performed By: #### Genesis TORRES ####[facility] [address] [place] [id number]. Marge Harrell TOXIC GRANULATION SLIGHT Normal [facility] Comment on above: Performed By: #### C MELISSA ####[facility] [address] [place], [place] [address]FcJazmyn Harrell WBC 19.8 103/ul Critically high 4.0-11.0 [facility] Comment on above: Performed By: #### C MELISSA ####[facility] [address] [place], [place] [address]Jz. Marge [address] CT ABD/PELVIS WO CONon 01-24 CT ABD/PELVIS WO CON EXAMINATION: CT ABD /PELVIS WO CON, 01/24/2022 12:59 PM EST HISTORY: CALCULUS OF KIDNEY , right flank pain COMPARISON: None. TECHNIQUE: CT scan of the abdomen and pelvis was performed without IV contrast. CT dose reduction technique was used, including Automated Exposure Control. FINDINGS: LUNG BASES: No visible pulmonary or pleural disease. LIVER: Diffuse hypoattenuation suggesting hepatic steatosis BILIARY: No dilatation or calcification. PANCREAS: No lesion, fluid collection, ductal dilatation, or atrophy. SPLEEN: No enlargement or focal lesion. ADRENALS: No mass or enlargement. KIDNEYS: Mild right hydronephrosis extending to a 3 mm stone in the right ureteral pelvic junction axial image 70. Nonobstructing left nephrolithiasis BOWEL/MESENTERY: No visible mass, obstruction, or bowel wall thickening. AORTA/VASCULAR: No aneurysm or dissection. RETROPERITONEUM: No mass or adenopathy. LYMPH NODES: No adenopathy. URINARY BLADDER: No visible focal wall thickening, lesion, or calculus. PELVIC ORGANS: Asymmetrically enlarged right ovary measuring 3.1 x 6.6 cm with central hypodensity. No surrounding inflammatory changes. ABDOMINAL WALL: No mass or hernia. BONES: No bony lesion or fracture. OTHER: Negative. IMPRESSION: 3 mm right ureteropelvic junction stone with mild right hydronephrosis Asymmetrically enlarged right ovary, nonspecific Electronically authenticated by: GRAEME BAUMAN Date: 2022-01-24 15:11 Normal [facility] ER URINE PROFILEon 2 Bilirubin Ql (U) SMALL Abnormal NEGATIVE [facility] Comment on above: Performed By: #### P DAMEON WARD ERUR #### [facility] [address] [address] [address] Marge Harrell Clarity (U) SL CLOUDY Abnormal CLEAR [facility] Comment on above: Performed By: #### P REGU UMICRO, ERUR #### [facility] [address] [address] [address] Marge Harrell Color (U) DK. YELLOW Normal YELLOW [facility] Comment on above: Performed By: #### P REGU UMICRO, ERUR #### [facility] [address] [address] [address] Marge FRIEDAHD A micrscopic examina tion will be performed if indicated. Normal [facility] Comment on above: Performed By: #### P REGU UMICRO, ERUR #### [facility] [address] [address] [address] Marge Harrell Glucose Ql (U) Negative Normal NEGATIVE [facility] Comment on above: Performed By: #### P REGU UMICRO, ERUR #### [facility] [address] [address] [address] aMrge Harrell Hemoglobin Ql (U) LARGE Abnormal NEGATIVE [facility] Comment on above: Performed By: #### P REGUNAZICRO, ERUR #### [facility] [address] [address] [address] Marge Harrell Ketones Ql (U) Negative Normal NEGATIVE [facility] Comment on above: Performed By: #### P REGU UMICRO, ERUR #### [facility] [address] [address] [address] Marge Harrell LEUKOCYTES Negative Normal NEGATIVE [facility] Comment on above: Performed By: #### P REGU UMICRO, ERUR #### [facility] [address] [address] [address] Marge Harrell Nitrite Ql (U) Negative Normal NEGATIVE [facility] Comment on above: Performed By: #### P REGU UMICRO, ERUR #### [facility] [address] [address] [address] Marge Harrell pH (U) 5.5 [pH] Normal 5-9 [facility] Comment on above: Performed By: #### DAMEON CM, ERUR #### [facility] [address] [place] [address] Dr. Marge Harrell Protein (U) [Mass/Vol] 100 mg/dL Abnormal NEGAT CHRISSIE/ TRACE [facility] Comment on above: Performed By: #### DAMEON CM, ERUR #### [facility] [address] [place] [address] Dr. Marge Harrell SPEC GRAVITY >=1.030 Abnormal 1.005-<=1.0 25 [facility] Comment on above: Performed By: #### DAMEON CM, ERUR #### [facility] [address] [place] [address] Dr. Marge Harrell UR MICRO IND INDICATED Normal [facility] Comment on above: Performed By: #### DAMEON CM, ERUR #### [facility] [address] [place] [address] Dr. Marge Harrell Urobilinogen Qn (U) 0.2 {Zev'U}/dL Normal 0.2 - 1. 0 [facility] Comment on above: Performed By: #### DAMEON CM, ERUR #### [facility] [address] [place] [address] Dr. Marge Harrell LACTATE/LACTIC ACIDon 2021 Lactate [Moles/Vol] 1.9 mmol/L Normal 0.7-2.0 [facility] Comment on above: Performed By: #### L ACT #### [facility] [address] [place] [address] Dr. Marge Harrell Lactate [Moles/Vol] 2.4 mmol/L Critically high 0.7-2.0 [facility] Comment on above: Performed By: #### L ACT #### [facility] [address] [place] [address] Dr. Marge Harrell LIPASEon 01-24-2022 Lipase [Catalytic activity/Vol] 35.0 U/L Normal 23.0-300.0 [facility] Comment on above: Performed By: #### C MP, LIPA #### [facility] [address] [place] [address] Dr. Marge Harrell URon 01-24-2022 , QUAL Negative Normal NEGATIVE [facility] Comment on above: Performed By: #### P REGU, UMICRO, ERUR #### [facility] [address] [place] [address] Dr. Marge Harrell PROF 14(COMP METB)on 022 Albumin [Mass/Vol] 4.0 g/dL Normal 3.5-5.0 [facility] Comment on above: Performed By: #### C MP, LIPA #### [facility] [address] [place] [address] Dr. Marge Harrell Albumin/Globulin [Mass ratio] 0.9 {ratio} Normal [facility] Comment on above: Performed By: #### C MP, LIPA #### [facility] [address] [place] [address] Dr. Marge Harrell ALP [Catalytic activity/Vol] 116 U/L Normal 38-126 [facility] Comment on above: Performed By: #### C MP, LIPA #### [facility] [address] [place] [address] Dr. Marge Harrell ALT [Catalytic activity/Vol] 84 U/L Critically high 9-52 [facility] Comment on above: Performed By: #### C MP, LIPA #### [facility] [address] [place] [address] Dr. Marge Harrell Anion gap [Moles/Vol] 14.3 mmol/L Normal [facility] Comment on above: Performed By: #### C MP, LIPA #### [facility] [address] [place] [address] Dr. Marge Harrell AST [Catalytic activity/Vol] 28 U/L Normal 14-36 [facility] Comment on above: Performed By: #### C MP, LIPA #### [facility] [address] [place] [address] Dr. Marge Harrell Bilirubin [Mass/Vol] 0.4 mg/dL Normal 0.2-1.3 [facility] Comment on above: Performed By: #### C MP, LIPA #### [facility] [address] [place] [address] Dr. Marge Harrell Calcium [Mass/Vol] 8.8 mg/dL Normal 8.4-10.2 [facility] Comment on above: Performed By: #### C MP, LIPA #### [facility] [address] [place] [address] Dr. Marge Harrell Chloride [Moles/Vol] 101 mmol/L Normal 98-107 [facility] Comment on above: Performed By: #### C MP, LIPA #### [facility] [address] [place] [address] Dr. Marge Harrell CO2 [Moles/Vol] 22.5 mmol/L Normal 22.0-30.0 [facility] Comment on above: Performed By: #### C MP, LIPA #### [facility] [address] [place] [address] Dr. Marge Harrell Creatinine [Mass/Vol] 0.70 mg/dL Normal 0.52-1.04 [facility] Comment on above: Performed By: #### C MP, LIPA #### [facility] [address] [place] [address] Dr. Marge Harrell EGFR-AF MACANESE >60 Normal >=60 [facility] Comment on above: Performed By: #### C MP, LIPA #### [facility] [address] [place] [address] Dr. Marge Harrell EGFR-NON AF MACANESE >60 Normal >=60 [facility] Comment on above: Performed By: #### C MP, LIPA #### [facility] [address] [place] [address] Dr. Marge Harrell Globulin (S) [Mass/Vol] 4.5 g/dL Normal [facility] Comment on above: Performed By: #### C MP, LIPA #### [facility] [address] [place] [address] Dr. Marge Harrell Glucose [Mass/Vol] 148 mg/dL Critically high 74-106 [facility] Comment on above: Performed By: #### C MP, LIPA #### [facility] [address] [place] [address] Dr. Marge Harrell Potassium [Moles/Vol] 3.8 mmol/L Normal 3.4-5.0 [facility] Comment on above: Performed By: #### C MP, LIPA #### [facility] [address] [place] [address] Dr. Marge Harrell Protein [Mass/Vol] 8.5 g/dL Critically high 6.1-8.2 [facility] Comment on above: Performed By: #### C TEDDY, LIPA #### [facility] [address] [place] [address] Dr. Marge Harrell Sodium [Moles/Vol] 134 mmol/L Critically low 137-145 [facility] Comment on above: Performed By: #### C TEDDY, LIPA #### [facility] [address] [place] [address] Dr. Marge Harrell Urea nitrogen [Mass/Vol] 19.0 mg/dL Critically high 7.0-17.0 [facility] Comment on above: Performed By: #### C TEDDY, LIPA #### [facility] [address] [place] [address] Dr. Marge Harrell Urea nitrogen/Creatinine [Mass ratio] 27.1 mg/mg Normal [facility] Comment on above: Performed By: #### C TEDDY, LIPA #### [facility] [address] [place] [address] Dr. Marge Harrell URINE MICROSCOPIC ONLYon BACTERIA NONE SEEN Normal NONE SEEN [facility] Comment on above: Performed By: #### P DAMEON WARD ERUR #### [facility] [address] [place] [address] Dr. Marge Harrell Bacteria identified Cx Nom (U) NOT INDICATED Normal [facility] Comment on above: Performed By: #### P DAMEON WARD ERUR #### [facility] [address] [address] [address] Marge Harrell CA OX CRYSTALS MODERATE Normal [facility] Comment on above: Performed By: #### P REGNAZ BotelloICRO, ERUR #### [facility] [address] [address] [address] Marge Harrell CAST NONE SEEN Normal NONE SEEN [facility] Comment on above: Performed By: #### P REGUNAZICRO, ERUR #### [facility] [address] [address] [address] Marge Harrell Crystals LM Nom (Urine sed) SEEN Abnormal NONE SEEN [facility] Comment on above: Performed By: #### P REGKRISTOPHER BotelloRO, ERUR #### [facility] [address] [address] [address] Marge Harrell Epithelial cells LM Ql (Urine sed) MODERATE Abnormal NONE SEEN /RARE [facility] Comment on above: Performed By: #### P REGUNAZICRO, ERUR #### [facility] [address] [address] [address] Marge Harrell MUCOUS TRACE Abnormal NONE SEEN [facility] Comment on above: Performed By: #### P REGKRISTOPHER BotelloRO, ERUR #### [facility] [address] [address] [address] Marge Harrell RBC 20-50 Abnormal 0-2 [facility] Comment on above: Performed By: #### P REGKRISTOPHER BotelloRO, ERUR #### [facility] [address] [address] [address] Marge Harrell WBC NONE SEEN Normal NONE SEEN [facility] Comment on above: Performed By: #### P REGKRISTOPHER BotelloRO, ERUR #### [facility] [address] [place] [address] Dr. Marge Harrell URon 01-22-2022 , QUAL Negative Normal NEGATIVE [facility] Comment on above: Performed By: #### P REGU #### [facility] [address] [address] [address] Marge Harrell XR ANKLE LT MIN 3 Von 2021 XR ANKLE LT MIN 3 V IMAGES REVIEWED: XR ANKLE LT MIN 3 V COMPARISON: None available. CLINICAL INDICATION: Pain and swelling. FINDINGS/IMPRESSION: 1. No radiographic evidence of acute osseous abnormality of the left ankle. 2. Mild soft tissue swelling. 3. Mild enthesopathic change at the distal Achilles tendon insertion. Electronically authenticated by: HOMER RODRIGUEZ Date: 2022-01-22 20:19 Normal [facility] Coding Summary.on 07-02-2021 Coding Summary. [id number] Gh0bWw +PGhlYWQ+SX0KEXSiK49sePAna G2PB3nAWW1IVTVUSRDFMT1ACX0 nfZV0IFjjA0JlhpLp HwduuQBpQG54EWo0OEA8zHurNH pzvE7cdZNeF8q8GfOqFI93oQ11 AQolMPIoCdG4NgHwfcyoqAVn Q4elRuAgvRRiLgd+PHRhYmxlIH qlIYRkFVokWPGkRjVceCjlRI4o Yd5bWNBaDGNchWsnfERcMxQl u5taCSBzAEfaBM8mpAndS2BejF O3QDLrm2f8Xz11xAF+PHRkIHN0 oDuhMEbmq495PlWau1mwPRX4 bBCsRDjrTQJ4X26om1D7XYRaBK VyYIS4kQC7oL9fkZmdryntV4Hx kQXbNtI6YUJ1jNOeyU1jjPsn dwonmT1cBtj+L97NVP5JMIEZII 2HDip2U9WkCxbsxOW+PN02IKSv RE65yBQfrVWma3luvKa5DlVk ZGJoODD8kAhvTCdaf4NpPSXbH8 6laXQby5W5UGDbgGskbHSmBlXe dNH9yC0gMUtgjmeua7dcldby Kzlvd7sshz42sO99T18rIDopST TcETQ6ZEIuEAKhqYhpux0puO5y Ii8+TGvio6kbj1kqfRy4IjLj NRNrmpVseFtmFVU2s8ClPl88U3 WyvQdxt9OhAmt7yx71uLTsw5A9 bLH5SJltRKNmvG1uREupVxO5 EFAgOaEalE61cMPiLEkvDn9ewD rviOoqAP2mPSJdazqmIZFmkT1l PKCjsKMygUjlIL0iHDGgdbej z294TfRdWZO8PZNgkIKwU0SluQ 0oCmJdFPYsMRRtB5WjjQPwYIos D981PQzjXtS2RHHvwrLiK7Fj CSWcrRbfCwF9l8J8Bl1Rc4Nncb qzNJZ0JUxyDKS2UlYxPcOqShN0 E8IqLua9XVWaiDovLO0pD8Al WSPrdapecmpmkVZ8WUJvWLNyoS 99aMAcVIhtYx6fb9G8y008ENLl NPQgtN95Wt2epKveVMZecJHM cF0kigcka2aqgsoaKtZoFHVxJA z0TAb0TZXhaIeiXnJvAIL3DtV9 YVW3bWKxyL0njWskcatffT4c Oyc+K12zgE1xEFT2RMI3scapWG PnsfFoRM37AH18N1KsMcsbtQOf bGU+LWLucoOunEswPD9uLiVg v4xyp8HdWBimP3EvLLTaMMquWv d3ISOlBLJ0aLB6oD3iRHQlQGsf c6U9iOO2U1ZiuxNpup4ya8gs JSBsPAmxC97rtBTyw7J3JDBunO T1PECcaKoqMsWzwU19Dvb+PGNv jSglg8ThBorhs4zzj9ybjFi6 GbEtMKUyjmQjmLltMWQ4o2FbXu 21Q43nVHelNRGpBUGtCBSfPXFv mUjkdz5eyE1zDb2+PGNvbCB3 yCC3qG3fPHZjYeU0GAgjV602Jj RotKBePbuzw7nfh8idwHe7ZnQx CWDdwrRuoKxqLVN7u2EeLb64 X68fSQwpJEYfFXWeDZKaNLQzjN dcab2fcJ9eXu9+SQ0sa2ebww90 uO74cLJ+DYYeZFA6yNbsMRbp ARAzwW4yQVxzLfM6TOFqWlOmjP 37kGTbPLaaEx9vsVqvaDghHJ1g YMJbycfob639OqPcb1fsGLQg zPSqZExpFMS8X68nd2H6YDLpUF RsNXD3iPA3fW6aoYfpcctvpXNd gNvjkpIqpLwsPAttAZjaF243 IHRvcDsnPlBhdGllbnQgTmFtZT m8Y7JtWkf2ELXxqUtcED4rzATs ZPqkZq5jwTkihZgqLK0wDDCx tvucy275GzOer7ndAAVveFQzRX faICX9L00jg8J3JJMsFHYiSTT9 lLE4oU7ihSsmrsxstLNdjNbo vnLzjCifTCxqKYmmC636ORRpxL daKjHgcmNyVQNxiXV5WS49TK21 eDAem6N8xOQ9M0AtSNQhozqg avdjzZH7PRCnIQMtbQ11Rt2bjZ xoYs2bLFCaTLW8UVNocEDtM3Lo oV9sDnVnZOUxUNNdX7IwqMQj XAdtN355BVwjLyN3YAHzabVlS9 PgQHDdzEcuKsD5s8M1Fm4GU9E4 VM69JS88nDGki3X7oBM0H4Jm APPwffwmjtnkgKP4XLImGLJgyP 25Gj2liXlcWe3sUCCcVCU1UOMg qRKqT8ZaiB7dFmLkIUKgTGWz B4BkuNLkWBwcZ445JQriGeK6JA DyidTmK6HmFCNkxOqdLaX5v7Y2 Rj2TRSk5FB59ZJ50qLEkh2P3 fZF7P4CvFUCdikcbtvsyvEY6UK QfQMFvrQ48Vt8epKeyUv4iYZAt KRE7NFOcaTXdL8LddW8nNpGd ESEvODJuB0UpnHTpXDifS002RG wsDuE0HOEqxpChO7EnYFQwlDkt DlD9x0F2So9QQPIpJU33VNU7 bUD7TL43BG69S4ZwPgljkDTarF U+PHRhYmxlIHdpZHRoPScxMDAl GxBwtCdbWE9vHx5oPMJxYJEm tNuisXNkMrJhc8pkVWLsBWhgIK 1zpPtnX8QxlOP2XJYdi3z8Wt00 Z53tZ3GzmAZ+DODdyWT8dPA7 aW0mWcEeKpI5XZfkN418YbZrqC YqEfira6kvd6ykzGi5DdL4VCLi igVzxNvpHTP2f7YiFa43B72g IHdpZHRoPSIxNSUiIHZhbGlnbj 6ccS6qGu5+CDDgcZN0wAD5kJ3d LdCcLbK4GKijE544NjCmcUGo Vndkr2kkz2kkeRv9ReToPOMmey YchQhgWBU0n3NwHr88J6BviTff i2UuIqi3sf50fURjt3W0hQY9 W9QxTIIyfkucxECanJicWP0eIH ZkfflvJLEcgP0aAWGwJ5f8UhUv OdH2DTuqL0TtjgZ1KREhzFTk DDxbWHU2A13wh5U3MGYfIZKgXC Z1sDM6bV3dkVgssfamiFWwvVea oiYszOckVVyrLUwsH098VJTl xBjlVAFprS8yEQXsvEMdrLftJB 9xVATyajlmWzjPJxVKLbpzG53H UlRORVkgQTwvdGQ+PHRkIHN0 yRnaIHpxJWMnwX2iDNPiM8y8Sa YzBrB2JAhiH8CtXFSxuvpwJm56 eY6oQaImEcQ2KXcqI5IcbyP7 IAPtnCRgQOuxVNB3D00dp5Q8QL WzRKBkWWJ7zBL9qN5wfWfpjaqa bGVmdDsgdmVydGljYWwtYWxp X417FHYpcShiPrEnDuW2EmE4CF K8A6QgBgx6ISYbzFfbUT6nlGHr YKfmOn5wqUtpnRuxRR0pKOGn nvlaGHNoaP0tQOHqmFPicKjcPK 1mNOPbsvsqe911EnDrSEL3ZJRx wJBsD3AvfW7dYxEiSLSdEWFb E0XvqOAhUZifJ611GYroEyC3KY OorfKfT5DuBJXomZbkXtW4k4E6 Mw5fDRKYAIFllifurGS+PHRk RTB7wYfqHQtiHPHzjB5cQHFaK5 p1NqYsBvG5VUblG5LxETWljirc Ok34tQ8tGgKfYoL9IGnvP2Jt aaF9RWPceVZpMJmnIXY6P56ew7 A8TVXlHENqWBM0vSJ5tL8ixGlg bjogbGVmdDsgdmVydGljYWwt YVqoH172OGXsiNzbWzDffGVdVP wvdGQ+UFBrPNC7bWfxNZqiIUNt jV3xSVNfZ6v6KkViAhD2UFll F8PcNBSjhpdkLv40jX6rDiDvAx W0UWxyM2TtjyC7KEXqfYRcIMsg SOQ2C04hh7D9QVZfMWHdGNN2 gVR4dF5hbMxgmmesqEIirUxfbh FipFalDMyvWRxjL105UYJuuIqr QjTkMUXrYG6aeFhvfTE+PC90 rd34K2AjJnffLvk4TZPpYYD1dO K3kJ6hIMIzNHcri5B6aPS3J3Kk btSzix1qy1yvGQLgEYuqE78m jLXxs7N8POBysMR9DVPmxJrmPv HzfU06Pia+MLCzpCuat7UeXfif x1jhw6hnyWg4PnYjGVXtfoIc sLtyERY8e8BsMv38O07lRTqbEH HhMIPaMCMgDVXqtLmuah7oaM7k Ii8+BODqqCO2tQA7iK9tWaEq FkY2RNwhH179WoJlmNGcMaoda6 gsp5ipkOu3MrHaXQQbhlZkmUxn CHT8g4SeWs72X9PpvJkok9Od Msc4gy10oCPek9A1vYW0I7YiCN VrmgrzxOFeaLlhVR2uEZOajbvg GXWvbF0rKJRbC5v6XbDjVoO7 XVrnX0YuqgE4TBMjnHQdIDBtpI TTzB6ynthwh2djshaeQbMcKXEr IIg9QJz6OPHnmTvqUrBfWOW8 VxE9FXB1oYKimZ0csWzvgmxlxJ 9wOyc+HRh1t4gvbICzLB8hrFF3 VE68SM02yUDcm5U6qWG1I3Qk EZFvbxxokthqwYN0WUGjAASvzA 79Wj0bhWwlLs3jPRVyOTU7NWQz qDExH3LyhU3pTaTpKCTsHJJy O8IrhMQxSPsmG549UFzyGcY2QS WskvRuR2BrAZSrsYycGxG6w4D6 [id number] qYD4W2QiKIFadmrhgmecwAX9OX QoCPAmqY37Pf2zvKecQe6fDWQb ANB7PLAnpJGpV4CaaN0sBsOk XEElAKPeC9SebJSyICsrO669VE peZuW2DIDmtpDoU0HxWLGhvXdx AmU9a6N7Fw2BVr04UK92GR48 eVBiq5R1aQT2H4ZxCOPbjllqgl oebSH9BYZnKFDfrX11Ns5kkXgm Dr2oRYHpXRE5ADIdtIVcW2Aw dC7cSwZfHLAfYNQhW7HscPAjPZ taR734HUkpBxH3YZGmreXoK2Mp RWHzeIujWnH0s0J4Rm4XEMnx nvl3X6OgQkbmnCR+GZ90ICEeMK 76aOGjqNSoj9nynAs9BcEuFUEu JKC6rVvtSOxoz7VbYPRoQ14j bGFw (more content not included)... [facility] Consent for Treatmenton Consent for Treatment [id number]:127 [facility] Discharge Instructionson Discharge Instructions [id number]:127 [facility] ED Clinical Summaryon 2020 ED Clinical Summary (Inserted Image. Maliha ble to display) [place] [id number] ED Clinical Summary Person Information Name: STEPHANIE ZAYAS Jessica/[facility] Age: 30 Years : 1990 Sex: Female Language: Divehi PCP: Danny OTTO MD Marital Status: Single Visit Id: Visit Reason: Respiratory problem; Shortness of breath; Cough; POS BRONCHITIS Speciality: Acuity: 3 Enc Type: Emergency Med Service: Emergency Arrival: 06/20/2021 16:22:23 Discharge: 06/20/2021 19:02:58 LOS: 000 02:40 Checkin: 06/20/2021 16:22:23 Checkout: 06/20/2021 19:02:58 Dispo Type: Home (Routine DC) EVENTS: Event Name Event Status Request Date/Time Start Date/Time Complete Date/Time Arrive Complete 06/20/2021 16:22:23 06/20/2021 16:22:23 06/20/2021 16:22:23 Document Home Meds Request 06/20/2021 16:22:23 Triage Complete 06/20/2021 16:22:23 06/20/2021 16:35:40 06/20/2021 16:35:40 Bed Assign Complete 06/20/2021 16:27:40 06/20/2021 16:27:40 06/20/2021 16:27:40 Dr Exam Complete 06/20/2021 16:27:40 06/20/2021 16:34:47 06/20/2021 16:34:47 RN Exam Complete 06/20/2021 16:27:40 06/20/2021 16:40:46 06/20/2021 16:40:46 Registration Complete 06/20/2021 16:28:54 06/20/2021 16:28:54 06/20/2021 16:28:54 Reg Complete Request 06/20/2021 16:28:54 Reg Bed Request Complete 06/20/2021 16:28:54 06/20/2021 16:28:54 06/20/2021 16:28:54 Registration Request 06/20/2021 16:34:47 EKG Complete 06/20/2021 16:35:02 06/20/2021 16:42:50 Meds Admin Complete 06/20/2021 16:46:36 06/20/2021 16:59:20 X-Ray Complete 06/20/2021 16:46:36 06/20/2021 17:18:49 06/20/2021 17:30:22 RT Tx/ABG Complete 06/20/2021 16:46:37 06/20/2021 17:12:06 06/20/2021 17:12:06 RT Tx/ABG Complete 06/20/2021 16:46:37 06/20/2021 17:12:11 06/20/2021 17:12:11 RT Tx/ABG Complete 06/20/2021 16:46:37 06/20/2021 17:11:57 06/20/2021 17:11:57 RT Tx/ABG Complete 06/20/2021 16:46:37 06/20/2021 17:12:19 06/20/2021 17:12:19 Wet Read Request 06/20/2021 17:30:22 Discharge Complete 06/20/2021 18:45:16 06/20/2021 19:06:05 06/20/2021 19:06:05 Meds Admin Request 06/20/2021 18:46:03 RT Tx/ABG Request 06/20/2021 18:46:03 RT Tx/ABG Request 06/20/2021 18:46:03 Transfer Complete 06/20/2021 19:06:05 06/20/2021 19:06:05 06/20/2021 19:06:05 ADDRESS: [address] [place] [address] [address] [place] [id number] PHYS DOC NOTES: MEDICAL INFORMATION: Prescriptions Given: New Medications [facility], [address] [place], [place] [id number], [phone] albuterol (Albuterol (Eqv-ProAir HFA) 90 mcg/inh inhalation aerosol) 2 Puffs Inhalation every 6 hours as needed as needed for wheezing. Refills: 0. predniSONE (predniSONE 50 mg Tab) 1 Tablets By Mouth every day for 7 Days. Refills: 0. Medications to Continue with No Changes Other Medications emollients, topical (Aquaphor topical ointment) 1 Application Topical 2 times a day as needed for dry skin. Refills: 0. PATIENT EDUCATION INFORMATION: Instructions: Acute Bronchitis, Adult Follow up: With: Address: When: Danny OTTO [address] [place] [address], [place] [address] Business (1) In 3 days 06/23/2021 Comments: Return to the emergency room if your shortness of breath gets worse, you develop fever or any new symptoms DIAGNOSIS: 1:Acute bronchitis [facility] ED Note-Physicianon 06-20-20 ED Note-Physician Basic Information Time Seen: Angelia Campa M.D. 06/20/2021 16:34 Chief Complaint pt states she gets bronchitis at least once/year for past 7 years, admits coughing and wheezing, and sob, quit smoking 5 years ago History of Present Illness The patient is 30-year-old female who presented to the emergency room with cough shortness of breath. The patient states for past 1 week she has been coughing. She states she has not been able to cough up any phlegm. She reports shortness of breath which is all the time when she gets bronchitis. The patient denies any fever denies any chills. She denies any nausea or vomiting. She denies any sore throat. The patient denies any chest pain. She states she smoked for about 7 years. She quit 5 years ago. The patient denies any other associated symptoms. Review of Systems Additional ROS info: Except as noted in the above Review of Systems and in the History of Present Illness all other systems have been reviewed and are negative or noncontributory. Physical Exam Vitals & Measurements T: 36.8 ?C (Oral) HR: 91(Peripheral) RR: 20 BP: 153/94 SpO2: 94% HT: 165 cm HT: 165.0 cm WT: 109 kg WT: 109.0 kg BMI: 40.04 General: alert, no acute distress Skin: warm, dry Head: no trauma, normocephalic Neck: Trachea midline Eye: normal conjunctiva, sclera clear Cardiovascular: regular rate and rhythm Respiratory: Lungs expiratory wheezes, respirations non labored, breath sounds equal Gastrointestinal: soft, non distended, no tenderness, no guarding Extremities: no deformity, no trauma Neurological: Alert and oriented, speech normal, no focal neuro deficits Psychiatric: cooperative, affect appropriate for age, Medical Decision Making The patient presented with cough shortness of breath. More likely her symptoms are due to acute bronchitis. The patient has wheezing upon exam which improved after breathing treatment. The chest x-ray shows no acute cardiopulmonary disease. The patient was given albuterol inhaler and will be discharged home with prednisone 40 mg for 7 days. She is instructed to return to the emergency room if her shortness of breath gets worse, fever or any new symptoms. Assessment/Plan 1. Acute bronchitis (J20.9: Acute bronchitis, unspecified) Orders: albuterol, 5 mg, 6 mL, Soln-Inh, Inhalation, Once, Stop date 06/20/21 16:46:00 EDT, STAT, Start date 06/20/21 16:46:00 EDT albuterol, 180 mcg, 2 puff(s), Aerosol, Inhalation, Once, Stop date 06/20/21 18:45:00 EDT, STAT, Start date 06/20/21 18:45:00 EDT, Teach and Treat albuterol, 2 puff(s), Inhalation, q6hr as needed for wheezing, 1 EA, Refill(s) 0, [facility], 165, cm, 06/20/21 16:35:00 EDT, Height/Length Dosing, 109, kg, 06/20/21 16:35:00 EDT, Weight Dosing albuterol, Soln-Inh, Misc, Once, Stop date 06/20/21 17:06:19 EDT, Physician Stop, 06/20/21 17:06:19 EDT albuterol-ipratropium, 3 mL, Soln-Inh, Inhalation, Once, Stop date 06/20/21 16:45:00 EDT, STAT, Start date 06/20/21 16:45:00 EDT predniSONE, 50 mg = 1 tab(s), Oral, Daily, X 7 day(s), # 7 tab(s), Refills(s) 0, Pharmacy: [facility], 165, cm, 06/20/21 16:35:00 EDT, Height/Length Dosing, 109, kg, 06/20/21 16:35:00 EDT, Weight Dosing XR Chest 2 Views Medications Administered Given albuterol 0.083% Inh Miranda 3 mL, 5 mg, Inhalation DuoNeb 2.5 mg-0.5 mg/3 mL Soln-Inh, 3 mL, Inhalation Disposition Plan Patient Discharge Condition Stable, improved Discharge Disposition Discharged home Discharge Prescription List Prescriptions Albuterol (Eqv-ProAir HFA) 90 mcg/inh inhalation aerosol, 2 puff(s), Inhalation, q6hr, PRN predniSONE 50 mg Tab, 50 mg= 1 tab(s), Oral, Daily Follow-up With When Contact Information Danny OTTO In 3 days 06/23/[address] [place] [phone]- Business (1) Additional Instructions: Return to the emergency room if your shortness of breath gets worse, you develop fever or any new symptoms Patient Education Acute Bronchitis, Adult Problem List/Past Medical History Ongoing No qualifying data Historical Bronchitis Medications Inpatient albuterol HFA 90 mcg/inh MDI, 180 mcg= 2 puff(s), Inhalation, Once Home Albuterol (Eqv-ProAir HFA) 90 mcg/inh inhalation aerosol, 2 puff(s), Inhalation, q6hr, PRN Aquaphor topical ointment, 1 ana, Topical, BID, PRN predniSONE 50 mg Tab, 50 mg= 1 tab(s), Oral, Daily Allergies No Known Allergies Social History Alcohol - Low Risk, 01/24/2016 1-2 times per year, 06/20/2021 Current, 05/11/2020 Substance Abuse - Denies Substance Abuse, 01/24/2016 Marijuana, 1-2 times per month, 06/20/2021 Current, 05/11/2020 Tobacco - Denies Tobacco Use, 01/24/2016 Former smoker, quit more than 30 days ago Tobacco Use:., 06/20/2021 Former smoker, quit more than 30 days ago Tobacco Use:., 05/11/2020 Lab Results No qualifying data available. Diagnostic Results XR Chest 2 Views 06/20/21 17:40:54 I (more content not included)... [facility] Comment on above: Result Comment: Elec tronically Signed By: Katheryn Caal, Angelia Odonnell\.br\Date and Time Signed: 06/20/21 18:47 EDT ED Patient Education Noteon 06-20-2021 ED Patient Education Note Pulmonary Medicine Acute Bronchitis, Adult Acute bronchitis is sudden (acute) swelling of the air tubes (bronchi) in the lungs. Acute bronchitis causes these tubes to fill with mucus, which can make it hard to breathe. It can also cause coughing or wheezing. In adults, acute bronchitis usually goes away within 2 weeks. A cough caused by bronchitis may last up to 3 weeks. Smoking, allergies, and asthma can make the condition worse. Repeated episodes of bronchitis may cause further lung problems, such as chronic obstructive pulmonary disease (COPD). What are the causes? This condition can be caused by germs and by substances that irritate the lungs, including: ? Cold and flu viruses. This condition is most often caused by the same virus that causes a cold. ? Bacteria. ? Exposure to tobacco smoke, dust, fumes, and air pollution. What increases the risk? This condition is more likely to develop in people who: ? Have close contact with someone with acute bronchitis. ? Are exposed to lung irritants, such as tobacco smoke, dust, fumes, and vapors. ? Have a weak immune system. ? Have a respiratory condition such as asthma. What are the signs or symptoms? Symptoms of this condition include: ? A cough. ? Coughing up clear, yellow, or green mucus. ? Wheezing. ? Chest congestion. ? Shortness of breath. ? A fever. ? Body aches. ? Chills. ? A sore throat. How is this diagnosed? This condition is usually diagnosed with a physical exam. During the exam, your health care provider may order tests, such as chest X-rays, to rule out other conditions. He or she may also: ? Test a sample of your mucus for bacterial infection. ? Check the level of oxygen in your blood. This is done to check for pneumonia. ? Do a chest X-ray or lung function testing to rule out pneumonia and other conditions. ? Perform blood tests. Your health care provider will also ask about your symptoms and medical history. How is this treated? Most cases of acute bronchitis clear up over time without treatment. Your health care provider may recommend: ? Drinking more fluids. Drinking more makes your mucus thinner, which may make it easier to breathe. ? Taking a medicine for a fever or cough. ? Taking an antibiotic medicine. ? Using an inhaler to help improve shortness of breath and to control a cough. ? Using a cool mist vaporizer or humidifier to make it easier to breathe. Follow these instructions at home: Medicines ? Take opum-rsq-eivwcfq and prescription medicines only as told by your health care provider. ? If you were prescribed an antibiotic, take it as told by your health care provider. Do not stop taking the antibiotic even if you start to feel better. General instructions ? Get plenty of rest. ? Drink enough fluids to keep your urine pale yellow. ? Avoid smoking and secondhand smoke. Exposure to cigarette smoke or irritating chemicals will make bronchitis worse. If you smoke and you need help quitting, ask your health care provider. Quitting smoking will help your lungs heal faster. ? Use an inhaler, cool mist vaporizer, or humidifier as told by your health care provider. ? Keep all follow-up visits as told by your health care provider. This is important. How is this prevented? To lower your risk of getting this condition again: ? Wash your hands often with soap and water. If soap and water are not available, use hand boom stick man. ? Avoid contact with people who have cold symptoms. ? Try not to touch your hands to your mouth, nose, or eyes. ? Make sure to get the flu shot every year. Contact a health care provider if: ? Your symptoms do not improve in 2 weeks of treatment. Get help right away if: ? You cough up blood. ? You have chest pain. ? You have severe shortness of breath. ? You become dehydrated. ? You faint or keep feeling like you are going to faint. ? You keep vomiting. ? You have a severe headache. ? Your fever or chills gets worse. This information is not intended to replace advice given to you by your health care provider. Make sure you discuss any questions you have with your health care provider. Document Released: 12/14/2005 Document Revised: 09/19/2019 Document Reviewed: 04/26/2017 [employer] Patient Education ? 2019 [employer]. [facility] ED Patient Summaryon 021 ED Patient Summary (Inserted Image. Maliha ble to display) [place] [id number] Patient Discharge Instructions Person Information Name: STEPHANIE ZAYAS Age: 30 Years Arrival Date: 06/20/2021 16:22:23 Discharge Diagnosis: 1:Acute bronchitis Primary Care Physician: Danny OTTO MD Provider Information Primary Provider: Angelia Campa M.D. Advanced Editorial Intern:None The exam and treatment you received in the Emergency Department were for an urgent problem and are not intended as complete care. It is important that you follow up with a doctor, nurse practitioner, or physician?s training program assistant for ongoing care. If your symptoms become worse or you do not improve as expected and you are unable to reach your usual health care provider, you should return to the Emergency Department. We are available 24 hours a day. STEPHANIE ZAYAS has been given the following list of patient education materials, prescriptions and follow-up instructions: Follow-up Instructions: With: Address: When: Danny OTTO [address] [place] [address], [place] [address] Business (1) In 3 days 06/23/2021 Comments: Return to the emergency room if your shortness of breath gets worse, you develop fever or any new symptoms In the event that this physician does not participate in your insurance network, please consult with your insurance company to find a nearby participating provider. Patient Education Materials: Acute Bronchitis, Adult A MESSAGE TO ALL PATIENTS REGARDING OPIOIDS PRESCRIPTION OPIOIDS: WHAT YOU NEED TO KNOW Prescription opioids can be used to help relieve dgrwxzja-ra-xakfdm pain and are often prescribed following a surgery or injury, or for certain health conditions. These medications can be an important part of the treatment but also come with serious risks. It is important to work with your healthcare provider to make sure you are getting the safest, most effective care. WHAT ARE THE RISKS AND SIDE EFFECTS OF OPIOID USE? Prescription opioids carry serious risks of addiction and overdose, especially with prolonged use. An opioid overdose, often marked by slowed breathing, can cause sudden . The use of prescription opioids can have a number of side effects as well, even when taken as directed: ? Tolerance?meaning you might need to take more of the medication for the same pain relief ? Physical dependence?meaning you have symptoms of withdrawal when a medication is stopped ? Increased sensitivity to pain ? Constipation ? Nausea, vomiting, and dry mouth ? Sleepiness and dizziness ? Confusion ? Depression ? Low levels of testosterone that can result in lower sex drive, energy, and strength ? Itching and sweating RISKS ARE GREATER WITH: ? History of drug misuse, substance use disorder, or overdose ? Mental health conditions (such as depression or anxiety) ? Sleep apnea ? Older age (65 years and older) ? Avoid alcohol while taking prescription opioids. Also, unless specifically advised by your health care provider, medications to avoid include: ? Benzodiazepines (such as Xanax or Valium) ? Muscle relaxants (such as Soma or Flexeril) ? Hypnotics (such as Ambien or Lunesta) ? Other prescription opioids KNOW YOUR OPTIONS Talk to your health care provider about ways to manage your pain that don?t involve prescription opioids. Some of these options may actually work better and have fewer risks and side effects. Options may include: ? Pain relievers such as acetaminophen, ibuprofen, and naproxen ? Some medication that are also used for depression or seizures ? Physical therapy and exercise ? Cognitive behavioral therapy, a psychological, goal-directed approach, in which patients learn how to modify physical, behavioral, and emotional triggers of pain and stress. IF YOU ARE PRESCRIBED OPIOIDS FOR PAIN: ? Never take opioids in greater amounts or more often than prescribed. ? Follow up with your primary health care provider. o Work together to create a plan on how to manage your pain. o Talk about ways to help manage your pain that don?t involve prescription opioids. o Talk about any and all concerns and side effects. ? Help prevent misuse and abuse o Never sell or share prescription opioids. o Never use another person?s prescription opioids. ? Store prescription opioids in a secure place and out of reach of others (this may include visitors, children, friends, and family). ? Safely dispose of unused prescription opioids: Find your community drug take-back program or your pharmacy mail-back program, or flush them down the toilet, following guidance from the Food and Drug Administration (www.fda.gov/Drugs/Resourc esForYou). ? Visit www.cdc.gov/drugoverdose to learn about the risks of opioids abuse and overdose. ? If you believe you may be struggling with ad (more content not included)... [facility] Prescriptions/Work Noteson 0 06-20-2021 Prescriptions/Work Notes [id number]:127 [facility] XR Chest 2 Viewson XR Chest 2 Views Exam Date/Time: 06/20/2021 17:30 EDT Reason for Exam: Cough Report IMPRESSION: THERE ARE NO ACUTE CARDIOPULMONARY CHANGES. CLINICAL HISTORY: Cough COMPARISON: NONE. FINDINGS: The cardiomediastinal silhouette is unremarkable. The lungs are free of infiltrates effusions or consolidations. The bones and soft tissues are within normal limits. FINAL REPORT Dictated: 06/20/2021 5:37 pm Shan Lange MD, V. Signed (Electronic Signature): 06/20/2021 5:37 pm Signed by: Shan Lange MD, V. Transcribed by: NORMA Technologist: BARBI [facility] Vital Signs Date Time Vital Sign Value Performing Clinician Neela west 10-03-2024 16:29-0500 Body temperature 97.8 [degF] [facility] Work Phone: [facility] 10-03-2024 16:29-0500 Diastolic blood pressure 88 mm[Hg] [facility] Work Phone: [facility] 10-03-2024 16:29-0500 Heart rate 96 /min [facility] Work Phone: [facility] 10-03-2024 16:29-0500 Respiratory rate 18 /min [facility] Work Phone: [facility] 10-03-2024 16:29-0500 SaO2% (BldA) [Mass fraction] 97 % [facility] Work Phone: [facility] 10-03-2024 16:29-0500 Systolic blood pressure 158 mm[Hg] [facility] Work Phone: [facility] 10-03-2024 11:01-0500 Inhaled oxygen flow rate 3 L/min [facility] Work Phone: [facility] 10-03-2024 04:23-0500 Body weight 81.5 kg [facility] Work Phone: [facility] 10-01-2024 16:41-0500 Inhaled oxygen flow rate 2 L/min [facility] Work Phone: [facility] 10-01-2024 16:40-0500 Body height 172.72 cm [facility] Work Phone: [facility] 10-01-2024 16:40-0500 Body temperature 97.4 [degF] [facility] Work Phone: [facility] 10-01-2024 16:40-0500 Body weight 110.5 kg [facility] Work Phone: [facility] 10-01-2024 16:40-0500 Diastolic blood pressure 108 mm[Hg] [facility] Work Phone: [facility] 10-01-2024 16:40-0500 Heart rate 88 /min [facility] Work Phone: [facility] 10-01-2024 16:40-0500 Respiratory rate 22 /min [facility] Work Phone: [facility] 10-01-2024 16:40-0500 SaO2% (BldA) [Mass fraction] 92 % [facility] Work Phone: [facility] 10-01-2024 16:40-0500 Systolic blood pressure 152 mm[Hg] [facility] Work Phone: [facility] 02-08-2024 11:54-0400 Body height 172.72 cm [facility] Work Phone: [facility] 02-08-2024 11:54-0400 Body temperature 97.7 [degF] [facility] Work Phone: [facility] 02-08-2024 11:54-0400 Body weight 116.8 kg [facility] Work Phone: [facility] 02-08-2024 11:54-0400 Diastolic blood pressure 95 mm[Hg] [facility] Work Phone: [facility] 02-08-2024 11:54-0400 Heart rate 96 /min [facility] Work Phone: [facility] 02-08-2024 11:54-0400 Respiratory rate 20 /min [facility] Work Phone: [facility] 02-08-2024 11:54-0400 SaO2% (BldA) [Mass fraction] 98 % [facility] Work Phone: [facility] 02-08-2024 11:54-0400 Systolic blood pressure 167 mm[Hg] [facility] Work Phone: [facility] Encounters Encounter Date Encounter Type Care Provider Facility Start: 10-01-2024 End: 10-03-2024 Evaluation and management of inpatient Services [facility] Work Phone: [facility] Work Phone: Start: 09-03-2024 End: 09-03-2024 Patient encounter procedure Services [facility] Work Phone: [facility] [place] Work Phone: Start: 09-03-2024 End: 09-03-2024 ambulatory Services [facility] Work Phone: [facility] Work Phone: Start: 09-03-2024 Encounter for other specified special examinations Gagandeep Bernard [facility] Start: 02-08-2024 End: 02-08-2024 Emergency department patient visit Services [facility] Work Phone: [facility] Work Phone: Start: 01-24-2022 End: 01-24-[address] DOCTOR BETTENCOURT Facility:[facility] Start: 01-22-2022 End: 01-22-[address] ZOYA LAW Facility:[facility] Procedures Date Procedure Procedure Detail Performing Clinician Start: 10-01-2024 Viral nucleic acid assay Services [facility] Work Phone: Start: 10-01-2024 CT angiography of thorax Services [facility] Work Phone: Start: 10-01-2024 Plain chest X-ray Servi lisa [facility] Work Phone: Start: 02-08-2024 X-ray of ring finger Se [facility]ices [facility] Work Phone: Plan of Treatment Date Care Activity Detail Author Start: 10-03-2024 [facility] Start: 10-01-2024 [facility] Start: 10-01-2024 Microbial culture of sputum [facility] Start: 10-01-2024 Hospital admission [facility] Start: 10-01-2024 Bacteria identified in Blood by Culture Blood Culture [facility] Start: 10-01-2024 [facility] Patient Education [facility] Work Phone: Patient referral [facility] Work Phone: Payers Date Payer Category Payer Medicaid [id number] 93 [id number] 2024 Self-pay [id number] 1990 Unknown [id number] [id number] 1990 Unknown [id number] [id number] [id number] 1957 Self-pay [id number] Unknown [id number] 2.16.8 [id number] Unknown [id number] 2.16.8 [id number] Unknown [id number] 2.16.8 [id number] Social History Date Type Detail Facility Start: 02-08-2024 Tobacco smoking status DCIS Ex-smoker (finding) [facility] Start: 1990 Sex [address] Female [facility] Start: 10-01-2024 End: 10-01-2024 Tobacco smoking status NHIS Smoker (finding) [facility] Start: 10-01-2024 End: 10-03-2024 Sex Female (finding) [facility] NEGATED: Highlighted row [facility] Medical Equipment Procedure Code Equipment Code Equipment Origin al Text Equipment Identifier Dates Blood Sugar Diagnostic strip Start: 10-03-2024 Lancets misc Start: 10-03-2024 Pen Needle, Diab etic (Bd Ultra-Fine Mini Pen Needle) 31 gauge x 3/16 needle Start: 10-03-2024 Goals Date Patient Goal Desired Activity /State Functional Status Date Assessment Result Facility 10-03-2024 Functional status Patient at Baseline [facility] Work Phone: 10-01-2024 Functional status Patient at Baseline [facility] Work Phone: Mental Status Date Assessment Result Facility 10-03-2024 Cognitive function Cognitive Sta tus Patient at Baseline [facility] Work Phone: 10-01-2024 Cognitive function Cognitive Sta tus Patient at Baseline [facility] Work Phone: Progress note 10-02-2024 Note Date & Type Note Facility 10-02-2024 Progress note Note Date/Time October 02, 2024 1:10pm [facility] [address] [place] [address] Hospitalist Progress Note Signed Patient: Stephanie Zayas MR#: [id number] : 1990 Acct:[id number] Age/Sex: 34 / F Adm Date: 4 Loc: Room: [address] [place] [address] Type: ADM IN Attending Dr: Brayan Calderón MD Copies to: ~ Date of Service: 10/02/2024 Subjective Subjective Narrative: Patient is feeling a bit better than yesterday. Shortness of breath is improvedalthough she still requires oxygen 3 L nasal cannula to maintain an oxygen saturation below 91% Lungs minimal rhonchi bilaterally. Minimal wheezing. Heart regular Abdomen soft Neurological nonfocal Assessment and plan 1. Acute bronchitis, asthma exacerbation, acute hypoxic respiratory failure Continue steroid therapy systemically Continue bronchodilators, Mucinex, azithromycin orally. 2. Diabetes type 2 with steroid-induced hyperglycemia Continue corrective scale insulin DVT prophylaxis Xarelto Anticipate discharge home tomorrow Exam Physical Exam Vital Signs: Temp Pulse Resp BP Pulse Ox O2 Del Method O2 Flow Rate 98.4 F 107 H 20 133/89 91 L Nasal Cannula 3 10/02/24 11:26 10/02/24 12:49 10/02/24 12:49 10/02/24 11:26 10/02/24 11:26 10/02/24 11:29 10/02/24 11:29 Objective Lab Results 10/02/24 06:18 10/01/24 12:10 Microbiology Results Microbiology 10/01/24 12:10 Nasopharyngeal SARS-CoV-2, Influenza & RSV (PCR) - Final Meds Allergies and Active Meds Allergies No Known Allergies Allergy (Verified 10/01/24 11:40) Active Meds: Active Medications Generic Name Dose Route Start Last Admin Trade Name Sandra PRN Reason Stop Dose Admin Acetaminophen 1,000 mg 10/01/24 15:56 10/02/24 06:48 Acetaminophen 500 Mg Tablet PO 10/01/25 15:55 1,000 mg Q6H PRN Administration Fever or Pain Albuterol/Ipratropium 3 ml 10/01/24 16:00 10/02/24 12:48 Ipratropium/Albuterol 0.5-3 Mg 3 Ml Ampul.Neb INHALATION 10/01/25 15:59 3 ml Q4H MAGGIE Administration Azithromycin 500 mg 10/02/24 09:00 10/02/24 09:06 Azithromycin 250 Mg Tablet PO 500 mg DAILY MAGGIE Administration Escitalopram Oxalate 20 mg 10/02/24 09:00 10/02/24 09:06 Escitalopram 20 Mg Tablet PO 10/02/25 08:59 20 mg DAILY MAGGIE Administration Guaifenesin 1,200 mg 10/01/24 21:00 10/02/24 09:06 Guaifenesin 600 Mg Tab.Er.12h PO 10/01/25 20:59 1,200 mg BID MAGGIE Administration Insulin Aspart 0 units 10/01/24 17:00 10/02/24 11:13 Insulin Aspart 300 Units/3 Ml Insuln.Pen SUBCUT 10/01/25 16:59 2 units TID.WM.HS MAGGIE Administration Protocol Methylprednisolone 32 mg 10/01/24 21:00 10/02/24 09:05 Methylprednisolone 16 Mg Tablet PO 10/01/25 20:59 32 mg BID MAGGIE Administration Norgestimate-Ethinyl 1 tab 10/02/24 12:00 10/02/24 11:13 Estradiol [Tri-Lo- PO 10/02/25 11:59 1 tab Estarylla] 0.18/0. DAILY MAGGIE Administration 215/0.25 Mg-25 Mcg Prochlorperazine Edisylate 10 mg 10/02/24 11:28 Prochlorperazine Edisylate 10 Mg/2 Ml Vial IV-PUSH 10/02/25 11:27 Q4H PRN Nausea And Vomiting Rivaroxaban 10 mg 10/02/24 09:00 10/02/24 09:06 Rivaroxaban 10 Mg Tablet PO 10/02/25 08:59 10 mg DAILY MAGGIE Administration Sodium Chloride 0 ml 10/01/24 11:43 10/01/24 14:16 Sodium Chloride 0.9 % 10 Ml Syringe IV-PUSH 10/01/25 11:42 10 ml PRN PRN Administration Flush Trazodone HCl 100 mg 10/01/24 22:00 10/01/24 22:27 Trazodone 100 Mg Tablet PO 10/01/25 21:59 100 mg QHS MAGGIE Administration A&P - Hospitalist Assessment/Plan (1) Acute bronchitis: (2) Acute hypoxemic respiratory failure: Plan as above Documented By: Brayan Calderón MD 10/02/24 1309 Signed By: <Electronically signed by Brayan Calderón MD> 10/02/24 1310 [facility] Work Phone: History and physical note 10-02-2024 Note Date & Type Note Facility 10-02-2024 History and physi phoebe note Note Date/Time October 02, 2024 1:09pm [facility] [address] [place] [address] Hospitalist H&P Signed Patient: Stephanie Zayas MR#: [id number] : 1990 Acct:[id number] Age/Sex: 34 / F Adm Date: 4 Loc: Room: [address] [place] [address] Type: ADM IN Attending Dr: Brayan Calderón MD Copies to: Brayan Calderón MD [facility] Milady Jay MD, RES~ HPI DATE OF EXAMINATION: 10/01/24 CHIEF COMPLAINT: shortness of breath HISTORY OF PRESENT ILLNESS: ====== Attending note: I saw the patient personally on the day of encounter. I reviewed the relevant history, and performed the ambrocio elements of the physical examination. I reviewedthe relevant laboratory workup, radiological studies and the current treatment plan. I formulated the plan of care and confirmed it with the resident/student/CONVERTIBLE TOP INSTALLER. ====== Ms. Stephanie Zayas is a?34F with a PMHx of asthma-like symptoms without formal diagnosis and current every day smoker who presented to ED with shortness of breath. On presentation, she was saturating as low as 87% on room air. ED course significant for PE workup with negative CTA, and CXR is negative for cardiopulmonary pathology. Solumedrol, azithromycin, and Rocephin were administered and pt was placed on nasal cannula. Initial labwork reveals leukocytosis. Pt is admitted to the floor for bronchitis and hypoxia. Pt states she's been taking Mucinex for a couple weeks for respiratory symptoms that haven't improved. She noticed a change in mucus today to darker green. Shehas a persistent cough that is worse at nighttime. Endorses sinus congestion without headache. She does not have a formal asthma diagnosis but does have a rescue inhaler. Recently, she's been using her albuterol inhaler every time she experiences shortness of breath, which is reportedly more times than she can keep count in aday. She reports associated sweating recently. GENERAL: oriented, appears stated age, laying with wet towel over head and eyes HEENT: NC/AT, hirsutism CARDIOVASCULAR: Regular rate and regular rhythm, no murmurs, symmetric palpable radial pulses RESPIRATORY: nonlabored work of breathing on 2L NC, diffuse wheeze and rhonchi, symmetric chest rise ABDOMEN: Soft, non-tender, non-distended, normal bowel sounds BACK: No midline or paraspinal tenderness EXTREMITIES: moving all extremities well. Well-perfused. Sensation intact. No edema SKIN: Intact, no rash, no trauma NEURO: Cranial nerves grossly intact, no focal neurologic signs PSYCHIATRIC: appropriate mood and affect, cooperative Acute problems: Hypoxia, bronchitis -Continue supplemental oxygen as needed -Daily methylprednisolone 32mg -DuoNebs q4h -Mucinex 1200mg BID -Continue daily Azithromycin 500mg -Monitor blood sugar while on steroids -Blood culture pending -Sputum culture pending collection HTN--likely secondary to discomfort and inappropriate albuterol use -Continue to monitor Chronic conditions requiring attention while inpatient: continue home meds unless otherwise listed below. Additional plans below. -insomnia: trazodone 100mg -Depression: home lexapro 20mg DVT PPx: Xarelto 10mg Diet: Carb Consistent CODE STATUS: FULL CODE Dispo: Admit to Med-surg Plan of care Discussed with:?the medical team, the patient Review of Systems Review of Systems All other systems reviewed & are negative unless noted below or in HPI [facility] Medical History (Updated 10/01/24 @ 14:07 by Alec Antoine DO) No pertinent past medical history Surgical History No pertinent past surgical history Social History Smoking Status: Current every day smoker Tobacco Type: e-cigarettes Substance Use Type: Marijuana Meds Medications and Allergies Allergies No Known Allergies Allergy (Verified 10/01/24 11:40) Home Medications albuterol sulfate 90 mcg/actuation aerosol inhaler 1 puff inhalation Q4H PRN shortness of breath or wheezing 10/01/24 [History Confirmed 10/01/24] dulaglutide 0.75 mg/0.5 mL subcutaneous pen injector (Trulicity) 0.75 mg subcut TU@0900 10/01/24 [History Confirmed 10/01/24] escitalopram oxalate 20 mg tablet 20 mg PO DAILY 10/01/24 [History Confirmed 10/01/24] hydroxyzine pamoate 25 mg capsule 25 mg PO TID PRN anxiety 10/01/24 [History Confirmed 10/01/24] norgestimate 0.18 mg/0.215 mg/0.25 mg-ethinyl estradiol 25 mcg tablet (Mac-Ip-Jdsdqsphl) 1 tab PO DAILY 10/01/24 [History Confirmed 10/01/24] trazodone 50 mg tablet 50 mg PO QHS PRN sleep 10/01/24 [History Confirmed 10/01/24] Exam Physical Exam Vital Signs: Temp Pulse Resp BP Pulse Ox O2 Del Method O2 Flow Rate 97.4 F L 88 22 162/96 H 92 L Nasal Cannula 2 10/01/24 16:40 10/01/24 16:40 10/01/24 16:40 10/01/24 17:43 10/01/24 16:40 10/01/24 16:41 10/01/24 16:41 Results - Hospitalist H&P Lab Results Labs: Laboratory Last Values Corrected WBC 18.1 X10E3/uL (3.8-11.6) H 10/01/24 12:10 Uncorrected WBC Count 18.1 x10E3/uL (3.8-11.6) H 10/01/24 12:10 RBC 4.77 X10E6/uL (3.60-5.00) 10/01/24 12:10 Hgb 14.4 g/dL (11.8-15.4) 10/01/24 12:10 Hct 40.9 % (34.0-46.4) 10/01/24 12:10 MCV 85.8 fl (80-100) 10/01/24 12:10 MCH 30.3 pg (24.7-34.3) 10/01/24 12:10 MCHC 35.3 g/dL (32.0-35.0) H 10/01/24 12:10 RDW 12.9 % (11.9-15.3) 10/01/24 12:10 Plt Count 423 x10E3/uL (150-450) 10/01/24 12:10 MPV 6.1 fl (6.3-10.7) L 10/01/24 12:10 Neut % (Auto) 72.6 % (.) 10/01/24 12:10 Lymph % (Auto) 13.6 % (.) 10/01/24 12:10 [place] % (Auto) 7.2 % (.) 10/01/24 12:10 Eos % (Auto) 5.8 % (.) 10/01/24 12:10 Baso % (Auto) 0.8 % (.) 10/01/24 12:10 Nucleat RBC Rel Count 0.1 /100 WBC (0-0.5) 10/01/24 12:10 Neut # (Auto) 13.1 x10E3/uL (1.8-7.7) H 10/01/24 12:10 Lymph # (Auto) 2.5 x10E3/uL (1.00-4.8) 10/01/24 12:10 [place] # (Auto) 1.3 x10E3/uL (0.0-0.8) H 10/01/24 12:10 Eos # (Auto) 1.1 x10E3/uL (0.0-0.45) H 10/01/24 12:10 Baso # (Auto) 0.1 x10E3/uL (0.0-0.2) 10/01/24 12:10 Monocyte Dist Width 18.16 % (0.00-20.00) 10/01/24 12:10 PT 11.8 Seconds (9.0-12.9) 10/01/24 12:10 INR 1.0 10/01/24 12:10 APTT 33.7 Seconds (25.1-36.5) 10/01/24 12:10 PHA Creatinine Clear 176.33 10/01/24 12:10 Sodium 135 mmol/L (136-145) L 10/01/24 12:10 Potassium 3.9 mmol/L (3.5-5.1) 10/01/24 12:10 Chloride 102 mmol/L (98-107) 10/01/24 12:10 Carbon Dioxide 22.4 mmol/L (21.0-31.0) 10/01/24 12:10 Anion Gap 14.5 mEq/L (6.0-15.0) 10/01/24 12:10 BUN 10 mg/dL (7-25) 10/01/24 12:10 Creatinine 0.60 mg/dL (0.60-1.20) 10/01/24 12:10 Est GFR (CKD-EPI) > 60.0 mL/Min 10/01/24 12:10 Glucose 220 mg/dL (70-100) H 10/01/24 12:10 POC Glucose 199 mg/dl 10/01/24 16:56 Lactic Acid 2.1 mmol/L (0.5-2.2) H* 10/01/24 17:55 Calcium 9.3 mg/dL (8.6-10.3) 10/01/24 12:10 Magnesium 1.7 mg/dL (1.9-2.7) L 10/01/24 12:10 Total Bilirubin 0.5 mg/dl (0.3-1.0) 10/01/24 12:10 AST 23 U/L (13-39) 10/01/24 12:10 ALT 40 U/L (7-52) 10/01/24 12:10 Alkaline Phosphatase 78 U/L (34-104) 10/01/24 12:10 Total Creatine Kinase 147 U/L (30-223) 10/01/24 12:10 Troponin I High Sens 2.9 pg/mL (0.0-15.0) 10/01/24 12:10 B-Natriuretic Peptide 22.0 pg/mL (5-100) 10/01/24 12:10 Total Protein 8.0 gm/dL (6.4-8.9) 10/01/24 12:10 Albumin 4.7 gm/dL (3.5-5.7) 10/01/24 12:10 Globulin 3.3 gm/dL 10/01/24 12:10 Albumin/Globulin Ratio 1.4 10/01/24 12:10 Urine Color Light-yellow (Yellow) 10/01/24 14:16 Urine Appearance Clear (Clear) 10/01/24 14:16 Urine pH 6.0 (5.0-9.0) 10/01/24 14:16 Ur Specific [place] 1.028 (1.001-1.030) 10/01/24 14:16 Urine Protein 30 mg/dL (Negative) H 10/01/24 14:16 Urine Glucose (UA) 300 mg/dL (Normal) H 10/01/24 14:16 Urine Ketones Negative (Negative) 10/01/24 14:16 Urine Occult Blood Negative (Negative) 10/01/24 14:16 Urine Nitrite Negative (Negative) 10/01/24 14:16 Urine Bilirubin Negative (Negative) 10/01/24 14:16 Urine Urobilinogen Normal mg/dL (Normal) 10/01/24 14:16 Ur Leukocyte Esterase Negative (Negative) 10/01/24 14:16 Urine RBC None seen /HPF (0-4) 10/01/24 14:16 Urine WBC 1-2 /HPF (0-4) 10/01/24 14:16 Ur Squamous Epith Cells 1-2 /HPF (0-2) 10/01/24 14:16 Urine Bacteria None seen /HPF (None Seen) 10/01/24 14:16 Hyaline Casts None /LPF (0-8) 10/01/24 14:16 SARS-CoV-2 Rap RNA(RT-PCR) Negative (Negative) 10/01/24 12:10 Microbiology Results Micro: Microbiology - Results from entire visit 10/01/24 12:10 Nasopharyngeal SARS-CoV-2, Influenza & RSV (PCR) - Final Assessment & Plan Assessment/Plan (1) Acute bronchitis: (2) Acute hypoxemic respiratory failure: Plan as above IP vs OBS Justification Based on differential dx, clinical care plan, and risk of adverse events, if untreated, in my clinical judgement this patient requires an acute care setting as: INPATIENT because of an expectation of an over 2 midnight stay. Estimated length of stay (# of days): 2 Documented By: Brayan Calderón MD 10/01/24 1821 Signed By: <Electronically signed by Brayan Calderón MD> 10/02/24 1309 <Electronically signed by MD BART Jay> 10/01/24 1905 [facility] Work Phone: Progress note 10-02-2024 Note Date & Type Note Facility 10-02-2024 Progress note [facility] enter History and physical note 10-02-2024 Note Date & Type Note Facility 10-02-2024 History and physi phoebe note [facility] enter Evaluation note 10-01-2024 Note Date & Type Note Facility 10-01-2024 Evaluation note Diagnosis Onset Date Resolution Acute bronchitis acute October 01, 2024 2:29pm Acute hypoxemic respiratory failure acute September 2:29pm [facility] Work Phone: Radiology Diagnostic study note 10-01-2024 Note Date & Type Note Facility 10-01-2024 Radiology Diagnostic study note [place] [address] CT Scan Report Signed Patient: Stephanie Zayas MR#: [id number] : 1990 Acct:[id number] Age/Sex: 34 / F ADM Date: 4 Loc: ER Room: Type: [facility] ER Attending Dr: Copies to: Alec Antoine DO~ Ordering Provider: Alec Antoine DO Date of Service: 10/01/24 CT/CT angio chest PE protocol: dyspnea CT PULMONARY ANGIOGRAM WITH CONTRAST CLINICAL HISTORY: Cough and shortness of breath COMPARISON: None TECHNIQUE: Spiral images were obtained through the chest following intravenous administration of 90 mL of Isovue 370. Images were reviewed using both narrow and wide window settings. Sagittal, coronal and 3 D volume-rendered reconstructions were performed and reviewed. This CT exam was performed using one or more following dose reduction techniques: Automated exposure control, adjustment of the mA and/or kV according to patient size, or use of iterative reconstruction technique. FINDINGS: The heart is not enlarged. There is no pericardial effusion. No aortic aneurysm or dissection is seen. There is adequate opacification of the pulmonary arteries. There is some respiratory motion. No definite urinary emboli are identified. A few small nonpathologic mediastinal lymph nodes are present. There is minor endplate spurring at the spine. Respiratory motion slightly limits evaluation of the lung parenchyma. There is no infiltrate, effusion or pneumothorax. The tiny left lower lobe nodular density adjacent to the major fissure may be an intrapulmonary lymph node. Limited cuts through the upper abdomen show possible fatty liver. There is a tiny low-density left adrenal nodule and mild thickening of the adrenal limbs. CT/CT angio chest PE protocol IMPRESSION: NO OBVIOUS PULMONARY EMBOLISM WITHIN LIMITS OF RESPIRATORY MOTION. NO ACUTE INTRATHORACIC FINDINGS. Impression dictated by: Kati Mckeon M.D.10/01/2024 1:55 PM Dictation Location: [place] [address] Transcribed By: [facility] 10/01/24 1355 Dictated By: Kati Mckeon MD 10/01/24 1347 Signed By: 10/01/[address] [facility] Work Phone: Evaluation note Note Date & Type Note Facility Evaluation note No assessment information availa [facility] Work Phone: History and physical note Note Date & Type Note Facility History and physical note Note Date/Time October 02, 2024 1:09pm [facility] [address] [place] [address] Hospitalist H&P Signed Patient: Stephanie Zayas MR#: [id number] : 1990 Acct:[id number] Age/Sex: 34 / F Adm Date: 4 Loc: 3T Room: [address] [place] [address] Type: ADM IN Attending Dr: Brayan aClderón MD Copies to: Brayan Calderón MD [facility] Milady Jay MD, RES~ HPI DATE OF EXAMINATION: 10/01/24 CHIEF COMPLAINT: shortness of breath HISTORY OF PRESENT ILLNESS: ====== Attending note: I saw the patient personally on the day of encounter. I reviewed the relevant history, and performed the ambrocio elements of the physical examination. I reviewedthe relevant laboratory workup, radiological studies and the current treatment plan. I formulated the plan of care and confirmed it with the resident/student/CONVERTIBLE TOP INSTALLER. ====== Ms. Stephanie Zayas is a?34F with a PMHx of asthma-like symptoms without formal diagnosis and current every day smoker who presented to ED with shortness of breath. On presentation, she was saturating as low as 87% on room air. ED course significant for PE workup with negative CTA, and CXR is negative for cardiopulmonary pathology. Solumedrol, azithromycin, and Rocephin were administered and pt was placed on nasal cannula. Initial labwork reveals leukocytosis. Pt is admitted to the floor for bronchitis and hypoxia. Pt states she's been taking Mucinex for a couple weeks for respiratory symptoms that haven't improved. She noticed a change in mucus today to darker green. Shehas a persistent cough that is worse at nighttime. Endorses sinus congestion without headache. She does not have a formal asthma diagnosis but does have a rescue inhaler. Recently, she's been using her albuterol inhaler every time she experiences shortness of breath, which is reportedly more times than she can keep count in aday. She reports associated sweating recently. GENERAL: oriented, appears stated age, laying with wet towel over head and eyes HEENT: NC/AT, hirsutism CARDIOVASCULAR: Regular rate and regular rhythm, no murmurs, symmetric palpable radial pulses RESPIRATORY: nonlabored work of breathing on 2L NC, diffuse wheeze and rhonchi, symmetric chest rise ABDOMEN: Soft, non-tender, non-distended, normal bowel sounds BACK: No midline or paraspinal tenderness EXTREMITIES: moving all extremities well. Well-perfused. Sensation intact. No edema SKIN: Intact, no rash, no trauma NEURO: Cranial nerves grossly intact, no focal neurologic signs PSYCHIATRIC: appropriate mood and affect, cooperative Acute problems: Hypoxia, bronchitis -Continue supplemental oxygen as needed -Daily methylprednisolone 32mg -DuoNebs q4h -Mucinex 1200mg BID -Continue daily Azithromycin 500mg -Monitor blood sugar while on steroids -Blood culture pending -Sputum culture pending collection HTN--likely secondary to discomfort and inappropriate albuterol use -Continue to monitor Chronic conditions requiring attention while inpatient: continue home meds unless otherwise listed below. Additional plans below. -insomnia: trazodone 100mg -Depression: home lexapro 20mg DVT PPx: Xarelto 10mg Diet: Carb Consistent CODE STATUS: FULL CODE Dispo: Admit to Med-surg Plan of care Discussed with:?the medical team, the patient Review of Systems Review of Systems All other systems reviewed & are negative unless noted below or in HPI [facility] Medical History (Updated 10/01/24 @ 14:07 by Alec Antoine DO) No pertinent past medical history Surgical History No pertinent past surgical history Social History Smoking Status: Current every day smoker Tobacco Type: e-cigarettes Substance Use Type: Marijuana Meds Medications and Allergies Allergies No Known Allergies Allergy (Verified 10/01/24 11:40) Home Medications albuterol sulfate 90 mcg/actuation aerosol inhaler 1 puff inhalation Q4H PRN shortness of breath or wheezing 10/01/24 [History Confirmed 10/01/24] dulaglutide 0.75 mg/0.5 mL subcutaneous pen injector (Trulicity) 0.75 mg subcut TU@0900 10/01/24 [History Confirmed 10/01/24] escitalopram oxalate 20 mg tablet 20 mg PO DAILY 10/01/24 [History Confirmed 10/01/24] hydroxyzine pamoate 25 mg capsule 25 mg PO TID PRN anxiety 10/01/24 [History Confirmed 10/01/24] norgestimate 0.18 mg/0.215 mg/0.25 mg-ethinyl estradiol 25 mcg tablet (Pvm-Vm-Ofwrrvnbe) 1 tab PO DAILY 10/01/24 [History Confirmed 10/01/24] trazodone 50 mg tablet 50 mg PO QHS PRN sleep 10/01/24 [History Confirmed 10/01/24] Exam Physical Exam Vital Signs: Temp Pulse Resp BP Pulse Ox O2 Del Method O2 Flow Rate 97.4 F L 88 22 162/96 H 92 L Nasal Cannula 2 10/01/24 16:40 10/01/24 16:40 10/01/24 16:40 10/01/24 17:43 10/01/24 16:40 10/01/24 16:41 10/01/24 16:41 Results - Hospitalist H&P Lab Results Labs: Laboratory Last Values Corrected WBC 18.1 X10E3/uL (3.8-11.6) H 10/01/24 12:10 Uncorrected WBC Count 18.1 x10E3/uL (3.8-11.6) H 10/01/24 12:10 RBC 4.77 X10E6/uL (3.60-5.00) 10/01/24 12:10 Hgb 14.4 g/dL (11.8-15.4) 10/01/24 12:10 Hct 40.9 % (34.0-46.4) 10/01/24 12:10 MCV 85.8 fl (80-100) 10/01/24 12:10 MCH 30.3 pg (24.7-34.3) 10/01/24 12:10 MCHC 35.3 g/dL (32.0-35.0) H 10/01/24 12:10 RDW 12.9 % (11.9-15.3) 10/01/24 12:10 Plt Count 423 x10E3/uL (150-450) 10/01/24 12:10 MPV 6.1 fl (6.3-10.7) L 10/01/24 12:10 Neut % (Auto) 72.6 % (.) 10/01/24 12:10 Lymph % (Auto) 13.6 % (.) 10/01/24 12:10 [place] % (Auto) 7.2 % (.) 10/01/24 12:10 Eos % (Auto) 5.8 % (.) 10/01/24 12:10 Baso % (Auto) 0.8 % (.) 10/01/24 12:10 Nucleat RBC Rel Count 0.1 /100 WBC (0-0.5) 10/01/24 12:10 Neut # (Auto) 13.1 x10E3/uL (1.8-7.7) H 10/01/24 12:10 Lymph # (Auto) 2.5 x10E3/uL (1.00-4.8) 10/01/24 12:10 [place] # (Auto) 1.3 x10E3/uL (0.0-0.8) H 10/01/24 12:10 Eos # (Auto) 1.1 x10E3/uL (0.0-0.45) H 10/01/24 12:10 Baso # (Auto) 0.1 x10E3/uL (0.0-0.2) 10/01/24 12:10 Monocyte Dist Width 18.16 % (0.00-20.00) 10/01/24 12:10 PT 11.8 Seconds (9.0-12.9) 10/01/24 12:10 INR 1.0 10/01/24 12:10 APTT 33.7 Seconds (25.1-36.5) 10/01/24 12:10 PHA Creatinine Clear 176.33 10/01/24 12:10 Sodium 135 mmol/L (136-145) L 10/01/24 12:10 Potassium 3.9 mmol/L (3.5-5.1) 10/01/24 12:10 Chloride 102 mmol/L (98-107) 10/01/24 12:10 Carbon Dioxide 22.4 mmol/L (21.0-31.0) 10/01/24 12:10 Anion Gap 14.5 mEq/L (6.0-15.0) 10/01/24 12:10 BUN 10 mg/dL (7-25) 10/01/24 12:10 Creatinine 0.60 mg/dL (0.60-1.20) 10/01/24 12:10 Est GFR (CKD-EPI) > 60.0 mL/Min 10/01/24 12:10 Glucose 220 mg/dL (70-100) H 10/01/24 12:10 POC Glucose 199 mg/dl 10/01/24 16:56 Lactic Acid 2.1 mmol/L (0.5-2.2) H* 10/01/24 17:55 Calcium 9.3 mg/dL (8.6-10.3) 10/01/24 12:10 Magnesium 1.7 mg/dL (1.9-2.7) L 10/01/24 12:10 Total Bilirubin 0.5 mg/dl (0.3-1.0) 10/01/24 12:10 AST 23 U/L (13-39) 10/01/24 12:10 ALT 40 U/L (7-52) 10/01/24 12:10 Alkaline Phosphatase 78 U/L (34-104) 10/01/24 12:10 Total Creatine Kinase 147 U/L (30-223) 10/01/24 12:10 Troponin I High Sens 2.9 pg/mL (0.0-15.0) 10/01/24 12:10 B-Natriuretic Peptide 22.0 pg/mL (5-100) 10/01/24 12:10 Total Protein 8.0 gm/dL (6.4-8.9) 10/01/24 12:10 Albumin 4.7 gm/dL (3.5-5.7) 10/01/24 12:10 Globulin 3.3 gm/dL 10/01/24 12:10 Albumin/Globulin Ratio 1.4 10/01/24 12:10 Urine Color Light-yellow (Yellow) 10/01/24 14:16 Urine Appearance Clear (Clear) 10/01/24 14:16 Urine pH 6.0 (5.0-9.0) 10/01/24 14:16 Ur Specific [place] 1.028 (1.001-1.030) 10/01/24 14:16 Urine Protein 30 mg/dL (Negative) H 10/01/24 14:16 Urine Glucose (UA) 300 mg/dL (Normal) H 10/01/24 14:16 Urine Ketones Negative (Negative) 10/01/24 14:16 Urine Occult Blood Negative (Negative) 10/01/24 14:16 Urine Nitrite Negative (Negative) 10/01/24 14:16 Urine Bilirubin Negative (Negative) 10/01/24 14:16 Urine Urobilinogen Normal mg/dL (Normal) 10/01/24 14:16 Ur Leukocyte Esterase Negative (Negative) 10/01/24 14:16 Urine RBC None seen /HPF (0-4) 10/01/24 14:16 Urine WBC 1-2 /HPF (0-4) 10/01/24 14:16 Ur Squamous Epith Cells 1-2 /HPF (0-2) 10/01/24 14:16 Urine Bacteria None seen /HPF (None Seen) 10/01/24 14:16 Hyaline Casts None /LPF (0-8) 10/01/24 14:16 SARS-CoV-2 Rap RNA(RT-PCR) Negative (Negative) 10/01/24 12:10 Microbiology Results Micro: Microbiology - Results from entire visit 10/01/24 12:10 Nasopharyngeal SARS-CoV-2, Influenza & RSV (PCR) - Final Assessment & Plan Assessment/Plan (1) Acute bronchitis: (2) Acute hypoxemic respiratory failure: Plan as above IP vs OBS Justification Based on differential dx, clinical care plan, and risk of adverse events, if untreated, in my clinical judgement this patient requires an acute care setting as: INPATIENT because of an expectation of an over 2 midnight stay. Estimated length of stay (# of days): 2 Documented By: Brayan Calderón MD 10/01/24 1821 Signed By: <Electronically signed by Brayan Calderón MD> 10/02/24 1309 <Electronically signed by MD BART Jay> 10/01/24 190 [facility] Work Phone: Hospital Discharge instructions Note Date & Type Note Facility Hospital Discharge instructions Additional Instructions Monitor glucose levels before meals and at bedtime while on steroids. Keep a record of these and take it with you to your follow-up appointment. [facility] Work Phone: Progress note Note Date & Type Note Facility Progress note Note Date/Time October 02, 2024 1:10pm [facility] [address] [place] [address] Hospitalist Progress Note Signed Patient: Stephanie Zayas MR#: [id number] : 1990 Acct:[id number] Age/Sex: 34 / F Adm Date: 4 Loc: 3T Room: [address] [place] [address] Type: ADM IN Attending Dr: Brayan Calderón MD Copies to: ~ Date of Service: 10/02/2024 Subjective Subjective Narrative: Patient is feeling a bit better than yesterday. Shortness of breath is improvedalthough she still requires oxygen 3 L nasal cannula to maintain an oxygen saturation below 91% Lungs minimal rhonchi bilaterally. Minimal wheezing. Heart regular Abdomen soft Neurological nonfocal Assessment and plan 1. Acute bronchitis, asthma exacerbation, acute hypoxic respiratory failure Continue steroid therapy systemically Continue bronchodilators, Mucinex, azithromycin orally. 2. Diabetes type 2 with steroid-induced hyperglycemia Continue corrective scale insulin DVT prophylaxis Xarelto Anticipate discharge home tomorrow Exam Physical Exam Vital Signs: Temp Pulse Resp BP Pulse Ox O2 Del Method O2 Flow Rate 98.4 F 107 H 20 133/89 91 L Nasal Cannula 3 10/02/24 11:26 10/02/24 12:49 10/02/24 12:49 10/02/24 11:26 10/02/24 11:26 10/02/24 11:29 10/02/24 11:29 Objective Lab Results 10/02/24 06:18 10/01/24 12:10 Microbiology Results Microbiology 10/01/24 12:10 Nasopharyngeal SARS-CoV-2, Influenza & RSV (PCR) - Final Meds Allergies and Active Meds Allergies No Known Allergies Allergy (Verified 10/01/24 11:40) Active Meds: Active Medications Generic Name Dose Route Start Last Admin Trade Name Freq PRN Reason Stop Dose Admin Acetaminophen 1,000 mg 10/01/24 15:56 10/02/24 06:48 Acetaminophen 500 Mg Tablet PO 10/01/25 15:55 1,000 mg Q6H PRN Administration Fever or Pain Albuterol/Ipratropium 3 ml 10/01/24 16:00 10/02/24 12:48 Ipratropium/Albuterol 0.5-3 Mg 3 Ml Ampul.Neb INHALATION 10/01/25 15:59 3 ml Q4H MAGGIE Administration Azithromycin 500 mg 10/02/24 09:00 10/02/24 09:06 Azithromycin 250 Mg Tablet PO 500 mg DAILY MAGGIE Administration Escitalopram Oxalate 20 mg 10/02/24 09:00 11/13/24 09:06 Escitalopram 20 Mg Tablet PO 10/02/25 08:59 20 mg DAILY MAGGIE Administration Guaifenesin 1,200 mg 10/01/24 21:00 10/02/24 09:06 Guaifenesin 600 Mg Tab.Er.12h PO 10/01/25 20:59 1,200 mg BID MAGGIE Administration Insulin Aspart 0 units 10/01/24 17:00 10/02/24 11:13 Insulin Aspart 300 Units/3 Ml Insuln.Pen SUBCUT 10/01/25 16:59 2 units TID.WM.HS MAGGIE Administration Protocol Methylprednisolone 32 mg 10/01/24 21:00 10/02/24 09:05 Methylprednisolone 16 Mg Tablet PO 10/01/25 20:59 32 mg BID MAGGIE Administration Norgestimate-Ethinyl 1 tab 10/02/24 12:00 10/02/24 11:13 Estradiol [Tri-Lo- PO 10/02/25 11:59 1 tab Estarylla] 0.18/0. DAILY MAGGIE Administration 215/0.25 Mg-25 Mcg Prochlorperazine Edisylate 10 mg 10/02/24 11:28 Prochlorperazine Edisylate 10 Mg/2 Ml Vial IV-PUSH 10/02/25 11:27 Q4H PRN Nausea And Vomiting Rivaroxaban 10 mg 10/02/24 09:00 10/02/24 09:06 Rivaroxaban 10 Mg Tablet PO 10/02/25 08:59 10 mg DAILY MAGGIE Administration Sodium Chloride 0 ml 10/01/24 11:43 10/01/24 14:16 Sodium Chloride 0.9 % 10 Ml Syringe IV-PUSH 10/01/25 11:42 10 ml PRN PRN Administration Flush Trazodone HCl 100 mg 10/01/24 22:00 10/01/24 22:27 Trazodone 100 Mg Tablet PO 10/01/25 21:59 100 mg QHS MAGGIE Administration A&P - Hospitalist Assessment/Plan (1) Acute bronchitis: (2) Acute hypoxemic respiratory failure: Plan as above Documented By: Brayan Calderón MD 10/02/24 1309 Signed By: <Electronically signed by Brayan Calderón MD> 10/02/24 1310 [facility] Work Phone: Summary Purpose Family History No Family History Records FoundNo Family History Records FoundNo Family History Records Found Advance Directives No Advanced Directives Records Found Advance Directive Response Recorded Date/ Time Advance Directives No December 28, 2017 10:49am Advance Directive Response Recorded Date/ Time Advance Directives No December 28, 2017 9:49am Chief Complaint and Reason for Visit Chief Complaint L finger swollen Chief Complaint z01.89 Chief Complaint Admit Date z01.89 September 03, 2024 9 :12am SOB, CHEST PRESSURE October 01, 2024 2:29pm Reason for Visit Admit Date Acute bronchitis October 01, 2024 2:29pm Acute hypoxemic respiratory failure Tobye cary 2023 2:29pm Additional Source Comments INFORMATION SOURCE (unrecogn ized section and content) DATE CREATED AUTHOR 07/03/2021 Agustin Chato [facility] DATE CREATED AUTHOR AUTHOR'S ORGANIZ ATION 01/27/2022 [facility] DATE CREATED AUTHOR AUTHOR'S ORGANIZ ATION 10/08/2024 [facility] Care Teams (unrecognized sec tion and content) Team Status: Active Member Role Status Dates Services Family [facility] [place] Primary Care Provider Active Team Status: Inactive Member Role Status Dates Services [facility] Primary Care Provider Active Start: February 08, 2024 End: February 08, 2024 Isak Falk APRN Emergency Provider Active Start: February 08, 2024 End: February 08, 2024 Team Status: Inactive Member Role Status Dates Services Family [facility] [place] Primary Care Provider Active Start: September 03, 2024 End: September 03, 2024 Gagandeep Bernard DO Attending Provider Active Start : September 03, 2024 End: September 03, 2024 Vignesh Vogel DO RES Other Provider Active Sta rt: September 03, 2024 End: September 03, 2024 Team Status: Active Member Role Status Dates Services Family [facility] [place] Primary Care Provider Active Start: October 01, 2024 Alec Antoine DO Emergency Provider Active Start: October 01, 2024 Brayan Calderón MD Admit Provider, Atte nding Provider Active Start: October 01, 2024 Team Status: Inactive Member Role Status Dates Services [facility] Primary Care Provider Active Start: October 01, 2024 End: October 03, 2024 Alec Antoine DO Emergency Provider Active Start: October 01, 2024 End: October 03, 2024 Brayan Calderón MD Admit Provider, Kylie peter Provider Active Start: October 01, 2024 End: October 03, 2024 Goals (unrecognized section and content) Goals may be documented in a n alternate sectionGoals may be documented in an alternate section FOR RECORDS PERTAINING TO PATIENTS WHO ARE OR HAVE BEEN ENROLLED IN A CHEMICAL DEPENDENCY/SUBSTANCEABUSE PROGRAM, SOME INFORMATION MAY BE OMITTED. This clinical summary was aggregated from multiple sources. Caution should be exercised in using it in the provision of clinical care. This summary normalizes information from multiple sources, and as a consequence, information in this document may materially change the coding, format and clinical context of patient data. In addition, data may be omitted in some cases. CLINICAL DECISIONS SHOULD BE BASED ON THE PRIMARY CLINICAL RECORDS. [employer] provides no warranty or guarantee of the accuracy or completeness of information in this document.
[2025-01-14 16:59] LABS: Bilirubin Urine NEGATIVE (NEGATIVE); Blood Urine NEGATIVE (NEGATIVE); Clarity Urine CLEAR (CLEAR); Color Urine LT. YELLOW (YELLOW); Glucose Urine UA NEGATIVE (NEGATIVE); Ketones Urine NEGATIVE (NEGATIVE); Leukocyte Esterase Urine TRACE (NEGATIVE); Nitrite Urine NEGATIVE (NEGATIVE); Protein Urine TRACE mg/dL (NEG/TRACE); Specific Gravity Urine 1.015 (1.005-1.025); pH Urine 7.5 (5.0-9.0)
[2025-01-14 17:05] LABS: Urine Microscopic Indicated YES
[2025-01-14 17:06] LABS: HCG Qualitative Urine* NEGATIVE (NEGATIVE); Internal Control Within Normal Limits
[2025-01-14 17:11] LABS: Bacteria Urine TRACE #/HPF (NONE SEEN); Cast Seen? NONE SEEN #/LPF (NONE SEEN); Crystals Seen? None Seen #/HPF (None Seen); Mucus Urine SMALL (NONE SEEN); RBC Urine NONE SEEN #/HPF (0-2); Squamous Epithelial Cell Urine MODERATE #/LPF (NONE/RARE); Urine Culture Indicated NO; WBC Urine 0-2 #/HPF (NONE SEEN)
== END 2025-01-14 19:13 | disposition left against medical advice (07) ==
PROVIDERS: Emergency Medicine; Emergency Provider Emergency Medicine
DX: Z53.21 Procedure and treatment not carried out due to patient leaving prior to being seen by health care provider (principal)
CPT/HCPCS: 81001; 84703; 99285

== ENCOUNTER 2025-03-17 15:42 | Emergency (ER) | payer MEDICAID, SELFPAY ==
[2025-03-17 15:48] VITALS: BP 150/97; PULSE 100; TEMP 37.1; O2SAT 98; BMI 81.8
[2025-03-17] MEDS: KETOROLAC TROMETHAMINE 60 MG/2 ML VIAL IM (16:17)
[2025-03-17] MEDS: ONDANSETRON 4 MG RAPDIS TABLET SL (16:17)
--- NOTE | 2025-03-17 16:22 | ED_ITS ---
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 and she has been exposed mostly to multiple people although she does not recall any of them have similar symptoms The patient denies any other complaints She does have a history of migraine but not diagnosed Related Data Previous Rx's ?Medication ?Instructions ?Recorded ondansetron 4 mg disintegrating 4 mg PO Q8H PRN nausea and 03/17/25 tablet vomiting 3 days #10 tabs Allergies Allergy/AdvReac Type Severity Reaction Status Date / Time No Known Drug Allergies Allergy Verified 03/17/25 15:48 Opioid HPI Opioid Management Most Recent Opioid Data: Last Pain Scale 9 03/17/25 16:17 03/17/25 Last MAR Pain Assessment 03/17/25 16:17 Review of Systems ROS Status of ROS 10 or more systems reviewed and unremark able except as noted in history and below PFSH PFSH Social History Smoking status: Never smoker Little interest or pleasure in doing things: not at all Feeling down, depressed, or hopeless: not at all Exam Narrative Exam Narrative: Nurses notes and vital signs reviewed and patient is not hypoxic. General: Well-appearing and in no apparent distress. Skin: Warm, dry, no pallor noted. No rash. Head: Normocephalic, atraumatic. Neck: Supple, non-tender. Eye: Pupils are equal, round and EOMI. No scleral icterus. Ears, Nose, Mouth, and Throat: TM are clear, no nasal mucosal hypertrophy. Oral mucosa is moist, no posterior oropharynx erythema, uvula is mid-line Cardiovascular: Regular Rate and Rhythm without murmur, gallop or rub. Respiratory: No accessory muscle use or respiratory distress. Lungs are clear to auscultation, no wheezing, rales or rhonchi Chest Wall: no tenderness Back: No midline thoracic or lumbar vertebral tenderness. No CVA tenderness Musculoskeletal: normal ROM, no calf or popliteal tenderness, no lower extremity edema/swelling GI: Abdomen is soft, non-distended. Normal bowel sounds. No masses appreciated. No tenderness to palpation. No rebound, guarding, or rigidity noted. Neurological: A&O x4. No cranial nerve dysfunction observed. No truncal ataxia. Moves all extremities. Sensation intact. Psychiatric: Cooperative and interactive. Normal mood and affect. Constitutional Vital Signs, click to edit/add: Last Vital Signs Temp 98.7 F 03/17/25 15:48 Pulse 100 H 03/17/25 15:48 Resp 18 03/17/25 15:48 BP 150/97 H 03/17/25 15:48 Pulse Ox 98 03/17/25 15:48 O2 Del Method Room Air 03/17/25 15:48 Course Vital Signs Vital signs: Vital Signs Temperature 98.7 F 03/17/25 15:48 Pulse Rate 100 H 03/17/25 15:48 Respiratory Rate 18 03/17/25 15:48 Blood Pressure 150/97 H 03/17/25 15:48 Pulse Oximetry 98 03/17/25 15:48 Oxygen Delivery Method Room Air 03/17/25 15:48 Temperature 98.7 F 03/17/25 15:48 Pulse Rate 100 H 03/17/25 15:48 Respiratory Rate 18 03/17/25 15:48 Blood Pressure 150/97 H 03/17/25 15:48 Pulse Oximetry 98 03/17/25 15:48 Oxygen Delivery Method Room Air 03/17/25 15:48 Medical Decision Making MDM Narrative Medical decision making narrative: The patient instructed on hydration provided with Zofran in the ER as well as Toradol after which she was feeling better Discharged home with hydration and supportive care with Zofran The patient is to follow up with primary care physician in next 2-3 days or to return to the emergency department should any of the signs or symptoms worsen or new symptoms develop. The patient agrees with the following Diagnosis and Treatment plan and the patient will be discharged home. Discharge Plan Discharge Chief Complaint: Headache Clinical Impression: Migraine, Acute viral syndrome Patient Disposition: Home, Self-Care Time of Disposition Decision: 16:22 Condition: Good Prescriptions / Home Meds: New ondansetron 4 mg tablet,disintegrating 4 mg PO Q8H PRN (Reason: nausea and vomiting) 3 Days Qty: 10 0RF Print Language: Bots[place] Instructions: Migraine Headache (ED), Viral Syndrome (ED) Referrals: [facility] [Primary Care Provider] - 1 week
--- NOTE | 2025-03-17 16:24 | PC.NURSE ---
Pt presents to ER with a headache since 0200 this morning that started while at work Pt states she had taken Tylenol earlier today but has not taken anything else Pt calls it a migraine but has not been seen by neurology or ever formally diagnosed with migraines Pt states she has had emesis x1 and still feeling nauseated pt rates pain a 9/10 at time of medicating Pt lying on bed with lights off in room- denies further needs or questions at this time
[2025-03-17] MEDS: PROCHLORPERAZINE 10 MG/2 ML VIAL IV (17:48)
[2025-03-17] MEDS: 0.9 % SODIUM CHLORIDE 1,000 ML 1000 ML IV (17:49)
[2025-03-17 18:46] VITALS: BP 136/84; PULSE 78; O2SAT 99
== END 2025-03-17 19:20 | disposition home or self-care (01) ==
PROVIDERS: Emergency Provider Emergency Medicine
DX: G43.909 Migraine, unspecified, not intractable, without status migrainosus (principal); B34.9 Viral infection, unspecified
CPT/HCPCS: 96361; 96372; 96374; 99284; J0780; J1885; Q0162

== ENCOUNTER 2025-03-28 16:30 | Emergency (ER) | payer MEDICAID, SELFPAY ==
[2025-03-28 16:37] VITALS: BP 162/99; PULSE 94; TEMP 37; O2SAT 97; BMI 37.3
--- OUTSIDE RECORDS SUMMARY | 2025-03-28 16:54 | XMS_ITS | CCD ---
Author Organization [facility] Care Team Providers Care Residential Coordinator Name Role Phone SG, DR GALLAGHER Primary Care Unavailable PAY, DR CASSIDY Admitting Unavailable PAY, DR CASSIDY Attending Unavailable WEST, DR GRAEME Greenwood Consulting Unavailable PAY, DR CASSIDY Consulting Unavailable MILLIE, ABIODUN HARRIS Consulting Unavailable ANI, DR ZOYA Carrizales Admitting Unavailable ANI, DR ZOYA Carrizales Attending Unavailable ROSA, DR GALLAGHER Primary Care Unavailable ANI, DR ZOYA Carrizales Consulting Unavailable JENNIFER, HOMER Consulting Unavailable [facility], Services Primary Care Provider ROSHAN Falk Emergency Provider [facility] Primary Care Provider DO Gagandeep Bernard Attending Provider DO Vignesh Vogel Other Provider [facility] Services Primary Care Provider Gagandeep Bernard DO Attending Provider [phone] Vignesh Vogel DO Other Provider Alec Antoine DO Emergency Provider Brayan Calderón MD Admit Provider Brayan Calderón MD Attending Provider [phone] [facility] Services Primary Care Unavaila Isak Avendano Attending Unavailable Isak Falk Admitting Unavailable [facility] Services Primary Care Unavaila Gagandeep Yee Attending Unavailable Gagandeep Bernard Admitting Unavailable Vignesh Vogel Consulting Unavailable [facility] Services Primary Care Unavaila Brayan Kyle Attending Unavailable Brayan Calderón Admitting Unavailable NONE, XXXX Primary Care Physician Unavailab Brody Pringle Attending Unavailable Brody Yun Attending Unavailable Medications Current Medications Medication Drug Class(es) Dates Sig (Normalized) Sig (Original) [id number] 200 actuat albuterol 0.09 mg/actuat metered dose [...] 20 October 03, 2024 12:00am Norgestimate-Ethinyl Estradiol (Rmw-Ji-Scgenxpbb) 0.18/0.215/0.25 mg-25 mcg tablet (2 sources) Start: 10-01-2024 take 1 tablet by mouth once daily Norgestimate-Ethinyl Estradiol (Sht-Mu-Dsdfuhgnn) 0.18/0.215/0.25 mg-25 mcg tablet Active 1 TAB PO Daily October 01, 2024 12:00am ondansetron 4 mg disintegrating oral tablet (1 source) Serotonin-3 Receptor Antagonist Start: 01-14-2025 End: 01-17-2025 take 1 tablet by mouth every six hours ondansetron 4 mg Dis Tab 4 mg = 1 tab(s), Oral, q6hr, X 3 day(s), # 10 tab(s), Refills(s) 0, Pharmacy: [facility]/pharmacy #[id number], 165, cm, 01/14/25 19:16:00 EST, Height/Length Dosing, 105.5, kg, 01/14/25 19:16:00 EST, Weight Dosing Start Date: 01/14/25 Stop Date: 01/17/25 Status: Ordered petrolatum 0.41 mg/mg topical ointment (1 source) Start: 05-11-2020 Aquaphor topical ointment 1 ana, Topical, BID for dry skin, 396 gram, Refill(s) 0 Start Date: 05/11/20 Status: Ordered traZODone hydrochloride 50 mg oral tablet (2 sources) Serotonin Reuptake Inhibitor Start: 10-01-2024 take 1 tablet by mouth once daily at bedtime as needed for sleep Trazodone 50 mg tablet Active 50 MG PO Daily at bedtime as needed for sleep October 01, 2024 12:00am Completed/Discontinued Medications Medication Drug Class(es) Dates Sig (Normalized) Sig (Original) Albuterol (Eqv-ProAir HFA) 90 mcg/inh inhalation aerosol (1 source) Start: 06-20-2021 take 1 dose by inhalation every six hours as needed Albuterol (Eqv-ProAir HFA) 90 mcg/inh inhalation aerosol 2 puff(s), Inhalation, q6hr as needed for wheezing, 1 EA, Refill(s) 0, [employer] [facility] [employer] [facility], 165, cm, 06/20/21 16:35:00 EDT, Height/Length Dosing, 109, kg, 06/20/21 16:35:00 EDT, Weight Dosing Start Date: 06/20/21 Status: Ordered azithromycin 250 mg oral tablet (4 sources) [...] Active Problems Problem Classification Problem Date Documented Date Episodic/Chronic Abdominal pain (4 sources) Unspecified abdominal pain; Translations: [UNSPECIFIED ABDOMINAL PAIN] Onset: 01-24-2022 Episodic Acute bronchitis (5 sources) Acute bronchitis; Translations: [Acute bronchitis, unspecified] Onset: 10-01-2024 10-01-2024 Episodic Calculus of urinary tract (1 source) Calculus of ureter; Translations: [CALCULUS OF URETER] Onset: 01-26-2022 Episodic Chronic obstructive pulmonary disease and bronchiectasis (5 sources) Bronchitis; Translations: [Bronchitis, not specified as acute or chronic] 11-01-2023 Episodic Comment on above: Problem List clean-u p per request of Phys. EHR Cmte Diabetes mellitus without complication (1 source) Hyperglycemia, unspecified; Translations: [Hyperglycemia, unspecified] Onset: 10-01-2024 Episodic Nausea and vomiting (1 source) Nausea with vomiting, unspecified; Translations: [NAUSEA WITH VOMITING UNSPECIFIED] Onset: 01-26-2022 Episodic Noninfectious gastroenteritis (1 source) Noninfectious enteritis; Translations: [Noninfective gastroenteritis and colitis, unspecified] Onset: 01-14-2025 Episodic Other connective tissue disease (3 sources) [...] Test Name Value Interpretation Reference Range Facility B hCG [facility] 01-14-2025 Beta HCG ( test) Ql Negative Normal [facility] Comment on above: Performed By: #### 2 [id number] #### [facility] [address] [place] [address] CBC w/ Auto Diffon 5 Basophils/100 WBC (Bld) 1.2 % Normal 0.0-2.0 [facility] Comment on above: Performed By: #### 2 [id number] #### [facility] [address] [place] [address] Basophils/Leukocytes Auto (Bld) [Pure # fraction] 0.2 E9/L Normal 0.0-0.2 [facility] Comment on above: Performed By: #### 2 [id number] #### [facility] [address] [place] [address] Eosinophils (Bld) [#/Vol] 0.0 E9/L Normal 0.0-0.5 [facility] Comment on above: Performed By: #### 2 [id number] #### [facility] [address] [place] [address] Eosinophils/100 WBC (Bld) 0.2 % Normal 0.0-8.0 [facility] Comment on above: Performed By: #### 2 [id number] #### [facility] [address] [place] [address] Erythrocyte distribution width (RBC) [Ratio] 12.7 % Normal 10.9-14.2 [facility] Comment on above: Performed By: #### 2 [id number] #### [facility] [address] [place] [address] Hematocrit (Bld) [Volume fraction] 39.5 % Normal 34.0-46.0 [facility] Comment on above: Performed By: #### 2 [id number] #### [facility] [address] [place] [address] Hemoglobin (Bld) [Mass/Vol] 13.7 g/dL Normal 12.0-16.0 [facility] Comment on above: Performed By: #### 2 [id number] #### [facility] [address] [place] [address] Lymphocytes (Bld) [#/Vol] 3.2 E9/L Normal 1.0-4.0 [facility] Comment on above: Performed By: #### 2 [id number] #### [facility] [address] [place] [address] Lymphocytes/100 WBC (Bld) 21.3 % Normal 14.0-50.0 [facility] Comment on above: Performed By: #### 2 [id number] #### [facility] [address] [place] [address] MCH (RBC) [Entitic mass] 29.1 pg Normal 27.0-34.0 [facility] Comment on above: Performed By: #### 2 [id number] #### [facility] [address] [place] [address] MCHC (RBC) [Mass/Vol] 34.7 g/dL Normal 31.4-36.0 [facility] Comment on above: Performed By: #### 2 [id number] #### [facility] [address] [place] [address] MCV (RBC) [Entitic vol] 83.9 fL Normal 80.0-100.0 [facility] Comment on above: Performed By: #### 2 [id number] #### [facility] [address] [place] [address] Monocytes (Bld) [#/Vol] 1.1 E9/L High 0.2-1.0 [facility] Comment on above: Performed By: #### 2 [id number] #### [facility] [address] [place] [address] Neutrophils (Bld) [#/Vol] 10.6 E9/L High 2.0-7.5 [facility] Comment on above: Performed By: #### 2 [id number] #### [facility] [address] [place] [address] Neutrophils/100 WBC (Bld) 70.2 % Normal 36.0-75.0 [facility] Comment on above: Performed By: #### 2 [id number] #### [facility] [address] [place] [address] Platelet 413.0 E9/L Normal 150.0-500.0 [facility] Comment on above: Performed By: #### 2 [id number] #### [facility] [address] [place] [address] Platelet mean volume (Bld) [Entitic vol] 6.6 fL Normal 6.4-10.8 [facility] Comment on above: Performed By: #### 2 [id number] #### [facility] [address] [place] [address] RBC (Bld) [#/Vol] 4.7 E12/L Normal 4.3-5.9 [facility] Comment on above: Performed By: #### 2 [id number] #### [facility] [address] [place] [address] WBC corrected for nucl RBC Auto (Bld) [#/Vol] 15.1 E9/L High 4.0-11.0 [facility] Comment on above: Performed By: #### 2 [id number] #### [facility] [address] [place] [address] CHEMISTRYOrdered By: SYSTEM SYSTEM on 01-14-2025 Albumin [Mass/Vol] 4.5 g/dL Normal 3.3 - 5.0 gm/dL Remisol Chem Albumin/Globulin [Mass ratio] 1.4 {ratio} Normal 1.1 - 2.2 [facility] ALP [Catalytic activity/Vol] 85 [iU]/d Normal 21 - 98 Int._Unit/L Remisol Chem ALT No additional P-5'-P [Catalytic activity/Vol] 37 [iU]/d Normal 6 - 46 Int._Unit/L [facility] Anion gap [Moles/Vol] 11 mmol/L Normal 6 - 16 mEq/L [facility] AST [Catalytic activity/Vol] 28 [iU]/d Normal 5 - 43 Int._Unit/L [facility] Bilirubin [Mass/Vol] 0.9 mg/dL Normal 0.0 - 1 .1 mg/dL [facility] Calcium [Mass/Vol] 9.0 mg/dL Normal 8.9 - 11. 1 mg/dL [facility] Chloride [Moles/Vol] 101 mmol/L Normal 101 - 1 11 mmol/L [facility] CO2 [Moles/Vol] 28 mmol/L Normal 21 - 31 mmol/L [facility] Creatinine [Mass/Vol] 0.6 mg/dL Normal 0.5 - 1.3 mg/dL [facility] eGFR 122 mL/min/1.73 m2 Normal >=59mL/mi n/ 1.73 m2 [facility] Globulin (S) [Mass/Vol] 3.2 g/dL Normal 1.4 - 4.0 gm/dL [facility] Glucose [Mass/Vol] 131 mg/dL Normal 55 - 199 mg/dL [facility] Lipase [Catalytic activity/Vol] 5 U/L Low 13 - 58 unit/L [facility] Potassium [Moles/Vol] 4.0 mmol/L Normal 3.5 - 5.3 mmol/L [facility] Protein [Mass/Vol] 7.7 g/dL Normal 6.0 - 7.8 gm/dL [facility] Sodium [Moles/Vol] 136 mmol/L Normal 135 - 145 mmol/L [facility] Urea nitrogen [Mass/Vol] 9 mg/dL Normal 5 - 21 mg/dL [facility] Urea nitrogen/Creatinine [Mass ratio] 15 mg/mg Normal 10 - 20 [facility] CMPon 01-14-2025 Albumin [Mass/Vol] 4.5 g/dL Normal 3.3-5.0 [facility] Comment on above: Performed By: #### 2 [id number] #### [facility] [address] [place] [address] Albumin/Globulin (S) [Mass conc ratio] 1.4 Normal 1.1-2.2 [facility] Comment on above: Performed By: #### 2 [id number] #### [facility] [address] [place] [address] ALP [Catalytic activity/Vol] 85 Int._Unit/L Normal 21-98 [facility] Comment on above: Performed By: #### 2 [id number] #### [facility] [address] [place] [address] ALT No additional P-5'-P [Catalytic activity/Vol] 37 Int._Unit/L Normal 6-46 [facility] Comment on above: Performed By: #### 2 [id number] #### [facility] [address] [place] [address] Anion gap [Moles/Vol] 11 mmol/L Normal 6-16 [facility] Comment on above: Performed By: #### 2 [id number] #### [facility] [address] [place] [address] AST [Catalytic activity/Vol] 28 Int._Unit/L Normal 5-43 [facility] Comment on above: Performed By: #### 2 [id number] #### [facility] [address] [place] [address] Bilirubin [Mass/Vol] 0.9 mg/dL Normal 0.0-1.1 [facility] Comment on above: Performed By: #### 2 [id number] #### [facility] [address] [place] [address] Calcium [Mass/Vol] 9.0 mg/dL Normal 8.9-11.1 [facility] Comment on above: Performed By: #### 2 [id number] #### [facility] [address] [place] [address] Chloride [Moles/Vol] 101 mmol/L Normal 101-111 [facility] Comment on above: Performed By: #### 2 [id number] #### [facility] [address] [place] [address] CO2 [Moles/Vol] 28 mmol/L Normal 21-31 [facility] Comment on above: Performed By: #### 2 [id number] #### [facility] [address] [place] [address] Creatinine [Mass/Vol] 0.6 mg/dL Normal 0.5-1.3 [facility] Comment on above: Performed By: #### 2 [id number] #### [facility] [address] [place] [address] Globulin (S) [Mass/Vol] 3.2 g/dL Normal 1.4-4.0 [facility] Comment on above: Performed By: #### 2 [id number] #### [facility] [address] [place] [address] Glucose [Mass/Vol] 131 mg/dL Normal 55-199 [facility] Comment on above: Performed By: #### 2 [id number] #### [facility] [address] [place] [address] Potassium [Moles/Vol] 4.0 mmol/L Normal 3.5-5.3 [facility] Comment on above: Performed By: #### 2 [id number] #### [facility] [address] [place] [address] Protein [Mass/Vol] 7.7 g/dL Normal 6.0-7.8 [facility] Comment on above: Performed By: #### 2 [id number] #### [facility] [address] [place] [address] Sodium [Moles/Vol] 136 mmol/L Normal 135-145 [facility] Comment on above: Performed By: #### 2 429505 #### [facility] [address] [place] [address] Urea nitrogen [Mass/Vol] 9 mg/dL Normal 5-21 [facility] Comment on above: Performed By: #### 2 623692 #### [facility] [address] [place] [address] Urea nitrogen/Creatinine [Mass ratio] 15 No Units Normal 10-20 [facility] Comment on above: Performed By: #### 2 [id number] #### [facility] [address] [place] [address] ED Clinical Summaryon 2024 ED Clinical Summary ED Clinical Summary [address] [address] ED Clinical Summary Person Information Name: STEPHANIE ZAYAS/[facility] Age: 34 Years : 1990 Sex: Female Language: Korean PCP: NONE, XXXX Marital Status: Single Visit Id: Visit Reason: Nausea; Vomiting; VOMITING X3 DAYS Speciality: Acuity: 4 Enc Type: Emergency Med Service: Emergency Arrival: 01/14/2025 19:03:48 Discharge: 01/14/2025 22:10:03 LOS: 000 03:07 Checkin: 01/14/2025 19:03:48 Checkout: 01/14/2025 22:10:03 Dispo Type: Home (Routine DC) EVENTS: Event Name Event Status Request Date/Time Start Date/Time Complete Date/Time Arrive Complete 01/14/2025 19:03:48 01/14/2025 19:03:48 01/14/2025 19:03:48 Document Home Meds Request 01/14/2025 19:03:48 Triage Complete 01/14/2025 19:03:48 01/14/2025 19:16:44 01/14/2025 19:16:44 Bed Assign Complete 01/14/2025 19:36:41 01/14/2025 19:36:41 01/14/2025 19:36:41 Dr Exam Complete 01/14/2025 19:36:41 01/14/2025 19:39:10 01/14/2025 19:39:10 RN Exam Complete 01/14/2025 19:36:41 01/14/2025 20:17:49 01/14/2025 20:17:49 Registration Complete 01/14/2025 19:39:10 01/14/2025 20:07:22 01/14/2025 20:07:22 Pending Labs Complete 01/14/2025 20:00:51 01/14/2025 20:43:03 Lab Complete 01/14/2025 20:00:51 01/14/2025 20:43:03 Meds Admin Complete 01/14/2025 20:00:51 01/14/2025 20:15:38 Reg Complete Request 01/14/2025 20:07:22 Reg Bed Request Complete 01/14/2025 20:07:22 01/14/2025 20:07:22 01/14/2025 20:07:22 Pending Labs Complete 01/14/2025 20:17:39 01/14/2025 20:17:39 01/14/2025 20:42:47 Lab Complete 01/14/2025 20:17:39 01/14/2025 20:17:39 01/14/2025 20:42:47 Pending Labs Complete 01/14/2025 20:38:42 01/14/2025 20:38:42 01/14/2025 20:38:44 Discharge Complete 01/14/2025 21:53:17 01/14/2025 22:10:08 01/14/2025 22:10:08 Meds Admin Complete 01/14/2025 21:54:22 01/14/2025 22:08:28 Transfer Complete 01/14/2025 22:10:08 01/14/2025 22:10:08 01/14/2025 22:10:08 ADDRESS: [address] [place] [address] DR SHETTY Genesis [place] [id number] PHYS DOC NOTES: MEDICAL INFORMATION: Prescriptions Given: New Medications [id number] [address] [facility] [place] [id number], [phone] ondansetron (ondansetron 4 mg Dis Tab) 1 Tablets By Mouth every 6 hours for 3 Days. Refills: 0. Medications to Continue with No Changes Other Medications albuterol (Albuterol (Eqv-ProAir HFA) 90 mcg/inh inhalation aerosol) 2 Puffs Inhalation every 6 hours as needed as needed for wheezing. Refills: 0. emollients, topical (Aquaphor topical ointment) 1 Application Topical 2 times a day as needed for dry skin. Refills: 0. PATIENT EDUCATION INFORMATION: Instructions: Follow up: With: Address: When: [facility] [address] [place] [id number] Business (1) In 3 days 01/17/2025 With: Address: When: XXXX NONE , [place] In 3 days DIAGNOSIS: Gastroenteritis Normal [facility] ED Note-Physicianon 01-14-20 ED Note-Physician ED Note-Physician Basic Information . Time Seen: Brody Yun DO 01/14/2025 19:39 Chief Complaint Pt arrives to ED from home with c/o intermittent vomiting for last 3 days, unable to keep anything down. Constant nausea. No meds at home. Denies abd pain, fevers. Preg test NEG at home. No active vomiting at this time, last time an hour ago. History of Present Illness 34 female presents emergency department with nausea vomiting diarrhea. Patient states that she just recently got over upper respiratory infectious symptoms in fact she states that those are completely gone however the last 2 to 3 days she has developed intractable nausea and vomiting she has had some slight diarrhea as well. She states the nausea has been constant as well. She denies any chance of stating that she took a test at home that was negative. No other prior treatments. She was not sure if this was her anxiety or nausea because she cannot keep her anxiety medications down. No real abdominal pain with this. No urinary symptoms. No other aggravating or relieving factors no other associated symptoms no other prior treatments or complaints. Family: Reviewed and noncontributory Social: lives at home Review of systems negative unless otherwise specified in the HPI. Physical Exam Vitals & Measurements T: 36.7 ???C(Oral) HR: 88(Peripheral) RR: 20 BP: 156/100 SpO2: 98% HT: 165 cm WT: 105.5 kg BMI: 38.75 General: The patient appears well and in no apparent distress. Patient is resting comfortably on cart. Skin: Warm, dry, no pallor noted. Head: Normocephalic, atraumatic Neck: No JVD Eye: PERRLA, EOMI ENT: Moist mucus membranes Cardiovascular: Regular rate normal peripheral perfusion Respiratory: No respiratory distress no accessory muscle use no obvious audible wheezing Chest Wall: no deformity Musculoskeletal: normal ROM, no deformity, no swelling GI: Soft no obvious distention. No rebound or rigidity. No guarding. No tenderness. Neurological: A&O moves all extremities equal strength and symmetry Psychiatric: Cooperative and appropriate Medical Decision Making Workup in the ER has been reviewed and noted. Patient does have mild leukocytosis which is likely reactive She was treated here with Zofran and on repeat evaluation she is doing much better she feels better she is able to tolerate p.o. challenge she is discharged home on Zofran provided with a note for work educated on this illness and follow-up in the outpatient setting return to ER symptoms change or worsen. Assessment/Plan Gastroenteritis (K52.9: Noninfective gastroenteritis and colitis, unspecified) Orders: ondansetron, 12 mg = 3 tab(s), Tab-Dis, Oral, Once, Stop date 01/14/25 21:54:00 EST, STAT, Start date 01/14/25 21:54:00 EST, 01/14/25 21:54:00 EST ondansetron, 4 mg = 1 tab(s), Oral, q6hr, X 3 day(s), # 10 tab(s), Refills(s) 0, Pharmacy: [facility]/pharmacy #[id number], 165, cm, 01/14/25 19:16:00 EST, Height/Length Dosing, 105.5, kg, 01/14/25 19:16:00 EST, Weight Dosing ondansetron, 4 mg = 1 tab(s), Tab-Dis, Oral, Once, Stop date 01/14/25 20:00:00 EST, STAT, Start date 01/14/25 20:00:00 EST, 01/14/25 20:00:00 EST Beta hCG Qual CBC w/ Auto Diff Comprehensive Metabolic Panel eGFR Extra Blue Tube Lipase Level Medications Administered Given Zofran ODT 4 mg Tab-Dis, 4 mg, Oral Disposition Plan Discharge Prescription List Prescriptions ondansetron 4 mg Dis Tab, 4 mg= 1 tab(s), Oral, q6hr Follow-up With When Contact Information [facility] In 3 days 01/17/[address] [place], [place] [address] (1) Additional Instructions: XXXX NONE In 3 days [place] Additional Instructions: Problem List/Past Medical History Ongoing No qualifying data Historical Bronchitis Medications Inpatient Zofran ODT 4 mg Tab-Dis, 4 mg= 1 tab(s), Oral, Once Home Albuterol (Eqv-ProAir HFA) 90 mcg/inh inhalation aerosol, 2 puff(s), Inhalation, q6hr, PRN Aquaphor topical ointment, 1 ana, Topical, BID, PRN Allergies No Known Allergies Social History Alcohol - Low Risk, 01/24/2016 1-2 times per year, 06/20/2021 Current, 05/11/2020 Substance Abuse - Denies Substance Abuse, 01/24/2016 Marijuana, 1-2 times per month, 06/20/2021 Current, 05/11/2020 Tobacco - Denies Tobacco Use, 01/24/2016 Former smoker, quit more than 30 days ago Tobacco Use:., 06/20/2021 Former smoker, quit more than 30 days ago Tobacco Use:., 05/11/2020 Lab Results WBC: 15.1 E9/L High (01/14/25 20:09:00) RBC: 4.7 E12/L (01/14/25 20:09:00) HGB: 13.7 gm/dL (01/14/25 20:09:00) Hct: 39.5 % (01/14/25 20:09:00) MCV: 83.9 fL (01/14/25 20:09:00) MCH: 29.1 pg (01/14/25 20:09:00) MCHC: 34.7 gm/dL (01/14/25 20:09:00) RDW: 12.7 % (01/14/25 20:09:00) Platelet: 413 E9/L (01/14/25 20:09:00) MPV: 6.6 fL (01/14/25 20:09:00) Neutro Auto: 70.2 % (01/14/25 20:09:00) Lymph Auto: 21.3 % (01/14/25 20:09:00) [place] Auto: 7.1 % (01/14/25 20:09:00) Eos Auto: 0 (more content not included)... Normal [facility] Comment on above: Result Comment: Elec tronically Signed By: Brody Yun DO\.br\Date and Time Signed: 01/14/25 21:55 EST ED Patient Education Noteon 01-14-2025 ED Patient Education Note ED Patient Education Note Normal [facility] ED Patient Summaryon 025 ED Patient Summary ED Patient Summary [address] [address] Patient Discharge Instructions Person Information Name: STEPHANIE ZAYAS Age: 34 Years Arrival Date: 01/14/2025 19:03:48 Discharge Diagnosis: Gastroenteritis Primary Care Physician: NONE, XXXX Provider Information Primary Provider: Brody Yun DO Advanced Sales And Marketing Executive:None The exam and treatment you received in the Emergency Department were for an urgent problem and are not intended as complete care. It is important that you follow up with a doctor, nurse practitioner, or physician???s judicial assistant for ongoing care. If your symptoms become worse or you do not improve as expected and you are unable to reach your usual health care provider, you should return to the Emergency Department. We are available 24 hours a day. STEPHANIE ZAYAS has been given the following list of patient education materials, prescriptions and follow-up instructions: Follow-up Instructions: With: Address: When: [email or web address] [place] [phone] Business (1) In 3 days 01/17/2025 With: Address: When: XXXX NONE , [place] In 3 days In the event that this physician does not participate in your insurance network, please consult with your insurance company to find a nearby participating provider. Patient Education Materials: A MESSAGE TO ALL PATIENTS REGARDING OPIOIDS PRESCRIPTION OPIOIDS: WHAT YOU NEED TO KNOW Prescription opioids can be used to help relieve cqevrrhu-[id number] pain and are often prescribed following a [...] as well, even when taken as directed: ??? Tolerance???meaning you might need to take more of the medication for the same pain relief ??? Physical dependence???meaning you have symptoms of withdrawal when a medication is stopped ??? Increased sensitivity to pain ??? Constipation ??? Nausea, vomiting, and dry mouth ??? Sleepiness and dizziness ??? Confusion ??? Depression ??? Low levels of testosterone that can result in lower sex drive, energy, and strength ??? Itching and sweating RISKS ARE GREATER WITH: ??? History of drug misuse, substance use disorder, or overdose ??? Mental health conditions (such as depression or anxiety) ??? Sleep apnea ??? Older age (65 years and older) ??? Avoid alcohol while taking prescription opioids. Also, unless specifically advised by your health care provider, medications to avoid include: ??? Benzodiazepines (such as Xanax or Valium) ??? Muscle relaxants (such as Soma or Flexeril) ??? Hypnotics (such as Ambien or Lunesta) ??? Other prescription opioids KNOW YOUR OPTIONS Talk to your health care provider about ways to manage your pain that don???t involve prescription opioids. Some of these options may actually work better and have fewer risks and side effects. Options may include: ??? Pain relievers such as acetaminophen, ibuprofen, and naproxen ??? Some medication that are also used for depression or seizures ??? Physical therapy and exercise ??? Cognitive behavioral therapy, a psychological, goal-directed approach, in which patients learn how to modify physical, behavioral, and emotional triggers of pain and stress. IF YOU ARE PRESCRIBED OPIOIDS FOR PAIN: ??? Never take opioids in greater amounts or more often than prescribed. ??? Follow up with your primary health care provider. o Work together to create a plan on how to manage your pain. o Talk about ways to help manage your pain that don???t involve prescription opioids. o Talk about any and all concerns and side effects. ??? Help prevent misuse and abuse o Never sell or share prescription opioids. o Never use another person???s prescription opioids. ??? Store prescription opioids in a secure place and out of reach of others (this may include visitors, children, friends, and family). ??? Safely dispose of unused prescription opioids: Find your community drug take-back program or your pharmacy mail-back program, or flush them down the toilet, following guidance from the Food and Drug Administration (www.fda.gov/Drugs/Resourc esForYou). ??? Visit www.cdc.gov/drugoverdose to learn about the risks of opioids abuse and overdose. ??? If you believe you may be struggling with addiction, tell your health care professio (more content not included)... Normal [facility] Extra Blueon 01-14-2025 Tube Collected Plasma Yes Invalid Interpretation Code [facility] Comment on above: Performed By: #### 1 [id number] #### [facility] [address] [place] [address] HEMATOLOGYOrdered By: SYSTEM SYSTEM on 01-14-2025 Basophils/100 WBC (Bld) 1.2 % Normal 0.0 - 2.0 % Remisol Heme Basophils/Leukocytes Auto (Bld) [Pure # fraction] 0.2 E9/L Normal 0.0 - 0.2 E9/L [facility] Eosinophils (Bld) [#/Vol] 0.0 E9/L Normal 0.0 - 0.5 E9/L [facility] Eosinophils/100 WBC (Bld) 0.2 % Normal 0.0 - 8.0 % [facility] Erythrocyte distribution width (RBC) [Ratio] 12.7 % Normal 10.9 - 14.2 % [facility] Hematocrit (Bld) [Volume fraction] 39.5 % Normal 34.0 - 46.0 % [facility] Hemoglobin (Bld) [Mass/Vol] 13.7 g/dL Normal 12.0 - 16.0 gm/dL [facility] Lymphocytes (Bld) [#/Vol] 3.2 E9/L Normal 1.0 - 4.0 E9/L [facility] Lymphocytes/100 WBC (Bld) 21.3 % Normal 14.0 - 50.0 % [facility] MCH (RBC) [Entitic mass] 29.1 pg Normal 27.0 - 34.0 pg [facility]e MCHC (RBC) [Mass/Vol] 34.7 g/dL Normal 31.4 - 36.0 gm/dL [facility] MCV (RBC) [Entitic vol] 83.9 fL Normal 80.0 - 100.0 fL [facility] Monocytes (Bld) [#/Vol] 1.1 E9/L High 0.2 - 1.0 E9/L [facility] Monocytes/100 WBC (Bld) 7.1 % Normal 4.0 - 14.0 % [facility] Neutrophils (Bld) [#/Vol] 10.6 E9/L High 2.0 - 7.5 E9/L [facility] Neutrophils/100 WBC (Bld) 70.2 % Normal 36.0 - 75.0 % [facility] Platelet 413.0 E9/L Normal 150.0 - 500.0 E9/L [facility] Platelet mean volume (Bld) [Entitic vol] 6.6 fL Normal 6.4 - 10.8 fL [facility] RBC (Bld) [#/Vol] 4.7 E12/L Normal 4.3 - 5.9 E12/L [facility] WBC corrected for nucl RBC Auto (Bld) [#/Vol] 15.1 E9/L High 4.0 - 11.0 E9/L [facility] Lipase Levelon 01-14-2025 Lipase [Catalytic activity/Vol] 5 U/L Low 13-58 [facility] Comment on above: Performed By: #### 2 [id number] #### [facility] [address] [place] [address] SEROLOGYOrdered By: Carrol Gonzalez on 01-14-2025 Beta HCG ( test) Ql Negative (01/14/25 8:09 PM) Normal [facility]ero eGFRon 01-14-2025 eGFR 122 mL/min/1.73 m2 Normal >=59 [facility] Comment on above: Performed By: #### 1 [id number] #### [facility] [address] [place] [id number] Basophils Auto (Bld) [#/Vol] Ordered By: Milady Jay on 10-03-2024 Basophils (Bld) [#/Vol] Automated basophil count 0.0-0.2 [facility] Basophils/100 WBC Auto (Bld) Ordered By: Milady Jay on 10-03-2024 Basophils/100 WBC (Bld) Automated basophil % . [facility] Complete Blood Count Auto Di ffon 10-03-2024 Basophils (Bld) [#/Vol] 0.0 10*3/uL Normal 0.0-0.2 [facility] Comment on above: Result Comment: PERF ORMED BY: [place] [address] PATHOLOGIST TRAILER RENTAL CLERK MALENA SORIA M.D. Performed By: #### C OVID19 FLU RSV, CEPHEID NEG #### [facility] [address] [place] [address] [place] Basophils/100 WBC (Bld) 0.2 % Normal . [facility] Comment on above: Performed By: #### C OVID19 FLU RSV, CEPHEID NEG #### [facility] [address] [place] [id number] [place] Eosinophils (Bld) [#/Vol] 0.0 10*3/uL Normal 0.0-0.45 [facility] Comment on above: Performed By: #### C OVID19 FLU RSV, CEPHEID NEG #### [facility] [address] [place] [id number] [place] Eosinophils/100 WBC (Bld) 0.1 % Normal . [facility] Comment on above: Performed By: #### C OVID19 FLU RSV, CEPHEID NEG #### [address] Erythrocyte distribution width (RBC) [Ratio] 12.6 % Normal 11.9-15.3 [facility] Comment on above: Performed By: #### C OVID19 FLU RSV, CEPHEID NEG #### [address] Hematocrit (Bld) [Volume fraction] 37.9 % Normal 34.0-46.4 [facility] Comment on above: Performed By: #### C OVID19 FLU RSV, CEPHEID NEG #### [address] Hemoglobin (Bld) [Mass/Vol] 13.3 g/dL Normal 11.8-15.4 [facility] Comment on above: Performed By: #### C OVID19 FLU RSV, CEPHEID NEG #### [address] Lymphocytes (Bld) [#/Vol] 2.5 10*3/uL Normal 1.00-4.8 [facility] Comment on above: Performed By: #### C OVID19 FLU RSV, CEPHEID NEG #### [address] Lymphocytes/100 WBC (Bld) 12.6 % Normal . [facility] Comment on above: Performed By: #### C OVID19 FLU RSV, CEPHEID NEG #### [address] MCH (RBC) [Entitic mass] 30.1 pg Normal 24.7-34.3 [facility] Comment on above: Performed By: #### C OVID19 FLU RSV, CEPHEID NEG #### [address] MCV (RBC) [Entitic vol] 86.0 fL Normal 80-100 [facility] Comment on above: Performed By: #### C OVID19 FLU RSV, CEPHEID NEG #### [place] [address] Mean Corpuscular HGB Conc 35.0 g/dL Normal 32.0-35.0 [facility] Comment on above: Performed By: #### C OVID19 FLU RSV, CEPHEID NEG #### [address] Monocytes (Bld) [#/Vol] 0.9 10*3/uL High 0.0-0.8 [facility] Comment on above: Performed By: #### C OVID19 FLU RSV, CEPHEID NEG #### [address] Monocytes/100 WBC (Bld) 4.3 % Normal . [facility] Comment on above: Performed By: #### C OVID19 FLU RSV, CEPHEID NEG #### [address] Neutrophils (Bld) [#/Vol] 16.6 10*3/uL High 1.8-7.7 [facility] Comment on above: Performed By: #### C OVID19 FLU RSV, CEPHEID NEG #### [place] [address] [place] Neutrophils/100 WBC (Bld) 82.8 % Normal . [facility] Comment on above: Performed By: #### C OVID19 FLU RSV, CEPHEID NEG #### [address] NRBC% 0.0 /100{WBC} Normal 0-0.5 [facility] Comment on above: Performed By: #### C OVID19 FLU RSV, CEPHEID NEG #### [address] Platelet mean volume (Bld) [Entitic vol] 6.3 fL Normal 6.3-10.7 [facility] Comment on above: Performed By: #### C OVID19 FLU RSV, CEPHEID NEG #### [place] [address] [place] Platelets (Bld) [#/Vol] 434 10*3/uL Normal 150-450 [facility] Comment on above: Performed By: #### C OVID19 FLU RSV, CEPHEID NEG #### [facility] [address] RBC (Bld) [#/Vol] 4.41 10*6/uL Normal 3.60-5.00 [facility] Comment on above: Performed By: #### C OVID19 FLU RSV, CEPHEID NEG #### [facility] [address] WBC (Bld) [#/Vol] 20.0 10*3/uL High 3.8-11.6 [facility] Comment on above: Performed By: #### C OVID19 FLU RSV, CEPHEID NEG #### [facility] [address] Eosinophils Auto (Bld) [#/Vo l]Ordered By: Milady Jay on 10-03-2024 Eosinophils (Bld) [#/Vol] Automated eosinophil count 0.0-0.45 [facility] Eosinophils/100 WBC Auto (Bl d)Ordered By: Milady Jay on 10-03-2024 Eosinophils/100 WBC (Bld) Automated eosinophil % . [facility] Erythrocyte distribution wid th Auto (RBC) [Ratio]Ordered By: Milady Jay on 10-03-2024 Erythrocyte distribution width (RBC) [Ratio] Erythrocyte distribution width [Ratio] by Automated count 11.9-15.3 [facility] Glucose Glucometer (dC) [M ass/Vol]Ordered By: Brayan Calderón on 10-03-2024 Glucose [Mass/Vol] Capillary blood gluc ose measurement by glucometer (mass/volume) [facility] Comment on above: Random Glucose Refer ence Range is dependent on time and content of last meal. Glucose of more than 200 mg/dL in a nonstressed, ambulatory subject supports the diagnosis of Diabetes Mellitus. Glucose Poct Glucometerson 1 12-03-2023 Glucose [Mass/Vol] 216 mg/dL Normal [facility] Comment on above: Result Comment: [place] Glucose Reference Range is dependent on time and content of last meal. Glucose of more than 200 mg/dL in a nonstressed, ambulatory subject supports the diagnosis of Diabetes Mellitus. PERFORMED BY: [place] [address] PATHOLOGIST TRAILER RENTAL CLERK MALENA SORIA M.D. Performed By: #### C OVID19 FLU RSV, CEPHEID NEG #### [address] Glucose [Mass/Vol] 273 mg/dL Normal [facility] Comment on above: Result Comment: [facility] Glucose Reference Range is dependent on time and content of last meal. Glucose of more than 200 mg/dL in a nonstressed, ambulatory subject supports the diagnosis of Diabetes Mellitus. PERFORMED BY: [place] [address] PATHOLOGIST TRAILER RENTAL CLERK MALENA SORIA M.D. Performed By: #### C OVID19 FLU RSV, CEPHEID NEG #### [address] Hematocrit Auto (Bld) [Volum e fraction]Ordered By: Milady Jay on 10-03-2024 Hematocrit (Bld) [Volume fraction] Hematocrit [Volume Fraction] of Blood by Automated count 34.0-46.4 [facility] Hemoglobin [Mass/volume] in BloodOrdered By: Milady Jay on 10-03-2024 Hemoglobin (Bld) [Mass/Vol] Hemoglobin [Mass/volume] in Blood 11.8-15.4 [facility] Leukocytes [#/volume] correc david for nucleated erythrocytes in Blood by Automated counOrdered By: Milady Jay on 10-03-2024 WBC corrected for nucl RBC Auto (Bld) [#/Vol] Leukocytes [#/volume] corrected for nucleated erythrocytes in Blood by Automated coun High 3.8-11.6 [facility] Lymphocytes Auto (Bld) [#/Vo l]Ordered By: Milady Jay on 10-03-2024 Lymphocytes (Bld) [#/Vol] Lymphocytes [#/volume] in Blood by Automated count 1.00-4.8 [facility] Lymphocytes/100 WBC Auto (Bl d)Ordered By: Milady Jay on 10-03-2024 Lymphocytes/100 WBC (Bld) Lymphocytes/100 leukocytes in Blood by Automated count . [facility] MCH Auto (RBC) [Entitic mass ]Ordered By: Milady Jay on 10-03-2024 MCH (RBC) [Entitic mass] MCH [Entitic mass] by Automated count 24.7-34.3 [facility] MCHC Auto (RBC) [Mass/Vol]Or dered By: Milady Jay on 10-03-2024 MCHC (RBC) [Mass/Vol] MCHC [Mass/volume] by Automated count 32.0-35.0 [facility] MCV Auto (RBC) [Entitic vol] Ordered By: Milady Jay on 10-03-2024 MCV (RBC) [Entitic vol] MCV [Entitic volume] by Automated count 80-100 [facility] Monocytes Auto (Bld) [#/Vol] Ordered By: Milady Jay on 10-03-2024 Monocytes (Bld) [#/Vol] Automated blood monocyte count High 0.0-0.8 [facility] Monocytes/100 WBC Auto (Bld) Ordered By: Milady Jay on 10-03-2024 Monocytes/100 WBC (Bld) Automated monocyte % . [facility] Neutrophils Auto (Bld) [#/Vo l]Ordered By: Milady Jay on 10-03-2024 Neutrophils (Bld) [#/Vol] Neutrophils [#/volume] in Blood by Automated count High 1.8-7.7 [facility] Neutrophils/100 WBC Auto (Bl d)Ordered By: Milady Jay on 10-03-2024 Neutrophils/100 WBC (Bld) Automated neutrophil % . [facility] Nucleated erythrocytes [Pres ence] in Blood by Automated countOrdered By: Milady Jay on 10-03-2024 Nucleated RBC Auto Ql (Bld) Nucleated erythrocytes [Presence] in Blood by Automated count 0-0.5 [facility] Platelet mean volume Auto (B ld) [Entitic vol]Ordered By: Milady Jay on 10-03-2024 Platelet mean volume (Bld) [Entitic vol] Platelet mean volume [Entitic volume] in Blood by Automated count 6.3-10.7 [facility] Platelets Auto (Bld) [#/Vol] Ordered By: Milady Jay on 10-03-2024 Platelets (Bld) [#/Vol] Platelets [#/volume] in Blood by Automated count 150-450 [facility] RBC Auto (Bld) [#/Vol]Ordere d By: Milady Jay on 10-03-2024 RBC (Bld) [#/Vol] Erythrocytes [#/volu me] in Blood by Automated count 3.60-5.00 [facility] WBC Auto (Bld) [#/Vol]Ordere d By: Milady Jay on 10-03-2024 WBC (Bld) [#/Vol] Leukocytes [#/volume ] in Blood by Automated count High 3.8-11.6 [facility] Complete Blood Count Auto Di ffon 10-02-2024 Basophils (Bld) [#/Vol] 0.1 10*3/uL Normal 0.0-0.2 [facility] Comment on above: Result Comment: PERF ORMED BY: [place] [address] PATHOLOGIST TRAILER RENTAL CLERK DUC QUIGLEY M.D. Performed By: #### M G, CMP #### [place] [address] [place] Basophils/100 WBC (Bld) 0.3 % Normal . [facility] Comment on above: Performed By: #### M G, CMP #### [facility] [address] [place] [address] [place] Eosinophils (Bld) [#/Vol] 0.0 10*3/uL Normal 0.0-0.45 [facility] Comment on above: Performed By: #### M G, CMP #### [place] [address] [place] Eosinophils/100 WBC (Bld) 0.1 % Normal . [facility] Comment on above: Performed By: #### M G, CMP #### [address] Erythrocyte distribution width (RBC) [Ratio] 12.6 % Normal 11.9-15.3 [facility] Comment on above: Performed By: #### M G, CMP #### [address] Hematocrit (Bld) [Volume fraction] 40.0 % Normal 34.0-46.4 [facility] Comment on above: Performed By: #### M G, CMP #### [address] Hemoglobin (Bld) [Mass/Vol] 13.8 g/dL Normal 11.8-15.4 [facility] Comment on above: Performed By: #### M G, CMP #### [address] Lymphocytes (Bld) [#/Vol] 2.0 10*3/uL Normal 1.00-4.8 [facility] Comment on above: Performed By: #### M G, CMP #### [address] Lymphocytes/100 WBC (Bld) 9.3 % Normal . [facility] Comment on above: Performed By: #### M G, CMP #### [address] MCH (RBC) [Entitic mass] 29.5 pg Normal 24.7-34.3 [facility] Comment on above: Performed By: #### M G, CMP #### [address] MCV (RBC) [Entitic vol] 85.5 fL Normal 80-100 [facility] Comment on above: Performed By: #### M G, CMP #### [address] Mean Corpuscular HGB Conc 34.6 g/dL Normal 32.0-35.0 [facility] Comment on above: Performed By: #### M G, CMP #### [address] Monocytes (Bld) [#/Vol] 0.8 10*3/uL Normal 0.0-0.8 [facility] Comment on above: Performed By: #### M G, CMP #### [place] [address] [place] Monocytes/100 WBC (Bld) 3.8 % Normal . [facility] Comment on above: Performed By: #### M G, CMP #### [place] [address] [place] Neutrophils (Bld) [#/Vol] 18.6 10*3/uL High 1.8-7.7 [facility] Comment on above: Performed By: #### Yaakov G, CMP #### [place] [address] [place] Neutrophils/100 WBC (Bld) 86.5 % Normal . [facility] Comment on above: Performed By: #### Yaakov G, CMP #### [address] NRBC% 0.1 /100{WBC} Normal 0-0.5 [facility] Comment on above: Performed By: #### Yaakov G, CMP #### [address] Platelet mean volume (Bld) [Entitic vol] 6.2 fL Low 6.3-10.7 [facility] Comment on above: Performed By: #### Yaakov G, CMP #### [place] [address] [place] Platelets (Bld) [#/Vol] 432 10*3/uL Normal 150-450 [facility] Comment on above: Performed By: #### Yaakov G, CMP #### [place] [address] [place] RBC (Bld) [#/Vol] 4.68 10*6/uL Normal 3.60-5.00 [facility] Comment on above: Performed By: #### Yaakov G, CMP #### [address] WBC (Bld) [#/Vol] 21.5 10*3/uL High 3.8-11.6 [facility] Comment on above: Performed By: #### M Musa, CMP #### [facility] [address] [place] [id number] [place] Glucose Poct Glucometerson 1 12-02-2023 Glucose [Mass/Vol] 170 mg/dL Normal [facility] Comment on above: Result Comment: [place] om Glucose Reference Range is dependent on time and content of last meal. Glucose of more than 200 mg/dL in a nonstressed, ambulatory subject supports the diagnosis of Diabetes Mellitus. PERFORMED BY: [place] [address] PATHOLOGIST TRAILER RENTAL CLERK MALENA SORIA M.D. Performed By: #### C OVID19 FLU RSV, CEPHEID NEG #### [facility] [address] [place] [id number] [place] Glucose [Mass/Vol] 214 mg/dL Normal [facility] Comment on above: Result Comment: [facility] om Glucose Reference Range is dependent on time and content of last meal. Glucose of more than 200 mg/dL in a nonstressed, ambulatory subject supports the diagnosis of Diabetes Mellitus. PERFORMED BY: [place] [address] PATHOLOGIST TRAILER RENTAL CLERK MALENA SORIA M.D. Performed By: #### C OVID19 FLU RSV, CEPHEID NEG #### [facility] [address] [place] [id number] [place] Glucose [Mass/Vol] 241 mg/dL Normal [facility] Comment on above: Result Comment: [facility] Glucose Reference Range is dependent on time and content of last meal. Glucose of more than 200 mg/dL in a nonstressed, ambulatory subject supports the diagnosis of Diabetes Mellitus. PERFORMED BY: [place] [address] PATHOLOGIST TRAILER RENTAL CLERK MALENA SORIA M.D. Performed By: #### M Musa, CMP #### [facility] [address] [place] [id number] [place] Glucose [Mass/Vol] 214 mg/dL Normal [facility] Comment on above: Result Comment: [place] om Glucose Reference Range is dependent on time and content of last meal. Glucose of more than 200 mg/dL in a nonstressed, ambulatory subject supports the diagnosis of Diabetes Mellitus. PERFORMED BY: [facility] [address] [place] [address] PATHOLOGIST TRAILER RENTAL CLERK DUC QUIGLEY M.D. Performed By: #### G LULS #### Point of Care testing , Alanine aminotransferase [En zymatic activity/volume] in Serum or PlasmaOrdered By: Alec Antoine on 10-01-2024 ALT [Catalytic activity/Vol] Alanine aminotransferase [Enzymatic activity/volume] in Serum or Plasma 7-52 [facility] Albumin [Mass/volume] in Ser um or Plasma by Bromocresol green (BCG) dye binding methoOrdered By: Alec Antoine on 10-01-2024 Albumin BCG dye [Mass/Vol] Albumin [Mass/volume] in Serum or Plasma by Bromocresol green (BCG) dye binding metho 3.5-5.7 [facility] Alkaline phosphatase [Enzyma tic activity/volume] in Serum or PlasmaOrdered By: Alec Antoine on 10-01-2024 ALP [Catalytic activity/Vol] Alkaline phosphatase [Enzymatic activity/volume] in Serum or Plasma 34-104 [facility] Appearance of UrineOrdered B y: Alec Antoine on 10-01-2024 Appearance (U) Urine appearance Clear [facility] Aspartate aminotransferase [ Enzymatic activity/volume] in Serum or PlasmaOrdered By: Alec Antoine on 10-01-2024 AST [Catalytic activity/Vol] Aspartate aminotransferase [Enzymatic activity/volume] in Serum or Plasma 13-39 [facility] B-Type Natriuretic Peptideon 10-01-2024 Natriuretic peptide B (Bld) [Mass/Vol] 22.0 pg/mL Normal 5-100 [facility] Comment on above: Result Comment: PERF ORMED BY: [facility] [address] [place] [address] PATHOLOGIST TRAILER RENTAL CLERK DUC QUIGLEY M.D. Performed By: #### B SET UP MECHANIC AUTOMATIC LINE, PTT, PT, CBC, HS TROP, CK #### [place] [id number] [place] Bacteria [Presence] in Urine by AutomatedOrdered By: Alec Antoine on 10-01-2024 Bacteria Auto Ql (U) Bacteria [Presence] in Urine by Automated None Seen [facility] Basophils Auto (Bld) [#/Vol] Ordered By: Alec Antoine on 10-01-2024 Basophils (Bld) [#/Vol] Automated basophil count 0.0-0.2 [facility] Basophils/100 WBC Auto (Bld) Ordered By: Alec Antoine on 10-01-2024 Basophils/100 WBC (Bld) Automated basophil % . [facility] Bilirubin Test strip Ql (U)O rdered By: Alec Antoine on 10-01-2024 Bilirubin Ql (U) Bilirubin.total [Pre sence] in Urine by Test strip Negative [facility] Bilirubin.total [Mass/volume ] in Serum or PlasmaOrdered By: Alec Antoine on 10-01-2024 Bilirubin [Mass/Vol] Bilirubin.total [Mass/volume] in Serum or Plasma 0.3-1.0 [facility] Blood Cultureon 10-01-2024 Bacteria identified Cx Nom (Bld) NO GROWTH 5 DAYS PERFORMED BY: [place] [address] PATHOLOGIST TRAILER RENTAL CLERK MALENA SORIA M.D. Normal [facility] Comment on above: Performed By: #### M G, CMP #### [address] COVID Cepheid NegativeOrdere d By: Alec Antoine on 10-01-2024 SARS-CoV-2 (COVID-19) Ab IA Ql COVID Cepheid Negative [facility] Comment on above: This is a duplicate [...] or Cepheid Disclaimer revoked sooner. PERFORMED BY: [facility] [address] [place] [address] PATHOLOGIST TRAILER RENTAL CLERK DUC QUIGLEY M.D. Normal [facility] Comment on above: Performed By: #### C OVID19 FLU RSV, CEPHEID NEG #### [facility] [address] [place] [address] [facility] CT angio chest PE protocol 10-01-2024 CT angio chest PE protocol [facility] [place] [address] [place] [address] CT Scan Report Signed Patient: Stephanie Zayas MR#: [id number] : 1990 Acct:[id number] Age/Sex: 34 / F ADM Date: 10/01/24 Loc: ER Room: Type: [facility] ER Attending Dr: Copies to: Alec Antoine [...] Kati Mckeon M.D.10/01/2024 1:55 PM Dictation Location: [place] [address] Transcribed By: MO 10/01/24 1357 Dictated By: Kati Mckeon MD 10/01/24 1347 Signed By: 10/01/24 1350 Normal [facility] Calcium [Mass/volume] in Ser um or PlasmaOrdered By: Alec Antoine on 10-01-2024 Calcium [Mass/Vol] Calcium [Mass/volume ] in Serum or Plasma 8.6-10.3 [facility] Carbon dioxide, total [Moles /volume] in Serum or PlasmaOrdered By: Alec Antoine on 10-01-2024 CO2 [Moles/Vol] Carbon dioxide, tota l [Moles/volume] in Serum or Plasma 21.0-31.0 [facility] Cepheid COVID PCR Negativeon 10-01-2024 SARS-CoV-2 (COVID-19) RNA STEPHAN+probe Ql (Unsp spec) Negative Normal Negative [facility] Comment on above: Result Comment: This is a duplicate [employer] [employer] Xpert Xpress CoV-2/Flu/RSV Plus RNA by RT-PCR result to be used for statistical tracking purpose only. PERFORMED BY: [place] [address] PATHOLOGIST TRAILER RENTAL CLERK DUC QUIGLEY M.D. Performed By: #### C OVID19 FLU RSV, CEPHEID NEG #### [address] [address] [place] Chloride [Moles/volume] in S zully or PlasmaOrdered By: Alec Antoine on 10-01-2024 Chloride [Moles/Vol] Chloride [Moles/vol ume] in Serum or Plasma 98-107 [facility] Color Auto (U)Ordered By: Shailesh Antoine on 10-01-2024 Color (U) Color of Urine by Auto [facility] Complete Blood Count Auto Di ffon 10-01-2024 Basophils (Bld) [#/Vol] 0.1 10*3/uL Normal 0.0-0.2 [facility] Comment on above: Result Comment: PERF ORMED BY: [place] [address] PATHOLOGIST TRAILER RENTAL CLERK DUC QUIGLEY M.D. Performed By: #### B SET UP MECHANIC AUTOMATIC LINE, PTT, PT, CBC, HS TROP, CK #### [facility] [address] [place] [address] [place] Basophils/100 WBC (Bld) 0.8 % Normal . [facility] Comment on above: Performed By: #### B SET UP MECHANIC AUTOMATIC LINE, PTT, PT, CBC, HS TROP, CK #### [address] Eosinophils (Bld) [#/Vol] 1.1 10*3/uL High 0.0-0.45 [facility] Comment on above: Performed By: #### B SET UP MECHANIC AUTOMATIC LINE, PTT, PT, CBC, HS TROP, CK #### [address] Eosinophils/100 WBC (Bld) 5.8 % Normal . [facility] Comment on above: Performed By: #### B SET UP MECHANIC AUTOMATIC LINE, PTT, PT, CBC, HS TROP, CK #### [address] Erythrocyte distribution width (RBC) [Ratio] 12.9 % Normal 11.9-15.3 [facility] Comment on above: Performed By: #### B SET UP MECHANIC AUTOMATIC LINE, PTT, PT, CBC, HS TROP, CK #### [address] Hematocrit (Bld) [Volume fraction] 40.9 % Normal 34.0-46.4 [facility] Comment on above: Performed By: #### B SET UP MECHANIC AUTOMATIC LINE, PTT, PT, CBC, HS TROP, CK #### [address] Hemoglobin (Bld) [Mass/Vol] 14.4 g/dL Normal 11.8-15.4 [facility] Comment on above: Performed By: #### B SET UP MECHANIC AUTOMATIC LINE, PTT, PT, CBC, HS TROP, CK #### [address] Lymphocytes (Bld) [#/Vol] 2.5 10*3/uL Normal 1.00-4.8 [facility] Comment on above: Performed By: #### B SET UP MECHANIC AUTOMATIC LINE, PTT, PT, CBC, HS TROP, CK #### [address] Lymphocytes/100 WBC (Bld) 13.6 % Normal . [facility] Comment on above: Performed By: #### B SET UP MECHANIC AUTOMATIC LINE, PTT, PT, CBC, HS TROP, CK #### [address] MCH (RBC) [Entitic mass] 30.3 pg Normal 24.7-34.3 [facility] Comment on above: Performed By: #### B SET UP MECHANIC AUTOMATIC LINE, PTT, PT, CBC, HS TROP, CK #### [address] MCV (RBC) [Entitic vol] 85.8 fL Normal 80-100 [facility] Comment on above: Performed By: #### B SET UP MECHANIC AUTOMATIC LINE, PTT, PT, CBC, HS TROP, CK #### [address] Mean Corpuscular HGB Conc 35.3 g/dL High 32.0-35.0 [facility] Comment on above: Performed By: #### B SET UP MECHANIC AUTOMATIC LINE, PTT, PT, CBC, HS TROP, CK #### [address] Monocytes (Bld) [#/Vol] 1.3 10*3/uL High 0.0-0.8 [facility] Comment on above: Performed By: #### B SET UP MECHANIC AUTOMATIC LINE, PTT, PT, CBC, HS TROP, CK #### [address] Monocytes/100 WBC (Bld) 18.16 % Normal 0.00-20.00 [facility] Comment on above: Performed By: #### B SET UP MECHANIC AUTOMATIC LINE, PTT, PT, CBC, HS TROP, CK #### [address] Monocytes/100 WBC (Bld) 7.2 % Normal . [facility] Comment on above: Performed By: #### B SET UP MECHANIC AUTOMATIC LINE, PTT, PT, CBC, HS TROP, CK #### [address] Neutrophils (Bld) [#/Vol] 13.1 10*3/uL High 1.8-7.7 [facility] Comment on above: Performed By: #### B SET UP MECHANIC AUTOMATIC LINE, PTT, PT, CBC, HS TROP, CK #### [address] Neutrophils/100 WBC (Bld) 72.6 % Normal . [facility] Comment on above: Performed By: #### B SET UP MECHANIC AUTOMATIC LINE, PTT, PT, CBC, HS TROP, CK #### [address] NRBC% 0.1 /100{WBC} Normal 0-0.5 [facility] Comment on above: Performed By: #### B SET UP MECHANIC AUTOMATIC LINE, PTT, PT, CBC, HS TROP, CK #### [address] Platelet mean volume (Bld) [Entitic vol] 6.1 fL Low 6.3-10.7 [facility] Comment on above: Performed By: #### B SET UP MECHANIC AUTOMATIC LINE, PTT, PT, CBC, HS TROP, CK #### [address] Platelets (Bld) [#/Vol] 423 10*3/uL Normal 150-450 [facility] Comment on above: Performed By: #### B SET UP MECHANIC AUTOMATIC LINE, PTT, PT, CBC, HS TROP, CK #### [address] RBC (Bld) [#/Vol] 4.77 10*6/uL Normal 3.60-5.00 [facility] Comment on above: Performed By: #### B SET UP MECHANIC AUTOMATIC LINE, PTT, PT, CBC, HS TROP, CK #### [address] WBC (Bld) [#/Vol] 18.1 10*3/uL High 3.8-11.6 [facility] Comment on above: Performed By: #### B SET UP MECHANIC AUTOMATIC LINE, PTT, PT, CBC, HS TROP, CK #### [address] Comprehensive Metabolic Pane reece 10-01-2024 Albumin [Mass/Vol] 4.7 g/dL Normal 3.5-5.7 [facility] Comment on above: Performed By: #### Yaakov Vigil, CMP #### [address] Albumin/Globulin [Mass ratio] 1.4 {ratio} Normal [facility] Comment on above: Performed By: #### Yaakov Vigil, CMP #### [address] ALP [Catalytic activity/Vol] 78 U/L Normal 34-104 [facility] Comment on above: Performed By: #### Yaakov Vigil, CMP #### [address] ALT [Catalytic activity/Vol] 40 U/L Normal 7-52 [facility] Comment on above: Performed By: #### Yaakov Vigil, CMP #### [address] Anion gap [Moles/Vol] 14.5 mmol/L Normal 6.0-15.[address] [facility] Comment on above: Performed By: #### Yaakov Vigil, CMP #### [address] AST [Catalytic activity/Vol] 23 U/L Normal 13-39 [facility] Comment on above: Performed By: #### Yaakov Vigil, CMP #### [address] Bilirubin [Mass/Vol] 0.5 mg/dL Normal 0.3-1.0 [facility] Comment on above: Performed By: #### Yaakov Vigil, CMP #### [address] Calcium [Mass/Vol] 9.3 mg/dL Normal 8.6-10.3 [facility] Comment on above: Performed By: #### Yaakov Vigil, CMP #### [address] Chloride [Moles/Vol] 102 mmol/L Normal 98-107 [facility] Comment on above: Performed By: #### Yaakov Vigil, CMP #### [place] [address] [place] CO2 [Moles/Vol] 22.4 mmol/L Normal 21.0-31.0 [facility] Comment on above: Performed By: #### Yaakov Vigil, CMP #### [address] Creatinine [Mass/Vol] 0.60 mg/dL Normal 0.60-1.20 [facility] Comment on above: Performed By: #### Yaakov Vigil, CMP #### [place] [address] [place] Creatinine Clr Calc Pharmacy 176.33 Normal [facility] Comment on above: Performed By: #### Yaakov G, CMP #### [place] [address] [place] GFR/1.73 sq M.predicted MDRD (S/P/Bld) [Vol rate/Area] mL/min/{1.73_m2} Normal [facility] Comment on above: Performed By: #### Yaakov Vigil, CMP #### [address] Globulin (S) [Mass/Vol] 3.3 g/dL Normal [facility] Comment on above: Performed By: #### Yaakov Vigil, CMP #### [address] Glucose [Mass/Vol] 220 mg/dL High 70-100 [facility] Comment on above: Result Comment: [facility] Glucose Reference Range is dependent on time and content of last meal. Glucose of more than 200 mg/dL in a nonstressed, ambulatory subject supports the diagnosis of Diabetes Mellitus. ADA recommended reference range Performed By: #### M G, CMP #### [address] Potassium [Moles/Vol] 3.9 mmol/L Normal 3.5-5.1 [facility] Comment on above: Performed By: #### M G, CMP #### [address] Protein [Mass/Vol] 8.0 g/dL Normal 6.4-8.9 [facility] Comment on above: Performed By: #### M G, CMP #### [facility] [address] [place] [address] [place] Sodium [Moles/Vol] 135 mmol/L Low 136-145 [facility] Comment on above: Performed By: #### M G, CMP #### [facility] [address] [place] [id number] [facility] Urea nitrogen [Mass/Vol] 10 mg/dL Normal 7-25 [facility] Comment on above: Performed By: #### M G, CMP #### [facility] [address] [place] [id number] [place] Creatine Kinaseon 10-01-2024 CK [Catalytic activity/Vol] 147 U/L Normal 30-223 [facility] Comment on above: Performed By: #### B SET UP MECHANIC AUTOMATIC LINE, PTT, PT, CBC, HS TROP, CK #### [place] [id number] [place] Creatine kinase [Enzymatic a ctivity/volume] in Serum or PlasmaOrdered By: Alec Antoine on 10-01-2024 CK [Catalytic activity/Vol] Creatine kinase [Enzymatic activity/volume] in Serum or Plasma 30-223 [facility] Creatinine [Mass/volume] in Serum or PlasmaOrdered By: Alec Antoine on 10-01-2024 Creatinine [Mass/Vol] Creatinine [Mass/v olume] in Serum or Plasma 0.60-1.20 [facility] Dipstick and Microscopicon 1 12-01-2023 Appearance (U) Clear Normal Clear [facility] Comment on above: Order Comment: Name Collection Type:: Clean-Voided Midstream Performed By: #### C OVID19 FLU RSV, CEPHEID NEG #### [place] [id number] [place] Bacteria,Urine None Seen Normal None Seen [facility] Comment on above: Order Comment: Name Collection Type:: Clean-Voided Midstream Performed By: #### C OVID19 FLU RSV, CEPHEID NEG #### [place] [id number] [place] Bilirubin,Urine Negative Normal Negative [facility] Comment on above: Order Comment: Name Collection Type:: Clean-Voided Midstream Performed By: #### C OVID19 FLU RSV, CEPHEID NEG #### [address] Color (U) Light-Yellow Normal Yellow [facility] Comment on above: Order Comment: Name Collection Type:: Clean-Voided Midstream Performed By: #### C OVID19 FLU RSV, CEPHEID NEG #### [address] Glucose Ql (U) 300 mg/dL High Normal [facility] Comment on above: Order Comment: Name Collection Type:: Clean-Voided Midstream Performed By: #### C OVID19 FLU RSV, CEPHEID NEG #### [address] Hyaline Casts,Urine None Normal 0-8 [facility] Comment on above: Order Comment: Name Collection Type:: Clean-Voided Midstream Result Comment: PERF ORMED BY: [place] [address] PATHOLOGIST TRAILER RENTAL CLERK DUC QUIGLEY M.D. Performed By: #### C OVID19 FLU RSV, CEPHEID NEG #### [address] Ketones Ql (U) Negative Normal Negative [facility] Comment on above: Order Comment: Name Collection Type:: Clean-Voided Midstream Performed By: #### C OVID19 FLU RSV, CEPHEID NEG #### [address] Leukocyte esterase Test strip Ql (U) Negative Normal Negative [facility] Comment on above: Order Comment: Name Collection Type:: Clean-Voided Midstream Performed By: #### C OVID19 FLU RSV, CEPHEID NEG #### [place] [address] [place] Nitrite,Urine Negative Normal Negative [facility] Comment on above: Order Comment: Name Collection Type:: Clean-Voided Midstream Performed By: #### C OVID19 FLU RSV, CEPHEID NEG #### [address] Occult Blood,Urine Negative Normal Negative [facility] Comment on above: Order Comment: Name Collection Type:: Clean-Voided Midstream Result Comment: PERF ORMED BY: [place] [address] PATHOLOGIST TRAILER RENTAL CLERK DUC QUIGLEY M.D. Performed By: #### C OVID19 FLU RSV, CEPHEID NEG #### [address] pH (U) 6.0 [pH] Normal 5.0-9.0 [facility] Comment on above: Order Comment: Name Collection Type:: Clean-Voided Midstream Performed By: #### C OVID19 FLU RSV, CEPHEID NEG #### [address] Protein (U) [Mass/Vol] 30 mg/dL High Negative [facility] Comment on above: Order Comment: Name Collection Type:: Clean-Voided Midstream Performed By: #### C OVID19 FLU RSV, CEPHEID NEG #### [address] RBC,Urine None Seen Normal 0-4 [facility] Comment on above: Order Comment: Name Collection Type:: Clean-Voided Midstream Performed By: #### C OVID19 FLU RSV, CEPHEID NEG #### [address] Specificy [place],Urine 1.028 Normal 1.001-1.030 [facility] Comment on above: Order Comment: Name Collection Type:: Clean-Voided Midstream Performed By: #### C OVID19 FLU RSV, CEPHEID NEG #### [address] Squamous Epithelial Cell,Urine 1 [HPF] Normal 0-2 [facility] Comment on above: Order Comment: Name Collection Type:: Clean-Voided Midstream Performed By: #### C OVID19 FLU RSV, CEPHEID NEG #### [address] Urobilinogen,Urine Normal Normal Normal [facility] Comment on above: Order Comment: Name Collection Type:: Clean-Voided Midstream Performed By: #### C OVID19 FLU RSV, CEPHEID NEG #### [facility] [address] [place], [place] [id number] [facility] WBC,Urine 1 [HPF] Normal 0-4 [facility] Comment on above: Order Comment: Name Collection Type:: Clean-Voided Midstream Performed By: #### C OVID19 FLU RSV, CEPHEID NEG #### [facility] [address] [place], [place] [phone] [facility] ECG 12 lead ECGon 10-01-2024 ECG 12 lead ECG [facility] [place] [address] Electrocardiograph Report Signed Patient: Stephanie Zayas MR#: [id number] : 1990 Acct:[id number] Age/Sex: 34 / F ADM Date: 10/01/24 Loc: Room: [address] [place] [address] Type: ADM IN Attending Dr: Brayan Calderón [...] Septal infarct is now present Confirmed by ALAN WEBBER DO ([id number]) on 10/02/2024 2:01:30 AM Referred By: Electronically Signed By: ALAN WEBBER DO Transcribed By: MUS Signed By Alan Webber DO 0201 Normal [facility] ECG 12 lead ECG [facility] [place] [id number] Electrocardiograph Report Signed Patient: Stephanie Zayas MR#: [id number] : 1990 Acct:[id number] Age/Sex: 34 / F ADM Date: 10/01/24 Loc: ER Room: Type: [facility] ER Attending Dr: Ordering Provider: Alec Antoine [...] Prolonged QT Confirmed by Alec ANTOINE DO ([id number]) on 10/01/2024 2:09:05 PM Referred By: Electronically Signed By: Alec ANTOINE DO Transcribed By: MUS Signed By Alec Antoine DO 1 12/01/23 1409 Normal [facility] Eosinophils Auto (Bld) [#/Vo l]Ordered By: Alec Antoine on 10-01-2024 Eosinophils (Bld) [#/Vol] Automated eosinophil count High 0.0-0.45 [facility] Eosinophils/100 WBC Auto (Bl d)Ordered By: Alec Antoine on 10-01-2024 Eosinophils/100 WBC (Bld) Automated eosinophil % . [facility] Epithelial cells.squamous [# /area] in Urine sediment by Automated countOrdered By: Alec Antoine on 10-01-2024 Epithelial cells.squamous Auto (Urine sed) [#/Area] Epithelial cells.squamous [#/area] in Urine sediment by Automated count 0-2 [facility] Erythrocyte distribution wid th Auto (RBC) [Ratio]Ordered By: Alec Antoine on 10-01-2024 Erythrocyte distribution width (RBC) [Ratio] Erythrocyte distribution width [Ratio] by Automated count 11.9-15.3 [facility] Erythrocytes [#/area] in Uri ne sediment by Automated countOrdered By: Alec Antoine on 10-01-2024 RBC Auto (Urine sed) [#/Area] Erythrocytes [#/area] in Urine sediment by Automated count 0-4 [facility] Globulin Calc (S) [Mass/Vol] Ordered By: Alec Antoine on 10-01-2024 Globulin (S) [Mass/Vol] Serum globulin measurement by calculation (mass/volume) [facility] Glucose Poct Glucometerson 1 12-01-2023 Glucose [Mass/Vol] 224 mg/dL Normal [facility] Comment on above: Result Comment: [facility] Glucose Reference Range is dependent on time and content of last meal. Glucose of more than 200 mg/dL in a nonstressed, ambulatory subject supports the diagnosis of Diabetes Mellitus. PERFORMED BY: [place] [address] PATHOLOGIST TRAILER RENTAL CLERK DUC QUIGLEY M.D. Performed By: #### G LULS #### Point of Care testing , Glucose [Mass/Vol] 199 mg/dL Normal [facility] Comment on above: Result Comment: [facility] Glucose Reference Range is dependent on time and content of last meal. Glucose of more than 200 mg/dL in a nonstressed, ambulatory subject supports the diagnosis of Diabetes Mellitus. PERFORMED BY: [place] [address] PATHOLOGIST TRAILER RENTAL CLERK DUC QUIGLEY M.D. Performed By: #### M Musa, CMP #### [address] Glucose [Mass/volume] in Ser um or PlasmaOrdered By: Alec Antoine on 10-01-2024 Glucose [Mass/Vol] Glucose [Mass/volume ] in Serum or Plasma High 70-100 [facility] Comment on above: ADA recommended refe [...] in Urine by Test strip High Normal [facility] Hematocrit Auto (Bld) [Volum e fraction]Ordered By: Alec Antoine on 10-01-2024 Hematocrit (Bld) [Volume fraction] Hematocrit [Volume Fraction] of Blood by Automated count 34.0-46.4 [facility] Hemoglobin Test strip Ql (U) Ordered By: Alec Antoine on 10-01-2024 Hemoglobin Ql (U) Hemoglobin [Presence ] in Urine by Test strip Negative [facility] Hemoglobin [Mass/volume] in BloodOrdered By: Alec Antoine on 10-01-2024 Hemoglobin (Bld) [Mass/Vol] Hemoglobin [Mass/volume] in Blood 11.8-15.4 [facility] Hyaline casts [#/area] in Ur ine sediment by Automated countOrdered By: Alec Antoine on 10-01-2024 Hyaline casts Auto (Urine sed) [#/Area] Hyaline casts [#/area] in Urine sediment by Automated count 0-8 [facility] INR in Platelet poor plasma by Coagulation assayOrdered By: Alec Antoine on 10-01-2024 INR Coag (PPP) [Relative time] INR in Platelet poor plasma by Coagulation assay [facility] Comment on above: INR Therapeutic Rang e [...] i n Urine by Test strip Negative [facility] Lactate [Moles/volume] in Se rum or PlasmaOrdered By: Alec Antoine on 10-01-2024 Lactate [Moles/Vol] Lactate [Moles/volum e] in Serum or Plasma Critically high 0.5-2.2 [facility] Comment on above: Critical Result : Ca lled to and read back by: ADRIEL CHOI at: 10/01/2024 18:22:45 by:LFM Lactate [Moles/Vol] Lactate [Moles/volum e] in Serum or Plasma Critically high 0.5-2.2 [facility] Comment on above: Critical Result : Ca lled to and read back by: AMRIK LEWIS at: 10/01/2024 14:05:17 by:SHERRY Lactic Acidon 10-01-2024 Lactate [Moles/Vol] 2.0 mmol/L Off scale high 0.5-2.2 [facility] Comment on above: Result Comment: Crit ical Result : Called to and read back by: AMRIK LEWIS at: 10/01/2024 14:05:17 by:SHERRY PERFORMED BY: [place] [address] PATHOLOGIST TRAILER RENTAL CLERK DUC QUIGLEY M.D. Performed By: #### Yaakov Vigil, CMP #### [facility] [address] [place] [address] Lactic Acid Reflexon Lactic Acid Reflex 2.1 mmol/L Off scale high 0.5-2.2 [facility] Comment on above: Result Comment: Crit ical Result : Called to and read back by: ADRIEL CHOI at: 10/01/2024 18:22:45 by:LFM PERFORMED BY: [place] [address] PATHOLOGIST TRAILER RENTAL CLERK DUC QUIGLEY M.D. Performed By: #### Yaakov Vigil, CMP #### [address] Leukocyte esterase [Presence ] in Urine by Test stripOrdered By: Alec Antoine on 10-01-2024 Leukocyte esterase Test strip Ql (U) Leukocyte esterase [Presence] in Urine by Test strip Negative [facility] Leukocytes [#/area] in Urine sediment by Automated countOrdered By: Alec Antoine on 10-01-2024 WBC Auto (Urine sed) [#/Area] Leukocytes [#/area] in Urine sediment by Automated count 0-4 [facility] Leukocytes [#/volume] correc david for nucleated erythrocytes in Blood by Automated counOrdered By: Alec Antoine on 10-01-2024 WBC corrected for nucl RBC Auto (Bld) [#/Vol] Leukocytes [#/volume] corrected for nucleated erythrocytes in Blood by Automated coun High 3.8-11.6 [facility] Lymphocytes Auto (Bld) [#/Vo l]Ordered By: Alec Antoine on 10-01-2024 Lymphocytes (Bld) [#/Vol] Lymphocytes [#/volume] in Blood by Automated count 1.00-4.8 [facility] Lymphocytes/100 WBC Auto (Bl d)Ordered By: Alec Antoine on 10-01-2024 Lymphocytes/100 WBC (Bld) Lymphocytes/100 leukocytes in Blood by Automated count . [facility] MCH Auto (RBC) [Entitic mass ]Ordered By: Alec Antoine on 10-01-2024 MCH (RBC) [Entitic mass] MCH [Entitic mass] by Automated count 24.7-34.3 [facility] MCHC Auto (RBC) [Mass/Vol]Or dered By: Alec Antoine on 10-01-2024 MCHC (RBC) [Mass/Vol] MCHC [Mass/volume] by Automated count High 32.0-35.0 [facility] MCV Auto (RBC) [Entitic vol] Ordered By: Alec Antoine on 10-01-2024 MCV (RBC) [Entitic vol] MCV [Entitic volume] by Automated count 80-100 [facility] Magnesiumon 10-01-2024 Magnesium [Mass/Vol] 1.7 mg/dL Low 1.9-2.7 [facility] Comment on above: Result Comment: PERF ORMED BY: [place] [address] PATHOLOGIST TRAILER RENTAL CLERK DUC QUIGLEY M.D. Performed By: #### M G, CMP #### [address] Magnesium [Mass/volume] in S zully or PlasmaOrdered By: Alec Antoine on 10-01-2024 Magnesium [Mass/Vol] Magnesium [Mass/vol ume] in Serum or Plasma Low 1.9-2.7 [facility] Monocyte distribution width [Entitic volume] in Blood by AutomatedOrdered By: Alec Antoine on 10-01-2024 Monocyte distribution width Auto (Bld) [Entitic vol] Monocyte distribution width [Entitic volume] in Blood by Automated 0.00-20.00 [facility] Monocytes Auto (Bld) [#/Vol] Ordered By: Alec Antoine on 10-01-2024 Monocytes (Bld) [#/Vol] Automated blood monocyte count High 0.0-0.8 [facility] Monocytes/100 WBC Auto (Bld) Ordered By: Alec Antoine on 10-01-2024 Monocytes/100 WBC (Bld) Automated monocyte % . [facility] Natriuretic peptide B [Mass/ Vol]Ordered By: Alec Antoine on 10-01-2024 Natriuretic peptide B (Bld) [Mass/Vol] BNP ser/plas 5-100 [facility] Neutrophils Auto (Bld) [#/Vo l]Ordered By: Alec Antoine on 10-01-2024 Neutrophils (Bld) [#/Vol] Neutrophils [#/volume] in Blood by Automated count High 1.8-7.7 [facility] Neutrophils/100 WBC Auto (Bl d)Ordered By: Alec Antoine on 10-01-2024 Neutrophils/100 WBC (Bld) Automated neutrophil % . [facility] Nitrite Test strip Ql (U)Ord ered By: Alec Antoine on 10-01-2024 Nitrite Ql (U) Nitrite [Presence] i n Urine by Test strip Negative [facility] No Panel InformationOrdered By: Alec Antoine on 10-01-2024 Estimated GFR (CKD-EPI) > 60.0 mL/Min [facility] Creatinine Clearance (Chem 176.33 [facility] Nucleated erythrocytes [Pres ence] in Blood by Automated countOrdered By: Alec Antoine on 10-01-2024 Nucleated RBC Auto Ql (Bld) Nucleated erythrocytes [Presence] in Blood by Automated count 0-0.5 [facility] Partial Thromboplastin Timeo n 10-01-2024 aPTT Coag (Bld) [Time] 33.7 s Normal 25.1-36.5 [facility] Comment on above: Result Comment: A he matocrit value greater than 55% may lead to inaccurate results in coagulation testing. Patients having hematocrit values >55% require a special collection tube for coagulation studies. Please contact the laboratory at [phone] for redraw instructions. PERFORMED BY: [facility] [place] [address] PATHOLOGIST TRAILER RENTAL CLERK DUC QUIGLEY M.D. Performed By: #### C OVID19 FLU RSV, CEPHEID NEG #### [address] Platelet mean volume Auto (B ld) [Entitic vol]Ordered By: Alec Antoine on 10-01-2024 Platelet mean volume (Bld) [Entitic vol] Platelet mean volume [Entitic volume] in Blood by Automated count Low 6.3-10.7 [facility] Platelets Auto (Bld) [#/Vol] Ordered By: Alec Antoine on 10-01-2024 Platelets (Bld) [#/Vol] Platelets [#/volume] in Blood by Automated count 150-450 [facility] Potassium [Moles/volume] in Serum or PlasmaOrdered By: Alec Antoine on 10-01-2024 Potassium [Moles/Vol] Potassium [Moles/v olume] in Serum or Plasma 3.5-5.1 [facility] Protein Test strip (U) [Mass /Vol]Ordered By: Alec Antoine on 10-01-2024 Protein (U) [Mass/Vol] Protein [Mass/vol ume] in Urine by Test strip High Negative [facility] Protein [Mass/volume] in Ser um or PlasmaOrdered By: Alec Antoine on 10-01-2024 Protein [Mass/Vol] Protein [Mass/volume ] in Serum or Plasma 6.4-8.9 [facility] Prothrombin Time INRon 10-01 INR Coag (PPP) [Relative time] 1.0 {INR} Normal [facility] Comment on above: Result Comment: [...] C OVID19 FLU RSV, CEPHEID NEG #### [address] PT Coag (PPP) [Time] 11.8 s Normal 9.0-12.9 [facility] Comment on above: Result Comment: A he matocrit value greater than 55% may lead to inaccurate results in coagulation testing. Patients having hematocrit values >55% require a special collection tube for coagulation studies. Please contact the laboratory at [phone] for redraw instructions. Performed By: #### C OVID19 FLU RSV, CEPHEID NEG #### [facility] [address] Prothrombin time (PT)Ordered By: Alec Antoine on 10-01-2024 PT Coag (PPP) [Time] Prothrombin time (PT) 9.0- 12.9 [facility] Comment on above: A hematocrit value g reater than 55% may lead to inaccurate results in coagulation testing. Patients having hematocrit values >55% require a special collection tube for coagulation studies. Please contact the laboratory at [phone] for redraw instructions. RBC Auto (Bld) [#/Vol]Ordere d By: Alec Antoine on 10-01-2024 RBC (Bld) [#/Vol] Erythrocytes [#/volu me] in Blood by Automated count 3.60-5.00 [facility] Respiratory specimen influen za A virus, influenza B virus, respiratory syncytical virOrdered By: Alec Antoine on 10-01-2024 SARS-CoV-2 (COVID-19) RNA STEPHAN+probe Ql (Unsp spec) Respiratory specimen influenza A virus, influenza B virus, respiratory syncytical vir [facility] Serum or plasma albumin/glob ulin mass ratioOrdered By: Alec Antoine on 10-01-2024 Albumin/Globulin [Mass ratio] Serum or plasma albumin/globulin mass ratio [facility] Serum or plasma anion gap de terminationOrdered By: Alec Antoine on 10-01-2024 Anion gap [Moles/Vol] Serum or plasma an ion gap determination 6.0-15.0 [facility] Sodium [Moles/volume] in Ser um or PlasmaOrdered By: Alec Antoine on 10-01-2024 Sodium [Moles/Vol] Sodium [Moles/volume ] in Serum or Plasma Low 136-145 [facility] Specific gravity Test strip (U) [Rel density]Ordered By: Alec Antoine on 10-01-2024 Specific gravity (U) [Rel density] Specific gravity of Urine by Test strip 1.001-1.030 [facility] Troponin I High Sensitivityo n 10-01-2024 Troponin I High Sensitivity 2.9 pg/mL Normal 0.0-15.0 [facility] Comment on above: Result Comment: PERF ORMED BY: [place] [address] PATHOLOGIST TRAILER RENTAL CLERK DUC QUIGLEY M.D. Performed By: #### B SET UP MECHANIC AUTOMATIC LINE, PTT, PT, CBC, HS TROP, CK #### [facility] [address] Troponin I.cardiac [Mass/vol ume] in Serum or Plasma by Detection limit <= 0.01 ng/Ordered By: Alec Antoine on 10-01-2024 Troponin I.cardiac DL <= 0.01 ng/mL [Mass/Vol] Troponin I.cardiac [Mass/volume] in Serum or Plasma by Detection limit <= 0.01 ng/ 0.0-15.0 [facility] Urea nitrogen [Mass/volume] in Serum or PlasmaOrdered By: Alec Antoine on 10-01-2024 Urea nitrogen [Mass/Vol] Urea nitrogen [Mass/volume] in Serum or Plasma 7-25 [facility] Urobilinogen Test strip (U) [Mass/Vol]Ordered By: Alec Antoine on 10-01-2024 Urobilinogen (U) [Mass/Vol] Urobilinogen [Mass/volume] in Urine by Test strip Normal [facility] WBC Auto (Bld) [#/Vol]Ordere d By: Alec Antoine on 10-01-2024 WBC (Bld) [#/Vol] Leukocytes [#/volume ] in Blood by Automated count High 3.8-11.6 [facility] X-ray reportOrdered By: Zoya Busby on 10-01-2024 Study report [facility] [place] [address] [place] [address] XRay Report Signed Patient: Stephanie Zayas MR#: [id number] : 1990 Acct:[id number] Age/Sex: 34 / F ADM Date: 4 Loc: ER Room: Type: [facility] ER Attending Dr: Copies to: Alec Antoine [...] Zoya Busby M.D.10/01/2024 12:50 PM Dictation Location: [place] [address] Transcribed By: [facility] 10/01/24 1250 Dictated By: Zoya Busby II, MD 10/01/24 1250 Signed By: 10/01/24 1250 [facility] Work Phone: XR chest 2V*on 10-01-2024 XR chest 2V* [facility] [place] [address] XRay Report Signed Patient: Stephanie Zayas MR#: [id number] : 1990 Acct:[id number] Age/Sex: 34 / F ADM Date: 10/01/24 Loc: ER Room: Type: [facility] ER Attending Dr: Copies to: Alec Antoine [...] Zoya Busby M.D.10/01/2024 12:50 PM Dictation Location: [place] [address] Transcribed By: [facility] 10/01/24 1250 Dictated By: Zoya Busby II, MD 10/01/241249 Signed By: 10/01/24 1250 Normal [facility] aPTT in Platelet poor plasma by Coagulation assayOrdered By: Alec Antoine on 10-01-2024 aPTT Coag (PPP) [Time] Activated partial thromboplastin time (aPTT) in platelet poor plasma by coagulation a 25.1-36.5 [facility] Comment on above: A hematocrit value g reater than 55% may lead to inaccurate results in coagulation testing. Patients having hematocrit values >55% require a special collection tube for coagulation studies. Please contact the laboratory at [phone] for redraw instructions. pH Test strip (U)Ordered By: Alec Antoine on 10-01-2024 pH (U) pH of Urine by Test strip 5.0-9.0 [facility] Alanine aminotransferase [En zymatic activity/volume] in Serum or PlasmaOrdered By: Vignesh Vogel on 09-03-2024 ALT [Catalytic activity/Vol] 77 U/L [address] Comment on above: Order Comment: Reaso n for Exam Routine lab draw Performed By: #### M G, CMP #### [address] ALT [Catalytic activity/Vol] Alanine aminotransferase [Enzymatic activity/volume] in Serum or Plasma [address] Albumin [Mass/volume] in Ser um or Plasma by Bromocresol green (BCG) dye binding methoOrdered By: Vignesh Vogel on 09-03-2024 Albumin BCG dye [Mass/Vol] 4.6 g/dL 3.5-5.7 [facility] Albumin BCG dye [Mass/Vol] Albumin [Mass/volume] in Serum or Plasma by Bromocresol green (BCG) dye binding metho 3.5-5.7 [facility] Alkaline phosphatase [Enzyma tic activity/volume] in Serum or PlasmaOrdered By: Vignesh Vogel on 09-03-2024 ALP [Catalytic activity/Vol] 92 U/L Normal 34-104 [facility] Comment on above: Order Comment: Reaso n for Exam Routine lab draw Performed By: #### M G, CMP #### [address] ALP [Catalytic activity/Vol] Alkaline phosphatase [Enzymatic activity/volume] in Serum or Plasma 34-104 [facility] Aspartate aminotransferase [ Enzymatic activity/volume] in Serum or PlasmaOrdered By: Vignesh Vogel on 09-03-2024 AST [Catalytic activity/Vol] 49 U/L High 13-39 [facility] Comment on above: Order Comment: Reaso n for Exam Routine lab draw Performed By: #### M G, CMP #### [address] AST [Catalytic activity/Vol] Aspartate aminotransferase [Enzymatic activity/volume] in Serum or Plasma High 1339 [facility] Automated basophil %Ordered By: Vignesh Vogel on 09-03-2024 Basophils/100 WBC (Bld) 0.5 % Normal . [facility] Comment on above: Order Comment: Reaso n for Exam Routine lab draw Performed By: #### M G, CMP #### [facility] [address] [place] [address] Automated basophil countOrde red By: Vignesh Vogel on 09-03-2024 Basophils (Bld) [#/Vol] 0.1 10*3/uL Normal 0.0-0.2 [facility] Comment on above: Order Comment: Reaso n for Exam Routine lab draw Result Comment: PERF ORMED BY: [place] [address] PATHOLOGIST TRAILER RENTAL CLERK DUC QUIGLEY M.D. Performed By: #### M G, CMP #### [facility] [address] [place] [address] Automated blood monocyte cou ntOrdered By: Vignesh Vogel on 09-03-2024 Monocytes (Bld) [#/Vol] 1.0 10*3/uL High 0.0-0.8 [facility] Comment on above: Order Comment: Reaso n for Exam Routine lab draw Performed By: #### M G, CMP #### [address] Automated eosinophil %Ordere d By: Vignesh Vogel on 09-03-2024 Eosinophils/100 WBC (Bld) 1.2 % Normal . [facility] Comment on above: Order Comment: Reaso n for Exam Routine lab draw Performed By: #### M G, CMP #### [address] Automated eosinophil countOr dered By: Vignesh Vogel on 09-03-2024 Eosinophils (Bld) [#/Vol] 0.2 10*3/uL Normal 0.0-0.45 [facility] Comment on above: Order Comment: Reaso n for Exam Routine lab draw Performed By: #### M G, CMP #### [address] Automated monocyte %Ordered By: Vignesh Vogel on 09-03-2024 Monocytes/100 WBC (Bld) 7.0 % Normal . [facility] Comment on above: Order Comment: Reaso n for Exam Routine lab draw Performed By: #### M G, CMP #### [address] Automated neutrophil %Ordere d By: Vignesh Vogel on 09-03-2024 Neutrophils/100 WBC (Bld) 71.4 % Normal . [facility] Comment on above: Order Comment: Reaso n for Exam Routine lab draw Performed By: #### M G, CMP #### [address] Basophils Auto (Bld) [#/Vol] Ordered By: Vignesh Vogel on 09-03-2024 Basophils (Bld) [#/Vol] Automated basophil count 0.0-0.2 [facility] Basophils/100 WBC Auto (Bld) Ordered By: Vignesh Vogel on 09-03-2024 Basophils/100 WBC (Bld) Automated basophil % . [facility] Bilirubin.total [Mass/volume ] in Serum or PlasmaOrdered By: Vignesh Vogel on 09-03-2024 Bilirubin [Mass/Vol] 0.8 mg/dL Normal 0.3-1.0 [facility] Comment on above: Order Comment: Reaso n for Exam Routine lab draw Performed By: #### M G, CMP #### [facility] [address] [place] [id number] [place] Bilirubin [Mass/Vol] Bilirubin.total [Mass/volume] in Serum or Plasma 0.3-1.0 [facility] Calcium [Mass/volume] in Ser um or PlasmaOrdered By: Vignesh Vogel on 09-03-2024 Calcium [Mass/Vol] 9.4 mg/dL Normal 8.6-10.3 [facility] Comment on above: Order Comment: Reaso n for Exam Routine lab draw Performed By: #### M G, CMP #### [place] [id number] [facility] Calcium [Mass/Vol] Calcium [Mass/volume ] in Serum or Plasma 8.6-10.3 [facility] Carbon dioxide, total [Moles /volume] in Serum or PlasmaOrdered By: Vignesh Vogel on 09-03-2024 CO2 [Moles/Vol] 23.8 mmol/L Normal 21.0-31.0 [facility] Comment on above: Order Comment: Reaso n for Exam Routine lab draw Performed By: #### M G, CMP #### [place] [id number] [place] CO2 [Moles/Vol] Carbon dioxide, tota l [Moles/volume] in Serum or Plasma 21.0-31.0 [facility] Chloride [Moles/volume] in S zully or PlasmaOrdered By: Vignesh Vogel on 09-03-2024 Chloride [Moles/Vol] 100 mmol/L Normal 98-107 [facility] Comment on above: Order Comment: Reaso n for Exam Routine lab draw Performed By: #### M G, CMP #### [place] [id number] [place] Chloride [Moles/Vol] Chloride [Moles/vol ume] in Serum or Plasma 98-107 [facility] Cholesterol [Mass/volume] in Serum or PlasmaOrdered By: Vignesh Vogel on 09-03-2024 Cholesterol [Mass/Vol] 196 mg/dL Normal 140-200 [facility] Comment on above: Chol less than 200 m g/dl low riskChol 201-239 mg/dl borderline riskChol 240 mg/dl and greater high risk Order Comment: Reaso n for Exam Routine lab draw Result Comment: Chol less than 200 mg/dl low risk Chol 201-239 mg/dl borderline risk Chol 240 mg/dl and greater high risk Performed By: #### M G, CMP #### [address] Cholesterol [Mass/Vol] Cholesterol [Mass /volume] in Serum or Plasma 140-200 [facility] Comment on above: Chol less than 200 m g/dl low riskChol 201-239 mg/dl borderline riskChol 240 mg/dl and greater high risk Cholesterol in HDL [Mass/vol ume] in Serum or PlasmaOrdered By: Vignesh Vogel on 09-03-2024 Cholesterol in HDL [Mass/Vol] Serum or plasma high density lipoprotein (HDL) cholesterol measurement 23-92 [facility] Comment on above: HDL CHOL ATP-III CLA SSIFICATION Cardiovascular RiskHDL > or equal to 60 mg/dL LOWHDL < 40 mg/dL HIGH Cholesterol in LDL Calc [Mas s/Vol]Ordered By: Vignesh Vogel on 09-03-2024 Cholesterol in LDL [Mass/Vol] [facility] Comment on above: Test not performed Cholesterol in LDL [Mass/Vol] Cholesterol in LDL [Mass/volume] in Serum or Plasma by calculation [facility] Comment on above: Test not performed Cholesterol in LDL [Mass/vol ume] in Serum or PlasmaOrdered By: Vignesh Vogel on 09-03-2024 Cholesterol in LDL [Mass/Vol] 112 mg/dL High 0-100 [facility] Comment on above: LDL ATP III CLASSIFI CATIONLDL less than 100 mg/dL OptimalLDL 100-129 mg/dL Near or above optimalLDL 130-159 mg/dL Borderline highLDL 160-189 mg/dL HighLDL greater than 189 mg/dL Very high Cholesterol in LDL [Mass/Vol] Cholesterol in LDL [Mass/volume] in Serum or Plasma High 0-100 [facility] Comment on above: LDL ATP III CLASSIFI CATIONLDL less than 100 mg/dL OptimalLDL 100-129 mg/dL Near or above optimalLDL 130-159 mg/dL Borderline highLDL 160-189 mg/dL HighLDL greater than 189 mg/dL Very high Cholesterol in VLDL Calc [Ma ss/Vol]Ordered By: Vignesh Vogel on 09-03-2024 Cholesterol in VLDL [Mass/Vol] 90 mg/dL [facility] Cholesterol in VLDL [Mass/Vol] Cholesterol in VLDL [Mass/volume] in Serum or Plasma by calculation [facility] Complete Blood Count Auto Di ffon 09-03-2024 Mean Corpuscular HGB Conc 35.0 g/dL Normal 32.0-35.0 [facility] Comment on above: Order Comment: Reaso n for Exam Routine lab draw Performed By: #### Yaakov Vigil, CMP #### [facility] [address] [place] [address] NRBC% 0.0 /100{WBC} Normal 0-0.5 [facility] Comment on above: Order Comment: Reaso n for Exam Routine lab draw Performed By: #### Yaakov G, CMP #### [facility] [address] [place] [address] [place] Comprehensive Metabolic Pane reece 09-03-2024 Albumin [Mass/Vol] 4.6 g/dL Normal 3.5-5.7 [facility] Comment on above: Order Comment: Reaso n for Exam Routine lab draw Performed By: #### M G, CMP #### [facility] [address] [place] [address] [place] GFR/1.73 sq M.predicted MDRD (S/P/Bld) [Vol rate/Area] mL/min/{1.73_m2} Normal [facility] Comment on above: Order Comment: Reaso n for Exam Routine lab draw Performed By: #### M G, CMP #### [facility] [address] [place] [address] [place] Creatinine [Mass/volume] in Serum or PlasmaOrdered By: Vignesh Vogel on 09-03-2024 Creatinine [Mass/Vol] 0.61 mg/dL Normal 0.60-1.20 [facility] Comment on above: Order Comment: Reaso n for Exam Routine lab draw Performed By: #### M Musa, CMP #### [facility] [address] [place] [address] Creatinine [Mass/Vol] Creatinine [Mass/v olume] in Serum or Plasma 0.60-1.20 [facility] Eosinophils Auto (Bld) [#/Vo l]Ordered By: Vignesh Vogel on 09-03-2024 Eosinophils (Bld) [#/Vol] Automated eosinophil count 0.0-0.45 [facility] Eosinophils/100 WBC Auto (Bl d)Ordered By: Vignesh Vogel on 09-03-2024 Eosinophils/100 WBC (Bld) Automated eosinophil % . [facility] Erythrocyte distribution wid th Auto (RBC) [Ratio]Ordered By: Vignesh Vogel on 09-03-2024 Erythrocyte distribution width (RBC) [Ratio] Erythrocyte distribution width [Ratio] by Automated count 11.9-15.3 [facility] Erythrocyte distribution wid th [Ratio] by Automated countOrdered By: Vignesh Vogel on 09-03-2024 Erythrocyte distribution width (RBC) [Ratio] 12.4 % Normal 11.9-15.3 [facility] Comment on above: Order Comment: Reaso n for Exam Routine lab draw Performed By: #### Yaakov Vigil, CMP #### [facility] [address] [place] [address] Erythrocytes [#/volume] in B lood by Automated countOrdered By: Vignesh Vogel on 09-03-2024 RBC (Bld) [#/Vol] 4.81 10*6/uL Normal 3.60-5.00 [facility] Comment on above: Order Comment: Reaso n for Exam Routine lab draw Performed By: #### Yaakov Vigil, CMP #### [address] Globulin Calc (S) [Mass/Vol] Ordered By: Vignesh Vogel on 09-03-2024 Globulin (S) [Mass/Vol] Serum globulin measurement by calculation (mass/volume) [facility] Glucose [Mass/volume] in Ser um or PlasmaOrdered By: Vignesh Vogel on 09-03-2024 Glucose [Mass/Vol] 195 mg/dL High 70-100 [facility] Comment on above: ADA recommended refe rence rangeRandom Glucose Reference Range is dependent on time and content of last meal. Glucose of more than 200 mg/dL in a nonstressed, ambulatory subject supports the diagnosis of Diabetes Mellitus. Order Comment: Reaso n for Exam Routine lab draw Result Comment: Marvin om Glucose Reference Range is dependent on time and content of last meal. Glucose of more than 200 mg/dL in a nonstressed, ambulatory subject supports the diagnosis of Diabetes Mellitus. ADA recommended reference range Performed By: #### M G, CMP #### [facility] [address] Glucose [Mass/Vol] Glucose [Mass/volume ] in Serum or Plasma High 70-100 [facility] Comment on above: ADA recommended refe rence rangeRandom Glucose Reference Range is dependent on time and content of last meal. Glucose of more than 200 mg/dL in a nonstressed, ambulatory subject supports the diagnosis of Diabetes Mellitus. Hematocrit Auto (Bld) [Volum e fraction]Ordered By: Vignesh Vogel on 09-03-2024 Hematocrit (Bld) [Volume fraction] Hematocrit [Volume Fraction] of Blood by Automated count 34.0-46.4 [facility] Hematocrit [Volume Fraction] of Blood by Automated countOrdered By: Vignesh Vogel on 09-03-2024 Hematocrit (Bld) [Volume fraction] 41.2 % Normal 34.0-46.4 [facility] Comment on above: Order Comment: Reaso n for Exam Routine lab draw Performed By: #### M G, CMP #### [facility] [address] [place] [id number] [place] Hemoglobin [Mass/volume] in BloodOrdered By: Vignesh Vogel on 09-03-2024 Hemoglobin (Bld) [Mass/Vol] 14.4 g/dL Normal 11.8-15.4 [facility] Comment on above: Order Comment: Reaso n for Exam Routine lab draw Performed By: #### M G, CMP #### [facility] [address] [place] [id number] [place] Hemoglobin (Bld) [Mass/Vol] Hemoglobin [Mass/volume] in Blood 11.8-15.4 [facility] LDL Cholesterol Measuredon 1 LDL Cholesterol Measured 112 mg/dL High 0-100 [facility] Comment on above: Order Comment: Reaso n for Exam Routine lab draw Result Comment: LDL ATP III CLASSIFICATION LDL less than 100 mg/dL Optimal LDL 100-129 mg/dL Near or above optimal LDL 130-159 mg/dL Borderline high LDL 160-189 mg/dL High LDL greater than 189 mg/dL Very high PERFORMED BY: [place] [address] PATHOLOGIST TRAILER RENTAL CLERK DUC QUIGLEY M.D. Performed By: #### Yaakov G, CMP #### [facility] [address] Leukocytes [#/volume] correc david for nucleated erythrocytes in Blood by Automated counOrdered By: Vignesh Vogel on 09-03-2024 WBC corrected for nucl RBC Auto (Bld) [#/Vol] 13.8 10*3/uL High 3.8-11.6 [facility] WBC corrected for nucl RBC Auto (Bld) [#/Vol] Leukocytes [#/volume] corrected for nucleated erythrocytes in Blood by Automated coun [facility] 3.8-11.6 [facility] Leukocytes [#/volume] in Blo od by Automated countOrdered By: Vignesh Vogel on 09-03-2024 WBC (Bld) [#/Vol] 13.8 10*3/uL [facility] 3.-11.6 [facility] Comment on above: Order Comment: Reaso n for Exam Routine lab draw Performed By: #### M G, CMP #### [facility] [address] Lipid Panelon 09-03-2024 LDL Cholesterol,Calculated Not performed Normal 0-100 [facility] Comment on above: Order Comment: Reaso n for Exam Routine lab draw Performed By: #### M G, CMP #### [facility] [address] [place] [address] [place] Triglyceride w/Reflex 450 mg/dL High 0-149 [facility] Comment on above: Order Comment: [...] Performed By: #### M G, CMP #### [address] VLDL CHOLESTEROL 90 mg/dL Normal [facility] Comment on above: Order Comment: Reaso n for Exam Routine lab draw Performed By: #### M G, CMP #### [address] Lymphocytes Auto (Bld) [#/Vo l]Ordered By: Vignesh Vogel on 09-03-2024 Lymphocytes (Bld) [#/Vol] Lymphocytes [#/volume] in Blood by Automated count 1.00-4.8 [facility] Lymphocytes [#/volume] in Bl ood by Automated countOrdered By: Vignesh Vogel on 09-03-2024 Lymphocytes (Bld) [#/Vol] 2.8 10*3/uL Normal 1.00-4.8 [facility] Comment on above: Order Comment: Reaso n for Exam Routine lab draw Performed By: #### M G, CMP #### [address] Lymphocytes/100 WBC Auto (Bl d)Ordered By: Vignesh Vogel on 09-03-2024 Lymphocytes/100 WBC (Bld) Lymphocytes/100 leukocytes in Blood by Automated count . [facility] Lymphocytes/100 leukocytes i n Blood by Automated countOrdered By: Vignesh Vogel on 09-03-2024 Lymphocytes/100 WBC (Bld) 19.9 % Normal . [facility] Comment on above: Order Comment: Reaso n for Exam Routine lab draw Performed By: #### M G, CMP #### [address] MCH Auto (RBC) [Entitic mass ]Ordered By: Vignesh Vogel on 09-03-2024 MCH (RBC) [Entitic mass] MCH [Entitic mass] by Automated count 24.7-34.3 [facility] MCH [Entitic mass] by Automa david countOrdered By: Vignesh Vogel on 09-03-2024 MCH (RBC) [Entitic mass] 30.0 pg Normal 24.7-34.3 [facility] Comment on above: Order Comment: Reaso n for Exam Routine lab draw Performed By: #### M Musa, CMP #### [facility] [address] [place] [address] MCHC Auto (RBC) [Mass/Vol]Or dered By: Vignesh Vogel on 09-03-2024 MCHC (RBC) [Mass/Vol] 35.0 g/dL 32.0-35.0 [facility] MCHC (RBC) [Mass/Vol] MCHC [Mass/volume] by Automated count 32.0-35.0 [facility] MCV Auto (RBC) [Entitic vol] Ordered By: Vignesh Vogel on 09-03-2024 MCV (RBC) [Entitic vol] MCV [Entitic volume] by Automated count 80-100 [facility] MCV [Entitic volume] by Auto mated countOrdered By: Vignesh Vogel on 09-03-2024 MCV (RBC) [Entitic vol] 85.7 fL Normal 80-100 [facility] Comment on above: Order Comment: Reaso n for Exam Routine lab draw Performed By: #### M Musa, CMP #### [facility] [address] [place] [address] Monocytes Auto (Bld) [#/Vol] Ordered By: Vignesh Vogel on 09-03-2024 Monocytes (Bld) [#/Vol] Automated blood monocyte count High 0.0-0.8 [facility] Monocytes/100 WBC Auto (Bld) Ordered By: Vignesh Vogel on 09-03-2024 Monocytes/100 WBC (Bld) Automated monocyte % . [facility] Neutrophils Auto (Bld) [#/Vo l]Ordered By: Vignesh Vogel on 09-03-2024 Neutrophils (Bld) [#/Vol] Neutrophils [#/volume] in Blood by Automated count High 1.8-7.7 [facility] Neutrophils [#/volume] in Bl ood by Automated countOrdered By: Vignesh Vogel on 09-03-2024 Neutrophils (Bld) [#/Vol] 9.9 10*3/uL High 1.8-7.7 [facility] Comment on above: Order Comment: Reaso n for Exam Routine lab draw Performed By: #### M G, CMP #### [facility] [address] [place] [address] [place] Neutrophils/100 WBC Auto (Bl d)Ordered By: Vignesh Vogel on 09-03-2024 Neutrophils/100 WBC (Bld) Automated neutrophil % . [facility] No Panel InformationOrdered By: Vignesh Vogel on 09-03-2024 Estimated GFR (CKD-EPI) > 60.0 mL/Min [facility] Creatinine Clearance (Chem N/A [facility] Nucleated erythrocytes [Pres ence] in Blood by Automated countOrdered By: Vignesh Vogel on 09-03-2024 Nucleated RBC Auto Ql (Bld) 0.0 /100{WBC} 0-0.5 [facility] Nucleated RBC Auto Ql (Bld) Nucleated erythrocytes [Presence] in Blood by Automated count 0-0.5 [facility] Platelet mean volume Auto (B ld) [Entitic vol]Ordered By: Vignesh Vogel on 09-03-2024 Platelet mean volume (Bld) [Entitic vol] Platelet mean volume [Entitic volume] in Blood by Automated count 6.3-10.7 [facility] Platelet mean volume [Entiti c volume] in Blood by Automated countOrdered By: Vignesh Vogel on 09-03-2024 Platelet mean volume (Bld) [Entitic vol] 6.4 fL Normal 6.3-10.7 [facility] Comment on above: Order Comment: Reaso n for Exam Routine lab draw Performed By: #### M G, CMP #### [facility] [address] [place] [address] [place] Platelets Auto (Bld) [#/Vol] Ordered By: Vignesh Vogel on 09-03-2024 Platelets (Bld) [#/Vol] Platelets [#/volume] in Blood by Automated count 150-450 [facility] Platelets [#/volume] in Bloo d by Automated countOrdered By: Vignesh Vogel on 09-03-2024 Platelets (Bld) [#/Vol] 388 10*3/uL Normal 150-450 [facility] Comment on above: Order Comment: Reaso n for Exam Routine lab draw Performed By: #### M G, CMP #### [facility] [address] [place] [id number] [place] Potassium [Moles/volume] in Serum or PlasmaOrdered By: Vignesh Vogel on 09-03-2024 Potassium [Moles/Vol] 4.2 mmol/L Normal 3.5-5.1 [facility] Comment on above: Order Comment: Reaso n for Exam Routine lab draw Performed By: #### M G, CMP #### [facility] [address] [place] [id number] [facility] Potassium [Moles/Vol] Potassium [Moles/v olume] in Serum or Plasma 3.5-5.1 [facility] Protein [Mass/volume] in Ser um or PlasmaOrdered By: Vignesh Vogel on 09-03-2024 Protein [Mass/Vol] 8.0 g/dL Normal 6.4-8.9 [facility] Comment on above: Order Comment: Reaso n for Exam Routine lab draw Performed By: #### M G, CMP #### [facility] [address] [place], [place] [id number] [place] Protein [Mass/Vol] Protein [Mass/volume ] in Serum or Plasma 6.4-8.9 [facility] RBC Auto (Bld) [#/Vol]Ordere d By: Vignesh Vogel on 09-03-2024 RBC (Bld) [#/Vol] Erythrocytes [#/volu me] in Blood by Automated count 3.60-5.00 [facility] Serum globulin measurement b y calculation (mass/volume)Ordered By: Vignesh Vogel on 09-03-2024 Globulin (S) [Mass/Vol] 3.4 g/dL Normal [facility] Comment on above: Order Comment: Makayla lopez for Exam Routine lab draw Performed By: #### M G, CMP #### [facility] [address] Serum or plasma albumin/glob ulin mass ratioOrdered By: Vignesh Vogel on 09-03-2024 Albumin/Globulin [Mass ratio] 1.4 {ratio} Normal [facility] Comment on above: Order Comment: Makayla n for Exam Routine lab draw Performed By: #### M G, CMP #### [facility] [address] [place] [address] Albumin/Globulin [Mass ratio] Serum or plasma albumin/globulin mass ratio [facility] Serum or plasma anion gap de terminationOrdered By: Vignesh Vogel on 09-03-2024 Anion gap [Moles/Vol] 15.4 mmol/L High 6.0-15.0 [facility] Comment on above: Order Comment: Makayla lopez for Exam Routine lab draw Performed By: #### M Musa, CMP #### [facility] [address] [place] [address] Anion gap [Moles/Vol] Serum or plasma an ion gap determination High 6.0-15.0 [facility] Serum or plasma high density lipoprotein (HDL) cholesterol measurementOrdered By: Vignesh Vogel on 09-03-2024 Cholesterol in HDL [Mass/Vol] 28 mg/dL Normal 23-92 [facility] Comment on above: HDL CHOL ATP-III CLA SSIFICATION Cardiovascular RiskHDL > or equal to 60 mg/dL LOWHDL < 40 mg/dL HIGH Order Comment: Makayla lopez for Exam Routine lab draw Result Comment: HDL CHOL ATP-III CLASSIFICATION Cardiovascular Risk HDL > or equal to 60 mg/dL LOW HDL < 40 mg/dL HIGH Performed By: #### M G, CMP #### [facility] [address] [place] [address] Serum or plasma total choles terol/high density lipoprotein (HDL) cholesterol mass ratOrdered By: Vignesh Vogel on 09-03-2024 Cholesterol.total/Chol esterol in HDL [Mass ratio] 7.0 {ratio} Normal <5.0 [facility] Comment on above: Order Comment: Reaso n for Exam Routine lab draw Result Comment: PERF ORMED BY: [place] [address] PATHOLOGIST TRAILER RENTAL CLERK DUC QUIGLEY M.D. Performed By: #### M G, CMP #### [facility] [address] Cholesterol.total/Chol esterol in HDL [Mass ratio] Serum or plasma total cholesterol/high density lipoprotein (HDL) cholesterol mass rat <5.0 [facility] Sodium [Moles/volume] in Ser um or PlasmaOrdered By: Vignesh Vogel on 09-03-2024 Sodium [Moles/Vol] 135 mmol/L Low 136-145 [facility] Comment on above: Order Comment: Reaso n for Exam Routine lab draw Performed By: #### M G, CMP #### [facility] [address] Sodium [Moles/Vol] Sodium [Moles/volume ] in Serum or Plasma Low 136-145 [facility] Triglyceride [Mass/volume] i n Serum or PlasmaOrdered By: Vignesh Vogel on 09-03-2024 Triglyceride [Mass/Vol] 450 mg/dL High 0-149 [facility] Comment on above: If the triglyceride result [...] [Mass/volume] in Serum or Plasma High 0-149 [facility] Comment on above: If the triglyceride result [...] Urea nitrogen [Mass/Vol] 18 mg/dL Normal 06-13 [facility] Comment on above: Order Comment: Makayla lopez for Exam Routine lab draw Performed By: #### M G, CMP #### [place] [id number] [facility] Urea nitrogen [Mass/Vol] Urea nitrogen [Mass/volume] in Serum or Plasma 06-13 [facility] WBC Auto (Bld) [#/Vol]Ordere d By: Vignesh Vogel on 09-03-2024 WBC (Bld) [#/Vol] Leukocytes [#/volume ] in Blood by Automated count High 3.8-11.6 [facility] XR finger LT 4th digiton XR finger LT 4th digit [facility] [place] [address] [place], [place] [id number] XRay Report Signed Patient: Stephanie Zayas MR#: [id number] : 1990 Acct:[id number] Age/Sex: 33 / F ADM Date: 02/08/24 Loc: ER Room: Type: [facility] ER Attending Dr: Copies to: Isak Falk [...] Aston Griffin M.D.02/08/2024 12:49 PM Dictation Location: [place] [address] Transcribed By: [facility] 02/08/24 1249 Dictated By: Aston Griffin DO 02/08/24 1246 Signed By: 02/08/24 1249 Normal The [facility] CBC W MANUAL DIFFon 01-25-20 22 ATYPICAL LYMPH # Normal The [facility] Comment on above: Performed By: #### C MELISSA ####[facility] [address] [place] [address]Dr. Marge Harrell ATYPICAL LYMPH % Normal [facility] Comment on above: Performed By: #### C MELISSA ####[facility] [address] [place] [address]Dr. Marge Harrell BAND # Normal 0.0-0.3 [facility] Comment on above: Performed By: #### C MELISSA ####[facility] [address] [place] [address]Dr. Marge Harrell BAND % Normal 0-5 [facility] Comment on above: Performed By: #### C MELISSA ####[facility] [address] [place], [place] [address]Dr. Marge Harrell BASOM # 0.00 103/ul Normal 0.00-0.10 [facility] Comment on above: Performed By: #### C MELISSA ####[facility] [address] [place] [address]Dr. Marge Harrell BASOM % 0.0 % Critically low 0.2-2.0 [facility] Comment on above: Performed By: #### C MELISSA ####[facility] [address] [place] [address]Dr. Marge Harrell BLAST # Normal [facility] Comment on above: Performed By: #### C MELISSA ####[facility] [address] [place] [address]Dr. Marge Harrell BLAST % Normal [facility] Comment on above: Performed By: #### C MELISSA ####[facility] [address] [place], [place] [address]Dr. Marge Harrell CORRECTED WBC Normal 4.0-11.0 [facility] Comment on above: Performed By: #### C MELISSA ####[facility] [address] [place], [place] [address]DrJazmyn Harrell EOS # 0.20 103/ul Normal 0.00-0.70 [facility] Comment on above: Performed By: #### C MELISSA ####[facility] [address] [place] [id number] Harrell EOS% 1.0 % Normal 0.9-7.0 [facility] Comment on above: Performed By: #### C MELISSA ####[facility] [address] [place] [phone] Harrell HCT 42.4 % Normal 36.0-48.0 [facility] Comment on above: Performed By: #### C MELISSA ####[facility] [address] [place] [address]Dr. Marge Harrell HGB 14.3 g/dl Normal 12.0-16.0 [facility] Comment on above: Performed By: #### C MELISSA ####[facility] [address] [place] [address]Dr. Marge Harrell LYMPHM # 3.37 103/ul Normal 1.20-3.80 [facility] Comment on above: Performed By: #### C MELISSA ####[facility] [address] [place] [id number]. Marge Harrell LYMPHM% 17.0 % Critically low 20.5-60.0 [facility] Comment on above: Performed By: #### Genesis TORRES ####[facility] [address] [place] [phone]. Marge Harrell MCH 29.4 pg Normal 26.7-34.0 [facility] Comment on above: Performed By: #### C MELISSA ####[facility] [address] [place] [phone]. Marge Harrell MCHC 33.7 g/dl Normal 29.9-35.2 [facility] Comment on above: Performed By: #### C MELISSA ####[facility] [address] [place] [phone] Harrell MCV 87.1 fL Normal 81.0-99.0 The [facility] Comment on above: Performed By: #### C MELISSA ####[facility] [address]ns[address] [place] [phone]. Marge Harrell METAMYELOCYTE # Normal [facility] Comment on above: Performed By: #### C MELISSA ####[facility] [address] [place], [place] [address]Ei. Marge Harrell METAMYELOCYTE % Normal The [facility] Comment on above: Performed By: #### C MELISSA ####[facility] [address] [place] [phone]. Marge Harrell MONOM# 1.39 103/ul Critically high 0.30-0.80 [facility] Comment on above: Performed By: #### C MELISSA ####[facility] [address] [place] [phone]. Marge Harrell MONOM% 7.0 % Normal 1.7-12.0 [facility] Comment on above: Performed By: #### Genesis TORRES ####[facility] [address] [place], [place] [address]Dr. Marge Harrell MPV 8.6 fL Critically low 9.5-13.5 [facility] Comment on above: Performed By: #### Genesis TORRES ####[facility] [address] [place] [phone]. Marge Harrell MYELOCYTE # Normal The [facility] Comment on above: Performed By: #### Genesis TORRES ####[facility] Samj[address] [place] [address]Dr. Marge Harrell MYELOCYTE % Normal [facility] Comment on above: Performed By: #### Genesis TORRES ####[facility] [address]pr[address] [place] [phone]. Marge Harrell NRBC Normal [facility] Comment on above: Performed By: #### Genesis TORRES ####[facility] Febidbpdok[address]46 [place] [phone]. Marge Harrell PLT 418 103/ul Normal 150-450 [facility] Comment on above: Performed By: #### Genesis TORRES ####[facility] J[address]oj37[address] [place], [place] [address]Et. Marge Harrell RBC 4.87 106/ul Normal 4.20-5.40 [facility] Comment on above: Performed By: #### C MELISSA ####[facility] N[address]e8359 [place], [place] [address]Yi. Marge Harrell RDW 12.3 % Normal 11.0-15.0 [facility] Comment on above: Performed By: #### C MELISSA ####[facility] Ock[address]h4086 [place], [place] [address]Gz. Marge Harrell SEG # 14.85 103/ul Critically high 1.40-6.50 [facility] Comment on above: Performed By: #### C MELISSA ####[facility] Z[address] [place] [phone]. Marge Harrell SEG % 75.0 % Normal 43.0-75.0 [facility] Comment on above: Performed By: #### C MELISSA ####[facility] [address]we[address]6437 [place], [place] [address]Oj. Marge Harrell TOXIC GRANULATION SLIGHT Normal The [facility] Comment on above: Performed By: #### C MELISSA ####[facility] [address]ls19[address] [place] [phone]. Marge Harrell WBC 19.8 103/ul Critically high 4.0-11.0 [facility] Comment on above: Performed By: #### C MELISSA ####[facility] [address] [place] [address] Mar[address] CT ABD/PELVIS WO CONon 01-24 [...] GRAEME BAUMAN Date: 2022-01-24 15:11 Normal The [facility] ER URINE PROFILEon 2 Bilirubin Ql (U) SMALL Abnormal NEGATIVE [facility] Comment on above: Performed By: #### DAMEON CM, ERUR #### [facility] [address] [place] [address] Dr. Marge Harrell Clarity (U) SL CLOUDY Abnormal CLEAR [facility] Comment on above: Performed By: #### DAMEON CM, ERUR #### [facility] [address] [place] [address] Dr. Marge Harrell Color (U) DK. YELLOW Normal YELLOW [facility] Comment on above: Performed By: #### DAMEON CM, ERUR #### [facility] [address] [place] [address] [address] Marge Harrell ERUAHD A micrscopic examina tion will be performed if indicated. Normal The [facility] Comment on above: Performed By: #### DAMEON CM, ERUR #### [facility] [address] [place] [address] [address] Marge Harrell Glucose Ql (U) Negative Normal NEGATIVE [facility] Comment on above: Performed By: #### DAMEON CM, ERUR #### [facility] [address] [place] [address] [address] Marge Harrell Hemoglobin Ql (U) LARGE Abnormal NEGATIVE [facility] Comment on above: Performed By: #### DAMEON CM, ERUR #### [facility] [address] [place] [address] [address] Marge Harrell Ketones Ql (U) Negative Normal NEGATIVE [facility] Comment on above: Performed By: #### DAMEON CM, ERUR #### [facility] [address] [place] [address] Dr. Marge Harrell LEUKOCYTES Negative Normal NEGATIVE [facility] Comment on above: Performed By: #### DAMEON CM, ERUR #### [facility] [address] [place] [address] Dr. Marge Harrell Nitrite Ql (U) Negative Normal NEGATIVE The [facility] Comment on above: Performed By: #### DAMEON CM, ERUR #### [facility] [address] [place] [address] [address] Marge Harrell pH (U) 5.5 [pH] Normal 5-9 The [facility] Comment on above: Performed By: #### DAMEON CM, ERUR #### [facility] [address] [place] [address] Dr. Marge Harrell Protein (U) [Mass/Vol] 100 mg/dL Abnormal NEGAT CHRISSIE/ TRACE The [facility] Comment on above: Performed By: #### DAMEON CM, ERUR #### [facility] [address] [place] [address] Dr. Marge Harrell SPEC GRAVITY >=1.030 Abnormal 1.005-<=1.0 25 [facility] Comment on above: Performed By: #### DAMEON CM, ERUR #### [facility] [address] [place] [address] Dr. Marge Harrell UR MICRO IND INDICATED Normal [facility] Comment on above: Performed By: #### DAMEON CM, ERUR #### [facility] [address] [place] [address] Dr. Marge Harrell Urobilinogen Qn (U) 0.2 {Zev'U}/dL Normal 0.2 - 1. 0 The [facility] Comment on above: Performed By: #### P DAMEON WARD, CORKYR #### [facility] [address] [place] [address] Dr. Marge Harrell LACTATE/LACTIC ACIDon 2021 Lactate [Moles/Vol] 1.9 mmol/L Normal 0.7-2.0 The [facility] Comment on above: Performed By: #### L ACT #### [facility] [address] [place] [address] Dr. Marge Harrell Lactate [Moles/Vol] 2.4 mmol/L Critically high 0.7-2.0 [facility] Comment on above: Performed By: #### L ACT #### [facility] [address] [place] [address] Dr. Marge Harrell LIPASEon 01-24-2022 Lipase [Catalytic activity/Vol] 35.0 U/L Normal 23.0-300.0 [facility] Comment on above: Performed By: #### C TEDDY LIPA #### [facility] [address] [place] [address] Dr. Marge Harrell URon 01-24-2022 , QUAL Negative Normal NEGATIVE The [facility] Comment on above: Performed By: #### P DAMEON WARD, CORKYR #### [facility] [address] [place] [address] Dr. Marge Harrell PROF 14(COMP METB)on 022 Albumin [Mass/Vol] 4.0 g/dL Normal 3.5-5.0 [facility] Comment on above: Performed By: #### C MP, LIPA #### [facility] [address] [place] [address] Dr. Marge Harrell Albumin/Globulin [Mass ratio] 0.9 {ratio} Normal The [facility] Comment on above: Performed By: #### C MP, LIPA #### [facility] [address] [place] [address] [address] Marge Harrell ALP [Catalytic activity/Vol] 116 U/L Normal 38-126 [facility] Comment on above: Performed By: #### C MP, LIPA #### [facility] [address] [place] [address] [address] Marge Harrell ALT [Catalytic activity/Vol] 84 U/L Critically high 9-52 [facility] Comment on above: Performed By: #### C MP, LIPA #### [facility] [address] [place] [address] Dr. Marge Harrell Anion gap [Moles/Vol] 14.3 mmol/L Normal Th e [facility] Comment on above: Performed By: #### C MP, LIPA #### [facility] [address] [place] [address] Dr. Marge Harrell AST [Catalytic activity/Vol] 28 U/L Normal 14-36 [facility] Comment on above: Performed By: #### C MP, LIPA #### [facility] [address] [place] [address] Dr. Marge Harrell Bilirubin [Mass/Vol] 0.4 mg/dL Normal 0.2-1.3 The [facility] Comment on above: Performed By: #### C MP, LIPA #### [facility] [address] [place] [address] Dr. Marge Harrell Calcium [Mass/Vol] 8.8 mg/dL Normal 8.4-10.2 The [facility] Comment on above: Performed By: #### C MP, LIPA #### [facility] [address] [place] [address] Dr. Marge Harrell Chloride [Moles/Vol] 101 mmol/L Normal 98-107 The [facility] Comment on above: Performed By: #### C MP, LIPA #### [facility] [address] [place] [address] Dr. Marge Harrell CO2 [Moles/Vol] 22.5 mmol/L Normal 22.0-30.0 The [facility] Comment on above: Performed By: #### C MP, LIPA #### [facility] [address] [place] [address] [address] Marge Harrell Creatinine [Mass/Vol] 0.70 mg/dL Normal 0.52-1.04 [facility] Comment on above: Performed By: #### C MP, LIPA #### [facility] [address] [place] [address] [address] Marge Harrell EGFR-AF SYRIAN >60 Normal >=60 [facility] Comment on above: Performed By: #### C MP, LIPA #### [facility] [address] [place] [address] [address] Marge Harrell EGFR-NON AF SYRIAN >60 Normal >=60 [facility] Comment on above: Performed By: #### C MP, LIPA #### [facility] [address] [address] [address] Marge Harrell Globulin (S) [Mass/Vol] 4.5 g/dL Normal [facility] Comment on above: Performed By: #### C MP, LIPA #### [facility] [address] [address] [address] Marge Harrell Glucose [Mass/Vol] 148 mg/dL Critically high 74-106 [facility] Comment on above: Performed By: #### C MP, LIPA #### [facility] [address] [address] [address] Marge Harrell Potassium [Moles/Vol] 3.8 mmol/L Normal 3.4-5.0 [facility] Comment on above: Performed By: #### C MP, LIPA #### [facility] [address] [address] [address] Marge Harrell Protein [Mass/Vol] 8.5 g/dL Critically high 6.1-8.2 [facility] Comment on above: Performed By: #### C MP, LIPA #### [facility] [address] [address] [address] Marge Harrell Sodium [Moles/Vol] 134 mmol/L Critically low 137-145 [facility] Comment on above: Performed By: #### C MP, LIPA #### [facility] [address] [address] [address] Marge Harrell Urea nitrogen [Mass/Vol] 19.0 mg/dL Critically high 7.0-17.0 [facility] Comment on above: Performed By: #### C MP, LIPA #### [facility] [address] [address] [address] Marge Harrell Urea nitrogen/Creatinine [Mass ratio] 27.1 mg/mg Normal [facility] Comment on above: Performed By: #### C MP, LIPA #### [facility] [address] [address] [address] Marge Harrell URINE MICROSCOPIC ONLYon BACTERIA NONE SEEN Normal NONE SEEN [facility] Comment on above: Performed By: #### P REGNAZ BotelloICRO, ERUR #### [facility] [address] [place] [address] Dr. Marge Harrell Bacteria identified Cx Nom (U) NOT INDICATED Normal [facility] Comment on above: Performed By: #### P REGU UMICRO, ERUR #### [facility] [address] [place] [address] Dr. Marge Harrell CA OX CRYSTALS MODERATE Normal [facility] Comment on above: Performed By: #### P REGU UMICRO, ERUR #### [facility] [address] [place] [address] Dr. Marge Harrell CAST NONE SEEN Normal NONE SEEN The [facility] Comment on above: Performed By: #### P REGU UMICRO, ERUR #### [facility] [address] [place] [address] Dr. Marge Harrell Crystals LM Nom (Urine sed) SEEN Abnormal NONE SEEN The [facility] Comment on above: Performed By: #### P REGU, UMICRO, ERUR #### [facility] [address] [place] [address] Dr. Marge Harrell Epithelial cells LM Ql (Urine sed) MODERATE Abnormal NONE SEEN /RARE The [facility] Comment on above: Performed By: #### P REGU, UMICRO, ERUR #### [facility] [address] [address] [address] Marge Harrell MUCOUS TRACE Abnormal NONE SEEN The [facility] Comment on above: Performed By: #### P DAMEON WARD, ERUR #### [facility] [address] [address] [address] Marge Harrell RBC 20-50 Abnormal 0-2 [facility] Comment on above: Performed By: #### P DAMEON WARD, ERUR #### [facility] [address] [address] [address] Marge Harrell WBC NONE SEEN Normal NONE SEEN The [facility] Comment on above: Performed By: #### P DAMEON WARD ERUR #### [facility] [address] [address] [address] Marge Harrell URon 01-22-2022 , QUAL Negative Normal NEGATIVE The [facility] Comment on above: Performed By: #### P EMMIEU #### [facility] [address] [address] [address] Marge Harrell XR ANKLE LT MIN [...] HOMER RODRIGUEZ Date: 2022-01-22 20:19 Normal [facility] Vital Signs Date Time Vital Sign Value Performing Clinician Facility 01-14-2025 21:50-0500 Diastolic blood pressure 77 mm[Hg] Brody Yun [facility] 01-14-2025 21:50-0500 Heart rate 95 /min Brody Yun [facility] 01-14-2025 21:50-0500 Respiratory rate 20 /min Brody Yun [facility] 01-14-2025 21:50-0500 SaO2% (BldA) [Mass fraction] 95 % Brody Yun [facility] 01-14-2025 21:50-0500 Systolic blood pressure 123 mm[Hg] Brody Yun [facility] 01-14-2025 19:12-0500 Body temperature 98.06 [degF] Brody Yun [facility] 01-14-2025 19:12-0500 Diastolic blood pressure 100 mm[Hg] Brody Yun [facility] 01-14-2025 19:12-0500 Heart rate 88 /min Brody Fitzpatricke [facility] 01-14-2025 19:12-0500 Respiratory rate 20 /min Brody Yun [facility] 01-14-2025 19:12-0500 SaO2% (BldA) [Mass fraction] 98 % Brody Yun [facility] 01-14-2025 19:12-0500 Systolic blood pressure 156 mm[Hg] Brody Yun [facility] 10-03-2024 16:29-0500 Body temperature 97.8 [degF] Services [email or web address] Work Phone: [facility] 10-03-2024 16:29-0500 Diastolic blood pressure 88 mm[Hg] Services [email or web address] Work Phone: [facility] 10-03-2024 16:29-0500 Heart rate 96 /min [facility] [email or web address] Work Phone: [facility] 10-03-2024 16:29-0500 Respiratory rate 18 /min [facility] [email or web address] Work Phone: [facility] 10-03-2024 16:29-0500 SaO2% (BldA) [Mass fraction] 97 % Services [email or web address] Work Phone: [facility] 10-03-2024 16:29-0500 Systolic blood pressure 158 mm[Hg] [facility] Work Phone: [facility] 10-03-2024 11:01-0500 Inhaled oxygen flow rate 3 L/min [facility] Work Phone: [facility] 10-03-2024 04:23-0500 Body weight 81.5 kg [facility] Work Phone: [facility] 10-01-2024 16:41-0500 Inhaled oxygen flow rate 2 L/min [facility] Work Phone: [facility] 10-01-2024 16:40-0500 Body height 172.72 cm [facility] Work Phone: [facility] 10-01-2024 16:40-0500 Body temperature 97.4 [degF] [facility] Work Phone: [facility] 10-01-2024 16:40-0500 Body weight 110.5 kg [facility] Work Phone: [facility] 10-01-2024 16:40-0500 Diastolic blood pressure 108 mm[Hg] [facility] Work Phone: [facility] 10-01-2024 16:40-0500 Heart rate 88 /min [facility] Work Phone: [facility] 10-01-2024 16:40-0500 Respiratory rate 22 /min [facility] Work Phone: [facility] 10-01-2024 16:40-0500 SaO2% (BldA) [Mass fraction] 92 % [facility] Work Phone: [facility] 10-01-2024 16:40-0500 Systolic blood pressure 152 mm[Hg] [facility] Work Phone: [facility] 02-08-2024 11:54-0400 Body height 172.72 cm [facility] Work Phone: [facility] 02-08-2024 11:54-0400 Body temperature 97.7 [degF] Services [facility] Work Phone: [facility] 02-08-2024 11:54-0400 Body weight 116.8 kg Services [facility] Work Phone: [facility] 02-08-2024 11:54-0400 Diastolic blood pressure 95 mm[Hg] Services [facility] Work Phone: [facility] 02-08-2024 11:54-0400 Heart rate 96 /min Services [facility] Work Phone: [facility] 02-08-2024 11:54-0400 Respiratory rate 20 /min Services [facility] Work Phone: [facility] 02-08-2024 11:54-0400 SaO2% (BldA) [Mass fraction] 98 % Services [facility] Work Phone: [facility] 02-08-2024 11:54-0400 Systolic blood pressure 167 mm[Hg] Services [facility] Work Phone: [facility] Encounters Encounter Date Encounter Type Care Provider Facility Start: 01-14-2025 End: 01-14-2025 Emergency department patient visit Brody Yun [facility] Start: 10-01-2024 End: 10-03-2024 Evaluation and management of inpatient [facility] Work Phone: [facility] Work Phone: Start: 09-03-2024 End: 09-03-2024 Patient encounter procedure [facility] Work Phone: [facility] [place] Work Phone: Start: 09-03-2024 End: 09-03-2024 ambulatory [facility] Work Phone: [facility] Work Phone: Start: 09-03-2024 Encounter for other specified special examinations Gagandeep Bernard [facility] Start: 02-08-2024 End: 02-08-2024 Emergency department patient visit Services [facility] Work Phone: [facility] Work Phone: Start: 01-24-2022 End: 01-24-[address] DOCTOR BETTENCOURT Facility:[facility]1 Start: 01-22-2022 End: 01-22-[address] ZOYA LAW Facility:[facility]1 Procedures Date Procedure Procedure Detail Performing Clinician Start: 10-01-2024 Viral nucleic acid assay Services [facility] [employer] Phone: Start: 10-01-2024 CT angiography of thorax Services [facility] Work Phone: Start: 10-01-2024 Plain chest X-ray Servi lisa [facility] Work Phone: Start: 02-08-2024 X-ray of ring finger Se rvices [facility] Work Phone: Plan of Treatment Date Care Activity Detail Author Start: 10-03-2024 [facility] Start: 10-01-2024 [facility] Start: 10-01-2024 Microbial culture of sputum [facility] Start: 10-01-2024 Hospital admission [facility] Start: 10-01-2024 Bacteria identified in Blood by Culture Blood Culture [facility] Start: 10-01-2024 [facility] Patient Education [facility] Work Phone: Patient referral [facility] Work Phone: Payers Date Payer Category Payer Medicaid [id number] 93 [id number] 2024 Self-pay [id number] 1990 Unknown [id number] 2.16.84 [id number] 1990 Unknown [id number] 2.16.84 [id number] 1990 Unknown [id number] 2.16.8 [id number] 1990 Unknown [id number] 2.16.8 [id number] 1957 Self-pay [id number] Unknown [id number] 2.16.8 [id number] Unknown [id number] 2.16.8 [id number] Unknown [id number] 2.16.8 [id number] Social History Date Type Detail Facility Start: 02-08-2024 End: 01-14-2025 Tobacco smoking status RUST Ex-smoker (finding) [facility] Start: 1990 Sex Assigned At Female [facility] Start: 10-01-2024 End: 10-01-2024 Tobacco smoking status SDIS Smoker (finding) [facility] Start: 10-01-2024 End: 10-03-2024 Sex Female (finding) [facility] Sex Assigned At Female [facility] NEGATED: Highlighted row [facility] Medical Equipment Procedure Code Equipment Code Equipment Origin al Text Equipment Identifier Dates Blood Sugar Diagnostic strip Start: 10-03-2024 Lancets misc Start: 10-03-2024 Pen Needle, Diab etic (Bd Ultra-Fine Mini Pen Needle) 31 gauge x 3/16 needle Start: 10-03-2024 Goals Date Patient Goal Desired Activity /State Functional Status Date Assessment Result Facility 01-14-2025 Functional Status N/A [facility] 10-03-2024 Functional status Patient at Baseline [facility] Work Phone: 10-01-2024 Functional status Patient at Baseline [facility] Work Phone: Mental Status Date Assessment Result Facility 10-03-2024 Cognitive function Cognitive Sta tus Patient at Baseline [facility] Work Phone: 10-01-2024 Cognitive function Cognitive Sta tus Patient at Baseline [facility] Work Phone: Clinical Notes 10-01-2024 to 01-14-2025 Note Date & Type Note Facility 01-14-2025 Hospital Discharg e instructions Follow Up Care 01/14/2025 19:06:08 With:[facility] Address: [address] [place] [address] [id number] Business (1) When:01/17/2025 21:53:23 With:XXXX NONE Address: [place] When:Within 3 Day(s) [facility] 01-14-2025 Evaluation + Plan note Extrac david from: Title:ED Note Author:Brody Yun DO Date:12/22 04/13 Gastroenteritis (K52.9: Alee nfective gastroenteritis and colitis, unspecified) Orders: ondansetron, 12 mg = 3 tab(s), Tab-Dis, Oral, Once, Stop date 01/14/25 21:54:00 EST, STAT, Start date 01/14/25 21:54:00 EST, 01/14/25 21:54:00 EST ondansetron, 4 mg = 1 tab(s), Oral, q6hr, X 3 day(s), # 10 tab(s), Refills(s) 0, Pharmacy: [facility]/pharmacy #[id number], 165, cm, 01/14/25 19:16:00 EST, Height/Length Dosing, 105.5, kg, 01/14/25 19:16:00 EST, Weight Dosing ondansetron, 4 mg = 1 tab(s), Tab-Dis, Oral, Once, Stop date 01/14/25 20:00:00 EST, STAT, Start date 01/14/25 20:00:00 EST, 01/14/25 20:00:00 EST Beta hCG Qual CBC w/ Auto Diff Comprehensive Metabolic Panel eGFR Extra Blue Tube Lipase Level [facility] [id number] Progress note Author Brayan Calderón [facility] Note Date/Time October 02, 2024 1:10pm [facility] [address] [place] [address] Hospitalist Progress Note Signed Patient: Stephanie Zayas MR#: [id number] : 1990 Acct:[id number] Age/Sex: 34 / F Adm Date: 4 Loc: 3T Room: [address] [place] [address] Type: ADM IN Attending Dr: Brayan Calderón [...] above Documented By: Brayan Calderón MD 10/02/24 1302 Signed By: <Electronically signed by Brayan Calderón MD> 10/02/24 4503 [facility] Work Phone: 1(513) 520-588111-13-2024 History and physical note Author Brayan Calderón [facility] Note Date/Time October 02, 2024 1:09pm [facility] [address] [place] [address] Hospitalist H&P Signed Patient: Stephanie Zayas MR#: [id number] : 1990 Acct:[id number] Age/Sex: 34 / F Adm Date: 4 Loc: Room: [address] [place] [address] Type: ADM IN Attending Dr: Brayan Calderón MD Copies to: Brayan Calderón MD [facility] Milady Jay MD, RES~ HPI DATE OF EXAMINATION: 10/01/24 CHIEF COMPLAINT: shortness of breath HISTORY OF PRESENT ILLNESS: Attending note: I saw the patient personally on the day of encounter. I reviewed the relevant history, and performed the ambrocio elements of the physical examination. I reviewedthe relevant laboratory workup, radiological studies and the current treatment plan. I formulated the plan of care and confirmed it with the resident/student/SET UP MECHANIC AUTOMATIC LINE. Ms. Stephanie Zayas is a?34F with a [...] negative unless noted below or in HPI [facility] Medical History (Updated 10/01/24 @ 14:07 by [...] mg/0.215 mg/0.25 mg-ethinyl estradiol 25 mcg tablet (Gfv-Lh-Qncavumoc) 1 tab PO DAILY 10/01/24 [History Confirmed [...] % (Auto) 13.6 % (.) 10/01/24 12:10 [place] % (Auto) 7.2 % (.) 10/01/24 12:10 Eos % (Auto) 5.8 % (.) 10/01/24 12:10 Baso % (Auto) 0.8 % (.) 10/01/24 12:10 Nucleat RBC Rel Count 0.1 /100 WBC (0-0.5) 10/01/24 12:10 Neut # (Auto) 13.1 x10E3/uL (1.8-7.7) H 10/01/24 12:10 Lymph # (Auto) 2.5 x10E3/uL (1.00-4.8) 10/01/24 12:10 Kenton # (Auto) 1.3 x10E3/uL (0.0-0.8) H 10/01/24 [...] pH 6.0 (5.0-9.0) 10/01/24 14:16 Ur Specific [place] 1.028 (1.001-1.030) 10/01/24 14:16 Urine Protein 30 [...] 2 Documented By: Brayan Calderón MD 10/01/24 7451 Signed By: <Electronically signed by Brayan Calderón MD> 10/02/24 1309 <Electronically signed by MD BART Jay> 10/01/24 1907 [facility] Work Phone: 1(871) 204-622511-13-[address] [address] Hospitalist Progress Note Signed Patient: Stephanie Zayas MR#: [id number] : 1990 Acct:[id number] Age/Sex: 34 / F Adm Date: 4 Loc: Room: [address] [place] [address] Type: ADM IN Attending Dr: Brayan Calderón [...] Brayan Calderón MD 10/02/24 1309 Signed By: 10/02/24 1310 [facility]11-13-2024 [place] [address] Hospitalist H&P Signed Patient: Stephanie Zayas MR#: [id number] : 1990 Acct:[id number] Age/Sex: 34 / F Adm Date: 4 Loc: Room: [address] [place] [address] Type: ADM IN Attending Dr: Brayan Calderón MD Copies to: Brayan Calderón MD [facility] Milady Jay MD, RES~ HPI DATE OF EXAMINATION: 10/01/24 CHIEF COMPLAINT: shortness of breath HISTORY OF PRESENT ILLNESS: Attending note: I saw the patient personally on the day of encounter. I reviewed the relevant history, and performed the ambrocio elements of the physical examination. I reviewedthe relevant laboratory workup, radiological studies and the current treatment plan. I formulated the plan of care and confirmed it with the re sident/student/SET UP MECHANIC AUTOMATIC LINE. Ms. Stephanie Zayas is a?34F with a [...] negative unless noted below or in HPI [facility] Medical History (Updated 10/01/24 @ 14:07 by [...] puff inhalation Q4H PRN shortness of breath orwheezing 10/01/24 [History Confirmed 10/01/24] dulaglutide 0.75 mg/0.5 mL subcutaneous pen injector (Trulicity) 0.75 mg subcut TU@0900 10/01/24 [History Confirmed 10/01/24] escitalopram oxalate 20 mg tablet 20 mg PO DAILY 10/01/24 [History Confirmed 10/01/24] hydroxyzine pamoate 25 mg capsule 25 mg PO TID PRN anxiety 10/01/24 [History Confirmed 10/01/24] norgestimate 0.18 mg/0.215 mg/0.25 mg-ethinyl estradiol 25 mcg tablet (Fwh-Kn-Cxeyeyrmf) 1 tab PO DAILY 10/01/24 [History Confirmed [...] % (Auto) 13.6 % (.) 10/01/24 12:10 [place]on % (Auto) 7.2 % (.) 10/01/24 12:10 Eos % (Auto) 5.8 % (.) 10/01/24 12:10 Baso % (Auto) 0.8 % (.) 10/01/24 12:10 Nucleat RBC Rel Count 0.1 /100 WBC (0-0.5) 10/01/24 12:10 Neut # (Auto) 13.1 x10E3/uL (1.8-7.7) H 10/01/24 12:10 Lymph # (Auto) 2.5 x10E3/uL (1.00-4.8) 10/01/24 12:10 [place]on # (Auto) 1.3 x10E3/uL (0.0-0.8) H 10/01/24 [...] pH 6.0 (5.0-9.0) 10/01/24 14:16 Ur Specific [place] 1.028 (1.001-1.030) 10/01/24 14:16 Urine Protein 30 [...] setting as: INPATIENT because of an expectation ofan over 2 midnight stay. Estimated length of stay (# of days): 2 Documented By: Brayan Calderón MD 10/01/24 1821 Signed By: 10/02/24 8603 10/01/24 1902 [facility]11-12-2024 Evaluation note* Diagnosis Onset Date Resolution Status Admit Date Acute bronchitis acute October 01, 2024 2:29pm Acute hypoxemic respiratory failure acute October 01 2:29pm [facility] Work Phone: 1(752) 109-243511-12-2024 [facility]iology [facility] [place] [address] CT Scan Report Signed Patient: Stephanie Zayas MR#: [id number] : 1990 Acct:[id number] Age/Sex: 34 / F ADM Date: 4 Loc: ER Room: Type: [facility] ER Attending Dr: Copies to: Alec Antoine DO~ Ordering Provider: Alec Antoine DO Date of Service: 10/01/24 CT/CT angio chest PE protocol: dyspnea CT PULMONARY ANGIOGRAM WITH CONTRAST CLINICAL HISTORY: Cough and shortness of breath COMPARISON: None TECHNIQUE: Spiral images were obtained through the chest following intravenous administration of 90mL of Isovue 370. Images were reviewed using [...] Kati Mckeon M.D.10/01/2024 1:55 PM Dictation Location: [place] [address] Transcribed By: [facility] 10/01/24 1355 Dictated By: Kati Mckeon MD 10/01/24 1347 Signed By: 10/01/24 7857 [facility] Work Phone: Evaluation noteNo assessment information available [facility] Work Phone: History and physical note Author Brayan Calderón [facility] Note Date/Time October 02, 2024 1:09pm [facility] [address] [place] [address] Hospitalist H&P Signed Patient: Stephanie Zayas MR#: [id number] : 1990 Acct:[id number] Age/Sex: 34 / F Adm Date: 4 Loc: Room: [address] [place] [address] Type: ADM IN Attending Dr: Brayan Calderón MD Copies to: Brayan Calderón MD [facility] Milady Jay MD, RES~ HPI DATE OF EXAMINATION: 10/01/24 CHIEF COMPLAINT: shortness of breath HISTORY OF PRESENT ILLNESS: Attending note: I saw the patient personally on the day of encounter. I reviewed the relevant history, and performed the ambrocio elements of the physical examination. I reviewedthe relevant laboratory workup, radiological studies and the current treatment plan. I formulated the plan of care and confirmed it with the resident/student/SET UP MECHANIC AUTOMATIC LINE. Ms. Stephanie Zayas is a?34F with a [...] negative unless noted below or in HPI [facility] Medical History (Updated 10/01/24 @ 14:07 by [...] mg/0.215 mg/0.25 mg-ethinyl estradiol 25 mcg tablet (Jsw-Xt-Xpwaxkxnj) 1 tab PO DAILY 10/01/24 [History Confirmed [...] % (Auto) 13.6 % (.) 10/01/24 12:10 [place] % (Auto) 7.2 % (.) 10/01/24 12:10 Eos % (Auto) 5.8 % (.) 10/01/24 12:10 Baso % (Auto) 0.8 % (.) 10/01/24 12:10 Nucleat RBC Rel Count 0.1 /100 WBC (0-0.5) 10/01/24 12:10 Neut # (Auto) 13.1 x10E3/uL (1.8-7.7) H 10/01/24 12:10 Lymph # (Auto) 2.5 x10E3/uL (1.00-4.8) 10/01/24 12:10 [place] # (Auto) 1.3 x10E3/uL (0.0-0.8) H 10/01/24 [...] pH 6.0 (5.0-9.0) 10/01/24 14:16 Ur Specific [place] 1.028 (1.001-1.030) 10/01/24 14:16 Urine Protein 30 [...] signed by MD BART Jay> 10/01/24 1905 [facility] Work Phone: Hospital course Narrative No data available for this section [facility] Hospital Discharge instructions Additional Instructions Monitor glucose levels before meals and at bedtime while on steroids. Keep a record of these and take it with you to your follow-up appointment.[facility] Work Phone: Progress note Author Brayan Calderón [facility] Note Date/Time October 02, 2024 1:10pm [facility] EN[facility] [address] [place] [address] Hospitalist Progress Note Signed Patient: Stephanie Zayas MR#: [id number] : 1990 Acct:[id number] Age/Sex: 34 / F Adm Date: 4 Loc: Room: [address] [place] [address] Type: ADM IN Attending Dr: Brayan Calderón [...] signed by Brayan Calderón MD> 10/02/24 1310 [facility] Work Phone: Progress note No data available for this section [facility] Summary Purpose Family History No Family History Records FoundNo Family History Records Found No data available for this section No Family History Records FoundNo Family History [...] 01, 2024 2:29pm Acute hypoxemic respiratory failure Shea townsend 2023 2:29pm Additional Source Comments INFORMATION SOURCE (unrecogn ized section and content) DATE CREATED AUTHOR 01/27/2022 [facility] DATE CREATED AUTHOR AUTHOR'S ORGANIZ ATION 10/08/2024 [facility] DATE CREATED AUTHOR AUTHOR'S ZOHAIB ATION 01/16/2025 Agustin Reis [facility] Care Teams (unrecognized sec tion and content) Team Status: Active Member Role Status Dates Services [facility] Primary Care Provider Active Team Status: Inactive Member Role Status Dates Services [facility] Primary Care Provider Active Start: February 08, 2024 End: February 08, 2024 Isak Falk APRN Emergency Provider Active Start: February 08, 2024 End: February 08, 2024 Team Status: Inactive Member Role Status Dates Services [facility] Primary Care Provider Active Start: September 03, 2024 End: September 03, 2024 Gagandeep Bernard DO Attending Provider Active Start : September 03, 2024 End: September 03, 2024 Vignesh Vogel DO RES Other Provider Active Sta rt: September 03, 2024 End: September 03, 2024 Team Status: Active Member Role Status Dates Services [facility] Primary Care Provider Active Start: October 01, 2024 Alec Antoine DO Emergency Provider Active Start: October 01, 2024 Brayan Calderón MD Admit Provider, Atte nding Provider Active Start: October 01, 2024 Team Status: Inactive Member Role Status Dates [facility] Primary Care Provider Active Start: October 01, 2024 End: October 03, 2024 Alec Antoine DO Emergency Provider Active Start: October 01, 2024 End: October 03, 2024 Brayan Calderón MD Admit Provider, Atte nding Provider Active Start: October 01, 2024 End: October 03, 2024 Goals (unrecognized section and content) Goals may be documented in a n alternate sectionGoals may be documented in an alternate section No data available for this section FOR RECORDS PERTAINING TO PATIENTS WHO [...] BE BASED ON THE PRIMARY CLINICAL RECORDS. [facility] [employer] provides no warranty or guarantee of the accuracy or completeness of information in this document.
--- NOTE | 2025-03-28 17:00 | ED.GENADUL1 ---
HPI HPI - General Adult General Chief complaint: Back Pain/Injury Stated complaint: BACK PAIN, STOMACH PAIN Time Seen by Provider: 03/28/25 16:49 Source: patient Mode of arrival: walk-in Limitations: no limitations History of Present Illness HPI narrative: Patient is a 34-year-old female presents to the emergency department for evaluation of right flank pain that began 1 day ago. She states she has a history of kidney stones and this feels similar. She states she last passed a kidney stone about 1 year ago. She has had no fevers, chills, vomiting. She states she takes nausea medication at home regularly as she has a history of GI issues. She denies any hematuria. She is unsure of a possibility of . She denies any abdominal surgeries. She states the pain in her low back was radiating across her low back yesterday and is now radiating to the upper abdomen bilaterally. No medications taken prior to arrival for pain. Related Data Previous Rx's ?Medication ?Instructions ?Recorded ondansetron 4 mg disintegrating 4 mg PO Q8H PRN nausea and 03/17/25 tablet vomiting 3 days #10 tabs cephalexin 500 mg capsule 500 mg PO Q8H 7 days #21 caps 03/28/25 ketorolac 10 mg tablet 10 mg PO TID PRN pain #10 tabs 03/28/25 ondansetron 4 mg disintegrating 4 mg PO Q6H PRN nausea and 03/28/25 tablet vomiting #12 tabs Allergies Allergy/AdvReac Type Severity Reaction Status Date / Time No Known Drug Allergies Allergy Verified 03/17/25 15:48 Opioid HPI Opioid Management Most Recent Opioid Data: Last Pain Scale 9 Today, 16:37 Review of Systems ROS Constitutional Denies: fever or chills Ears, nose, mouth, and throat Denies: throat pain or nasal congestion Cardiovascular Denies: chest pain Respiratory Denies: shortness of breath or cough Gastrointestinal Reports: abdominal pain; Denies: nausea, vomiting or diarrhea Genitourinary Denies: painful urination Musculoskeletal Reports: back pain; Denies: neck pain or extremity pain Integumentary/Breast Denies: rash Neurological Denies: numbness in extremities or weakness in extremities Hematologic/Lymphatic Denies: easy bruising or easy bleeding PFSH PFSH Social History Smoking status: Never smoker Little interest or pleasure in doing things: not at all Feeling down, depressed, or hopeless: not at all Exam Narrative Exam Narrative: Gen.: Awake, alert, in no distress Head: Normocephalic, atraumatic ENT: Moist mucous membranes Respiratory: No respiratory distress, lungs clear bilaterally Cardio: Regular rate and rhythm ABD: Soft, obese, mild tenderness across the bilateral upper quadrants of the abdomen with no guarding or rebound Back: No bony tenderness of the T-spine or L-spine with diffuse tenderness of the bilateral flanks and bilateral upper quadrants of the abdomen with no guarding or rebound Extremities: Moves extremities equally, no injuries noted Psych: Normal mood and affect Neuro: No focal neuro deficit Skin: Warm, dry, intact Constitutional Vital Signs, click to edit/add: Last Vital Signs Temp 98.6 F 03/28/25 16:37 Pulse 94 H 03/28/25 16:37 Resp 18 03/28/25 16:37 BP 162/99 H 03/28/25 16:37 Pulse Ox 97 03/28/25 16:37 O2 Del Method Room Air 03/28/25 16:37 Course Vital Signs Vital signs: Vital Signs Temperature 98.6 F 03/28/25 16:37 Pulse Rate 94 H 03/28/25 16:37 Respiratory Rate 18 03/28/25 16:37 Blood Pressure 162/99 H 03/28/25 16:37 Pulse Oximetry 97 03/28/25 16:37 Oxygen Delivery Method Room Air 03/28/25 16:37 Temperature 98.6 F 03/28/25 16:37 Pulse Rate 94 H 03/28/25 16:37 Respiratory Rate 18 03/28/25 16:37 Blood Pressure 162/99 H 03/28/25 16:37 Pulse Oximetry 97 03/28/25 16:37 Oxygen Delivery Method Room Air 03/28/25 16:37 Medical Decision Making MDM Narrative Medical decision making narrative: Laboratory studies reviewed and noted showing the patient has a mild UTI, no other acute process noted. CT of the abdomen and pelvis without contrast shows the patient has nephrolithiasis but no evidence of ureteral lithiasis or obstruction. She will be treated for UTI with Keflex, Zofran, Toradol for home. Follow-up with PCP and return to the ER if symptoms change or worsen SUPERVISED APC VISIT, PHYSICIAN ATTESTATION: Based on the medical record the care appears appropriate. ? Medical Records Medical records reviewed: Yes I reviewed the patient's medical records Lab Data Lab results reviewed: Yes I reviewed the patient's lab results Labs: Lab Results 03/28/25 03/28/25 Range/Units 17:30 17:35 WBC 12.7 H (4.0-11.0) 10^3/uL RBC 4.28 (4.20-5.40) 10^6/uL Hgb 12.6 (12.0-16.0) g/dL Hct 37.5 (36.0-48.0) % MCV 87.6 (81.0-99.0) fL MCH 29.4 (26.7-34.0) pg MCHC 33.6 (29.9-35.2) g/dL RDW 13.4 (11.0-15.0) % Plt Count 358 (150-450) 10^3/uL MPV 8.4 L (9.5-13.5) fL Neut % (Auto) 68.3 (43.0-75.0) % Lymph % (Auto) 23.3 (20.5-60.0) % [place] % (Auto) 6.7 (1.7-12.0) % Eos % (Auto) 0.6 L (0.9-7.0) % Baso % (Auto) 0.5 (0.2-2.0) % Neut # (Auto) 8.6 H (1.4-6.5) 10^3/uL Lymph # (Auto) 3.0 (1.2-3.8) 10^3/uL [place] # (Auto) 0.9 H (0.3-0.8) 10^3/uL Eos # (Auto) 0.1 (0.0-0.7) 10^3/uL Baso # (Auto) 0.1 (0.0-0.1) 10^3/uL Abs Immat Gran (auto) 0.08 H (0.00-0.03) 10^3/uL Imm/Tot Granulo (auto) 0.6 H (0.0-0.5) % Sodium 135 L (136-145) mmol/L Potassium 3.8 (3.5-5.1) mmol/L Chloride 100 (98-107) mmol/L Carbon Dioxide 27.7 (21.0-32.0) mmol/L Anion Gap 11.1 BUN 11.0 (7.0-18.0) mg/dL Creatinine 0.71 (0.55-1.02) mg/dL Est GFR ( Amer) >60 (>=60 mL/min/1.73m^2) Est GFR (Non-Af Amer) >60 (>=60 mL/min/1.73m^2) BUN/Creatinine Ratio 15.5 Glucose 136 H (74-106) mg/dL Calcium 9.2 (8.5-10.1) mg/dL Total Bilirubin 0.3 (0.2-1.0) mg/dL AST 20 (15-37) U/L ALT 38 (14-59) U/L Alkaline Phosphatase 98 (46-116) U/L Total Protein 7.3 (6.4-8.2) g/dL Albumin 3.3 L (3.4-5.0) g/dL Globulin 4.0 g/dL Albumin/Globulin Ratio 0.8 Lipase <10.0 L (16.0-77.0) U/L Urine Color Yellow (YELLOW) Urine Clarity Clear (CLEAR) Urine pH 6.0 (5.0-9.0) Ur Specific [place] 1.025 (1.005-1.025) Urine Protein Trace (NEG/TRACE) mg/dL Urine Glucose (UA) Negative (NEGATIVE) mg/dL Urine Ketones Negative (NEGATIVE) mg/dL Urine Occult Blood Negative (NEGATIVE) Urine Nitrite Negative (NEGATIVE) Urine Bilirubin Negative (NEGATIVE) Urine Urobilinogen 0.2 (0.2-1.0) EU/dL Ur Leukocyte Esterase Negative (NEGATIVE) Urine RBC 0-2 (0-2) #/HPF Urine WBC 2-5 A (NONE SEEN) #/HPF Ur Squamous Epith Cells Few A (NONE/RARE) #/LPF Urine Crystals None seen (None Seen) #/HPF Urine Bacteria Small A (NONE SEEN) #/HPF Urine Casts None seen (NONE SEEN) #/LPF Urine Mucus Moderate A (NONE SEEN) Ur Culture Indicated? Yes-[facility] [place] Urine HCG, Qual Negative (NEGATIVE) Imaging Data CT scan - abdomen: Attestation: I have reviewed the pertinent imaging results. Discharge Plan Discharge Chief Complaint: Back Pain/Injury Clinical Impression: Low back pain, Abdominal pain, UTI (urinary tract infection) Patient Disposition: Home, Self-Care Time of Disposition Decision: 19:25 Condition: Good Prescriptions / Home Meds: New ketorolac 10 mg tablet 10 mg PO TID PRN (Reason: pain) Qty: 10 0RF cephalexin 500 mg capsule 500 mg PO Q8H 7 Days Qty: 21 0RF ondansetron 4 mg tablet,disintegrating 4 mg PO Q6H PRN (Reason: nausea and vomiting) Qty: 12 0RF No Action ondansetron 4 mg tablet,disintegrating 4 mg PO Q8H PRN (Reason: nausea and vomiting) 3 Days Qty: 10 0RF Print Language: Samoan Instructions: Urinary Tract Infection in Women (ED), Flank Pain (ED) Referrals: [facility] [Primary Care Provider] - 1 week Damon Saunders MD [Physician, Urology] - 1 week
[2025-03-28] MEDS: 0.9 % SODIUM CHLORIDE 1,000 ML 999 ML IV (17:41)
[2025-03-28] MEDS: KETOROLAC TROMETHAMINE 30 MG/ML VIAL IVP (17:41)
[2025-03-28] MEDS: ONDANSETRON PF 4 MG/2 ML VIAL IV (17:41)
[2025-03-28 17:52] LABS: Bilirubin Urine NEGATIVE (NEGATIVE); Blood Urine NEGATIVE (NEGATIVE); Clarity Urine CLEAR (CLEAR); Color Urine YELLOW (YELLOW); Glucose Urine UA NEGATIVE (NEGATIVE); Ketones Urine NEGATIVE (NEGATIVE); Leukocyte Esterase Urine NEGATIVE (NEGATIVE); Nitrite Urine NEGATIVE (NEGATIVE); Protein Urine TRACE mg/dL (NEG/TRACE); Specific Gravity Urine 1.025 (1.005-1.025); Urobilinogen Urine 0.2 EU/dL (0.2-1.0)
[2025-03-28 17:54] LABS: HCG Qualitative Urine* NEGATIVE (NEGATIVE); Internal Control Within Normal Limits
[2025-03-28 17:57] LABS: Basophils Absolute Auto 0.1 10^3/uL (0.0-0.1); Basophils Percent Auto 0.5 % (0.2-2.0); Eosinophils Absolute Auto 0.1 10^3/uL (0.0-0.7); Eosinophils Percent Auto 0.6 % (0.9-7.0); Hematocrit 37.5 % (36.0-48.0); Hemoglobin 12.6 g/dL (12.0-16.0); Immature Granulocytes Abs Auto 0.08 10^3/uL (0.00-0.03); Immature Granulocytes Pct Auto 0.6 % (0.0-0.5); Lymphocytes Percent Auto 23.3 % (20.5-60.0); Mean Corpuscular HGB Conc 33.6 g/dL (29.9-35.2); Mean Corpuscular Hemoglobin 29.4 pg (26.7-34.0); Mean Corpuscular Volume 87.6 fL (81.0-99.0); Mean Platelet Volume 8.4 fL (9.5-13.5); Monocytes Absolute Auto 0.9 10^3/uL (0.3-0.8); Monocytes Percent Auto 6.7 % (1.7-12.0); Neutrophils Absolute Auto 8.6 10^3/uL (1.4-6.5); Neutrophils Percent Auto 68.3 % (43.0-75.0); Platelet Count 358 10^3/uL (150-450); Red Blood Count 4.28 10^6/uL (4.20-5.40); Red Cell Distribution Width 13.4 % (11.0-15.0); White Blood Count 12.7 10^3/uL (4.0-11.0)
[2025-03-28 18:08] LABS: RBC Urine 0-2 #/HPF (0-2)
[2025-03-28 18:09] LABS: Bacteria Urine SMALL #/HPF (NONE SEEN); Cast Seen? NONE SEEN #/LPF (NONE SEEN); Crystals Seen? None Seen #/HPF (None Seen); Mucus Urine MODERATE (NONE SEEN); Squamous Epithelial Cell Urine FEW #/LPF (NONE/RARE); Urine Culture Indicated YES-FRMC
[2025-03-28 18:25] LABS: Alanine Aminotransferase 38 U/L (14-59); Albumin Globulin Ratio 0.8; Albumin Level 3.3 g/dL (3.4-5.0); Alkaline Phosphatase 98 U/L (46-116); Anion Gap 11.1; Aspartate Amino Transferase 20 U/L (15-37); BUN Creatinine Ratio 15.5; Bilirubin Total 0.3 mg/dL (0.2-1.0); Calcium 9.2 mg/dL (8.5-10.1); Carbon Dioxide 27.7 mmol/L (21.0-32.0); Chloride 100 mmol/L (98-107); Estimated GFR (African America >60 (>=60 mL/min/1.73m^2); Estimated GFR (Non-African Ame >60 (>=60 mL/min/1.73m^2); Glucose 136 mg/dL (74-106); Lipase <10.0 U/L (16.0-77.0); Potassium 3.8 mmol/L (3.5-5.1); Sodium 135 mmol/L (136-145); Total Protein 7.3 g/dL (6.4-8.2)
[2025-03-28 19:52] VITALS: BP 141/73; PULSE 77; O2SAT 98
== END 2025-03-28 19:54 | disposition home or self-care (01) ==
PROVIDERS: Physician Assistant; Emergency Provider Emergency Medicine
DX: N39.0 Urinary tract infection, site not specified (principal); M54.50 Low back pain, unspecified; R10.9 Unspecified abdominal pain; Z87.442 Personal history of urinary calculi
CPT/HCPCS: 36415; 74176; 80053; 81001; 83690; 84703; 85025; 87086; 96374; 96375; 99285; J1885; J2405